=== PATIENT | female | born 1935 | race Caucasian/White ===

== ENCOUNTER 2017-09-03 12:40 | Inpatient (IN) | payer MEDICARE, OTHER ==
[2017-09-03] VITALS (8 sets, daily range): BP systolic 103–127; BP diastolic 49–68; PULSE 78–93; RESP 16–20; TEMP 98.2–99.5; O2SAT 93–98
[~2017-09-03] VITALS: Ht 165.1 cm; Wt 94.7 kg
[~2017-09-03 12:40] MED LIST: ACET325 PO; ATOR20TA42 PO; CALTCHW4 PO; CITA-48 PO; COEN400C PO; COUG100S2 PO; ENOX100P SQ; FAMO20TA2 PO; FENO50TA PO; FISH100020 OR; FOSI10TA PO; FURO20 PO; LORA-392 PO; METO50CR PO; NITR0.4S SL; OMEP20TA PO; POTA-267 PO; SM A81CH PO; TOPI25 PO; [UNRECOGNIZED DRUG - CODE] PO
[2017-09-03] MEDS ORDERED: SODIUM CHLOR 0.9% 1000 ML INJ 1,000 ML IV ONE (12:52)
--- NOTE | 2017-09-03 12:59 | PD ---
HPI Chief Complaint: Diarrhea Time Seen by Provider: 12:43 Travel History International Travel<30 days: No Contact w/Intl Traveler<30days: No Traveled to known affect area: No History of Present Illness HPI The patient is a 82-year-old female who presents to the emergency department via EMS for diarrhea. The patient states she developed diarrhea last Tuesday, the diarrhea has been constant per her report. She describes the diarrhea as loose and watery without any visible blood. The patient had a home physician visit her, Dr. Walls, who prescribed Imodium. However, the patient continues to have diarrhea. The patient also complains of intermittent abdominal pain and cramping, does complain of left lower quadrant abdominal pain. The patient denies any fever, chills, or sweats. She denies any history of recent international travel or history of C. difficile. She is unsure if she has been on any antibiotics recently, but does note a recent ulceration to the left lower extremity. Symptoms are moderate. She denies any nausea or vomiting. She is also been trying a brat diet, however, continues to have symptoms. PFSH Past Medical History Arthritis: Yes Asthma: No Anxiety: Yes (TAKE XANAX AT BEDTIME) Depression: No Heart Rhythm Problems: Yes (CARDIO MYOPATHY) Cancer: Yes (BREAST/ MASTECTOMY RIGHT ) Cardiac Catheterization: Yes Cardiomyopathy: Yes Cardiovascular Problems: Yes (CHF) Chest Pain: No Congestive Heart Failure: Yes COPD: No Diabetes: No Diminished Hearing: No GERD: Yes Genitourinary: Yes Hiatal Hernia: No Hypertension: Yes Kidney Stones: No Musculoskeletal: Yes Neurologic: No Psychiatric: No Reproductive: No Respiratory: Yes (SLEEP APNEA) Immunizations Current: Yes Renal Failure: No Sickle Cell Disease: No Sleep Apnea: Yes (DENIES USE OF MACHINES) Thyroid Disease: No Ulcer: No : 1 Para: 0 Past Surgical History Abdominal Surgery: No AICD: Yes Arteriovenous Shunt: No Cardiac Surgery: Yes (PACE MAKER AND DEFIBRILATOR/STENT) Coronary Stent: Yes Ear Surgery: No Endocrine Surgery: No Eye Surgery: Yes (IMPLANTS BILATERAL) Genitourinary Surgery: No Gynecologic Surgery: No Insulin Pump: No Joint Replacement: Yes (RIGHT HIP) Mastectomy: Yes (RIGHT ) Oral Surgery: No Pacemaker: Yes ("METRONIC" PER PATIENT) Thoracic Surgery: No Tonsillectomy: Yes (AND ADENOIDS) Social History Alcohol Use: No Tobacco Use: No (FORMER) Substance Use: No Allergies-Medications (Allergen,Severity, Reaction): Coded Allergies: codeine (Unverified Allergy, Severe, Nausea/Vomiting, 01/05/17) ciprofloxacin (Verified Allergy, Intermediate, Rash, 09/03/17) Rash with itching when given intravenously Reported Meds & Prescriptions Reported Meds & Active Scripts Active Reported Furosemide 20 Mg Tab 20 Mg PO DAILY Tramadol (Tramadol HCl) 50 Mg Tab 50 Mg PO Q6H PRN Loperamide (Loperamide HCl) 2 Mg Tablet Lorazepam 0.5 Mg Tab 0.5 Mg PO Q6H PRN Review of Systems Except as stated in HPI: all other systems reviewed are Neg General / Constitutional: No: Fever HENT: No: Headaches, Lightheadedness Cardiovascular: No: Chest Pain or Discomfort Respiratory: No: Shortness of Breath Gastrointestinal: Positive: Diarrhea, Abdominal Pain, No: Nausea, Vomiting Genitourinary: No: Dysuria Musculoskeletal: Positive: Weakness Neurologic: Positive: Weakness Physical Exam Narrative GENERAL: Awake, alert, pleasant 82-year-old female who appears her stated age and is in no acute respiratory distress. SKIN: Focused skin assessment warm/dry. HEAD: Atraumatic. Normocephalic. EYES: Pupils equal and round. No scleral icterus. No injection or drainage. ENT: No nasal bleeding or discharge. Mucous membranes pink and moist. NECK: Trachea midline. No JVD. CARDIOVASCULAR: Regular rate and rhythm. No murmur appreciated. RESPIRATORY: No accessory muscle use. Clear to auscultation. Breath sounds equal bilaterally. GASTROINTESTINAL: Abdomen soft, obese, tender to palpation left lower quadrant and left upper quadrant. MUSCULOSKELETAL: No obvious deformities. No clubbing. No cyanosis. No edema. Superficial ulceration over the dorsal aspect left foot that measures 2.5 cm x 1 cm, appears old. No acute drainage or bleeding. Minimal surrounding erythema. Positive pulses. NEUROLOGICAL: Awake and alert. No obvious cranial nerve deficits. Motor grossly within normal limits. Normal speech. PSYCHIATRIC: Appropriate mood and affect; insight and judgment normal. Data Data Last Documented VS Vital Signs Date Time Temp Pulse Resp B/P (MAP) Pulse Ox O2 Delivery O2 Flow Rate FiO2 09/03/17 13:07 78 19 103/49 (67) 95 Nasal Cannula 2.00 09/03/17 13:04 98.2 Orders Orders Complete Blood Count With Diff (09/03/17 12:52) Comprehensive Metabolic Panel (09/03/17 12:52) Urinalysis - C+S If Indicated (09/03/17 12:52) Lipase (09/03/17 12:52) Ct Abd/Pel W Iv Contrast(Rout) (09/03/17 ) Iv Access Insert/Monitor (09/03/17 12:52) Ecg Monitoring (09/03/17 12:52) Oximetry (09/03/17 12:52) Morphine Inj (Morphine Inj) (09/03/17 13:00) Ondansetron Inj (Zofran Inj) (09/03/17 13:00) Sodium Chlor 0.9% 1000 Ml Inj (Ns 1000 M (09/03/17 12:52) Sodium Chloride 0.9% Flush (Ns Flush) (09/03/17 13:00) C Diff Toxin Pcr (09/03/17 12:52) Dicyclomine (Bentyl) (09/03/17 13:00) Lactic Acid (09/03/17 12:52) Lorazepam Inj (Ativan Inj) (09/03/17 13:45) Blood Culture (09/03/17 14:17) Urine Culture (09/03/17 13:50) Iodixanol 320 Inj (Rad Ct) (Visipaque 32 (09/03/17 14:45) Ceftriaxone Inj (Rocephin Inj) (09/03/17 15:15) Ciprofloxacin 400 Mg Premix (Cipro 400 M (09/03/17 15:15) Metronidazole 500 Mg Inj (Flagyl 500 Mg (09/03/17 15:15) Ceftriaxone Inj (Rocephin Inj) (09/03/17 15:30) Diphenhydramine Inj (Benadryl Inj) (09/03/17 15:30) Sodium Chlorid 0.9% 500 Ml Inj (Ns 500 M (09/03/17 15:30) Piperacil-Tazo 4.5 Gm Premix (Zosyn 4.5 (09/03/17 15:30) Labs Laboratory Tests Test 09/03/17 13:15 09/03/17 13:50 White Blood Count 13.9 TH/MM3 Red Blood Count 4.61 MIL/MM3 Hemoglobin 15.3 GM/DL Hematocrit 44.0 % Mean Corpuscular Volume 95.5 FL Mean Corpuscular Hemoglobin 33.2 PG Mean Corpuscular Hemoglobin Concent 34.8 % Red Cell Distribution Width 14.8 % Platelet Count 166 TH/MM3 Mean Platelet Volume 7.9 FL Neutrophils (%) (Auto) 75.0 % Lymphocytes (%) (Auto) 13.3 % Monocytes (%) (Auto) 11.4 % Eosinophils (%) (Auto) 0.2 % Basophils (%) (Auto) 0.1 % Neutrophils # (Auto) 10.4 TH/MM3 Lymphocytes # (Auto) 1.8 TH/MM3 Monocytes # (Auto) 1.6 TH/MM3 Eosinophils # (Auto) 0.0 TH/MM3 Basophils # (Auto) 0.0 TH/MM3 CBC Comment AUTO DIFF Differential Total Cells Counted 100 Neutrophils % (Manual) 37 % Band Neutrophils % 36 % Lymphocytes % 12 % Monocytes % 15 % Neutrophils # (Manual) 10.1 TH/MM3 Differential Comment FINAL DIFF MANUAL Toxic Granulation 1+ Toxic Vacuolation PRESENT Platelet Estimate NORMAL Platelet Morphology Comment NORMAL Blood Urea Nitrogen 34 MG/DL Creatinine 1.36 MG/DL Random Glucose 107 MG/DL Total Protein 6.2 GM/DL Albumin 2.9 GM/DL Calcium Level 9.3 MG/DL Alkaline Phosphatase 59 U/L Aspartate Amino Transf (AST/SGOT) 18 U/L Alanine Aminotransferase (ALT/SGPT) 23 U/L Total Bilirubin 1.1 MG/DL Sodium Level 135 MEQ/L Potassium Level 4.0 MEQ/L Chloride Level 103 MEQ/L Carbon Dioxide Level 22.2 MEQ/L Anion Gap 10 MEQ/L Estimat Glomerular Filtration Rate 37 ML/MIN Lactic Acid Level 1.0 mmol/L Lipase 357 U/L Urine Color YELLOW Urine Turbidity HAZY Urine pH 5.5 Urine Specific [place] 1.023 Urine Protein TRACE mg/dL Urine Glucose (UA) NEG mg/dL Urine Ketones NEG mg/dL Urine Occult Blood NEG Urine Nitrite POS Urine Bilirubin NEG Urine Urobilinogen LESS THAN 2.0 MG/DL Urine Leukocyte Esterase LARGE Urine RBC 3 /hpf Urine WBC 29 /hpf Urine WBC Clumps FEW Urine Squamous Epithelial Cells 4 /hpf Urine Transitional Epithelial Cells <1 /hpf Urine Bacteria MANY /hpf Urine Hyaline Casts 11 /lpf Urine Mucus MOD /lpf Microscopic Urinalysis Comment CATH-CULTURE IND MDM Medical Decision Making Medical Screen Exam Complete: Yes Emergency Medical Condition: Yes Medical Record Reviewed: Yes Interpretation(s) Laboratory Tests Test 09/03/17 13:15 09/03/17 13:50 White Blood Count 13.9 TH/MM3 Red Blood Count 4.61 MIL/MM3 Hemoglobin 15.3 GM/DL Hematocrit 44.0 % Mean Corpuscular Volume 95.5 FL Mean Corpuscular Hemoglobin 33.2 PG Mean Corpuscular Hemoglobin Concent 34.8 % Red Cell Distribution Width 14.8 % Platelet Count 166 TH/MM3 Mean Platelet Volume 7.9 FL Neutrophils (%) (Auto) 75.0 % Lymphocytes (%) (Auto) 13.3 % Monocytes (%) (Auto) 11.4 % Eosinophils (%) (Auto) 0.2 % Basophils (%) (Auto) 0.1 % Neutrophils # (Auto) 10.4 TH/MM3 Lymphocytes # (Auto) 1.8 TH/MM3 Monocytes # (Auto) 1.6 TH/MM3 Eosinophils # (Auto) 0.0 TH/MM3 Basophils # (Auto) 0.0 TH/MM3 CBC Comment AUTO DIFF Differential Total Cells Counted 100 Neutrophils % (Manual) 37 % Band Neutrophils % 36 % Lymphocytes % 12 % Monocytes % 15 % Neutrophils # (Manual) 10.1 TH/MM3 Differential Comment FINAL DIFF MANUAL Toxic Granulation 1+ Toxic Vacuolation PRESENT Platelet Estimate NORMAL Platelet Morphology Comment NORMAL Blood Urea Nitrogen 34 MG/DL Creatinine 1.36 MG/DL Random Glucose 107 MG/DL Total Protein 6.2 GM/DL Albumin 2.9 GM/DL Calcium Level 9.3 MG/DL Alkaline Phosphatase 59 U/L Aspartate Amino Transf (AST/SGOT) 18 U/L Alanine Aminotransferase (ALT/SGPT) 23 U/L Total Bilirubin 1.1 MG/DL Sodium Level 135 MEQ/L Potassium Level 4.0 MEQ/L Chloride Level 103 MEQ/L Carbon Dioxide Level 22.2 MEQ/L Anion Gap 10 MEQ/L Estimat Glomerular Filtration Rate 37 ML/MIN Lactic Acid Level 1.0 mmol/L Lipase 357 U/L Urine Color YELLOW Urine Turbidity HAZY Urine pH 5.5 Urine Specific [place] 1.023 Urine Protein TRACE mg/dL Urine Glucose (UA) NEG mg/dL Urine Ketones NEG mg/dL Urine Occult Blood NEG Urine Nitrite POS Urine Bilirubin NEG Urine Urobilinogen LESS THAN 2.0 MG/DL Urine Leukocyte Esterase LARGE Urine RBC 3 /hpf Urine WBC 29 /hpf Urine WBC Clumps FEW Urine Squamous Epithelial Cells 4 /hpf Urine Transitional Epithelial Cells <1 /hpf Urine Bacteria MANY /hpf Urine Hyaline Casts 11 /lpf Urine Mucus MOD /lpf Microscopic Urinalysis Comment CATH-CULTURE IND Last Impressions Abdomen/Pelvis CT 09/03/17 0000 Signed Impressions: Service Date/Time: Sunday, September 03, 2017 14:24 - CONCLUSION: Scan appearance consistent with colitis Ridge Chopra MD Differential Diagnosis Differential diagnosis includes infectious diarrhea, inflammatory diarrhea, diverticulitis, colitis, C. difficile, dehydration, electrolyte abnormality. Narrative Course IV was established, labs are drawn and sent, and the patient was placed on cardiac telemetry monitoring and continuous pulse oximetry monitoring. The patient was administered morphine, Zofran, Bentyl, and IV fluids. C. difficile was ordered. CT of the abdomen and pelvis with IV contrast was obtained. Patient's white count was elevated at 13.9 with bandemia of 36%. UA was positive for UTI. Lactic acid was normal. CT the abdomen and pelvis is consistent with colitis. The patient was administered Cipro for UTI and colitis as well as Flagyl 500 mg intravenously. The patient has colitis, UTI, and leukocytosis with bandemia. Therefore, the patient will be admitted to the on-call medical service. The patient's home health physician is Dr. Walls, therefore, the on-call medical service, [facility], were paged for admission. The patient developed left arm pain and discomfort with itching and a red line from the IV up to the left axilla after the Cipro was started. Therefore, the Cipro was immediately discontinued. The patient was administered IV fluids and Benadryl. The patient was then ordered Rocephin 1 g intravenously for the UTI, we will continue the Flagyl for the colitis. However, I discussed the patient with Dr. Velázquez who request that the patient receive Zosyn. Therefore, the Rocephin was canceled the patient was ordered Zosyn. Sepsis Criteria SIRS Criteria (2 or more): WBC > 93193, < 4000 or > 10% bands Physician Communication Physician Communication [facility] were paged for admission. Diagnosis Primary Impression: Colitis Additional Impressions: UTI (urinary tract infection) Qualified Codes: N30.00 - Acute cystitis without hematuria Bandemia Admitting Information Admitting Physician Requests: Admit Condition: Stable Fly Trent MD Sep 03, 2017 12:59
[2017-09-03] MEDS ORDERED: SODIUM CHLORIDE 0.9% FLUSH 10 ML FLUSH IVF PRN (13:00)
[2017-09-03] MEDS ORDERED: DICYCLOMINE HCL 10 MG CAP PO ONE (13:00)
[2017-09-03] MEDS ORDERED: ONDANSETRON HCL 4 MG/2 ML VIAL IV PUSH ONE (13:00)
[2017-09-03] MEDS ORDERED: MORPHINE SULFATE 4 MG/ML INJ IV PUSH ONE (13:00)
[2017-09-03 13:29] LABS: AUTOMATED NEUTROPHIL # 10.4 TH/MM3 (1.8-7.7); BASOPHIL % 0.1 % (0.0-2.0); EOSINOPHIL % 0.2 % (0.0-4.0); HEMOGLOBIN 15.3 GM/DL (11.6-15.3); LYMPH % 13.3 % (9.0-44.0); LYMPHOCYTE # 1.8 TH/MM3 (1.0-4.8); MEAN CELL VOLUME 95.5 FL (80.0-100.0); MEAN CORPUSCULAR HEMOGLOBIN 33.2 PG (27.0-34.0); MEAN CORPUSCULAR HGB CONC 34.8 % (32.0-36.0); MEAN PLATELET VOLUME 7.9 FL (7.0-11.0); MONO % 11.4 % (0.0-8.0); MONOCYTE # 1.6 TH/MM3 (0-0.9); PLATELET COUNT 166 TH/MM3 (150-450); RED BLOOD COUNT 4.61 MIL/MM3 (4.00-5.30); RED CELL DISTRIBUTION WIDTH 14.8 % (11.6-17.2); WHITE BLOOD COUNT 13.9 TH/MM3 (4.0-11.0)
[2017-09-03 13:45] LABS: ALBUMIN 2.9 GM/DL (3.4-5.0); ALT (GPT) 23 U/L (10-53); AST (GOT) 18 U/L (15-37); BICARBONATE 22.2 MEQ/L (21.0-32.0); BLOOD UREA NITROGEN 34 MG/DL (7-18); CALCIUM 9.3 MG/DL (8.5-10.1); CHLORIDE 103 MEQ/L (98-107); CREATININE 1.36 MG/DL (0.50-1.00); GLOMERULAR FILTRATION RATE 37 ML/MIN (>89); GLUCOSE,RANDOM 107 MG/DL (74-106); SODIUM (NA) 135 MEQ/L (136-145)
[2017-09-03] MEDS ORDERED: LORazepam 2 MG/ML VIAL IV PUSH ONE (13:45)
[2017-09-03 13:48] LABS: ALKALINE PHOSPHATASE 59 U/L (45-117); TOTAL BILIRUBIN ADULT 1.1 MG/DL (0.2-1.0); TOTAL PROTEIN 6.2 GM/DL (6.4-8.2)
[2017-09-03 14:04] LABS: BANDS 36 % (0-6); LYMPHOCYTES 12 % (9-44); MONOCYTES 15 % (0-8); NEUTROPHIL # MANUAL DIFF 10.1 TH/MM3 (1.8-7.7); POLYS (SEG NEUTROPHILS) 37 % (16-70)
[2017-09-03 14:05] LABS: TOXIC GRANULATION 1+ (NORMAL); TOXIC VACUOLATION PRESENT (NONE SEEN)
[2017-09-03] MEDS ORDERED: TRAM50TA PO (14:17)
[2017-09-03] MEDS ORDERED: FURO20TA PO (14:17)
[2017-09-03] MEDS ORDERED: LOPE2TAB21 (14:17)
[2017-09-03] MEDS ORDERED: LORA0.5T PO (14:17)
[2017-09-03 14:20] LABS: BACTERIA, URINE MANY /hpf; BILIRUBIN, URINE NEG (NEG); BLOOD, URINE NEG (NEG); GLUCOSE,URINE NEG (NEG); HYALINE CAST, URINE 11 /lpf (RARE); KETONE, URINE NEG (NEG); MUCUS URINE MOD /lpf (OCC); NITRITE,URINE POS (NEG); PH, URINE 5.5 (5.0-8.5); SQUAMOUS EPITHELIAL CELL URINE 4 /hpf (0-5); TRANSITIONAL EPI CELLS, URINE <1 /hpf; URINE COLOR YELLOW (YELLW/STRAW); URINE LEUKOCYTE ESTERASE LARGE (NEG); WHITE BLOOD CELL CLUMPS FEW
[2017-09-03] MEDS ORDERED: IODIXANOL 320 MG/ML 10 ML VIAL (for Rad CT) IVCONTRAST ONE (14:45)
--- NOTE | 2017-09-03 15:04 | RADRPT ---
EXAM DATE/TIME: 09/03/2017 14:24 [place] COMPARISON: No previous studies available for comparison. INDICATIONS : Lower abdomen pain and diarrhea for one week. IV CONTRAST: 50 cc Visipaque (iodixanol) IV ORAL CONTRAST: No oral contrast ingested. RADIATION DOSE: 15.92 CTDIvol (mGy) MEDICAL HISTORY : Carcinoma, breast. Congestive heart failure. Hypertension. SURGICAL HISTORY : mastectomy ENCOUNTER: Initial ACUITY: 1 week PAIN SCALE: 5/10 LOCATION: Bilateral lower quadrant TECHNIQUE: Volumetric scanning of the abdomen and pelvis was performed. Using automated exposure control and ad justment of the mA and/or kV according to patient size, radiation dose was kept as low as reasonably achievable to obtain optimal diagnostic quality images. DICOM format image data is available electro nically for review and comparison. FINDINGS: LOWER LUNGS: Mild posterior lung base atelectasis. LIVER: Cyst in the dome of the liver. Multiple calcified gallstones. No biliary ductal dilatation. No suspic ious mass. SPLEEN: Normal size without lesion. PANCREAS: Within normal limits. KIDNEYS: Nonobstructing midpole left renal stone. Bilateral renal cysts. No evidence of hydronephrosis. ADRENAL GLANDS: Within normal limits. VASCULAR: There is no aortic aneurysm. BOWEL/MESENTERY: Mild concentric wall thickening involving the colon, most conspicuously involving the ascending colon and the rectosigmoid with slight pericolic fatty tissue induration, appearance most consistent with colitis. The small bowel is nondilated. There is minimal free pelvic fluid identified. No loculated c ollections. No extraluminal air. ABDOMINAL WALL: Within normal limits. RETROPERITONEUM: There is no lymphadenopathy. BLADDER: No wall thickening or mass. REPRODUCTIVE: Within normal limits. INGUINAL: There is no lymphadenopathy or hernia. MUSCULOSKELETAL: Within normal limits for patient age. CONCLUSION: Scan appearance consistent with colitis Ridge Chopra MD on September 03, 2017 at 14:58 Board Certified Radiologist. This report was verified electronically.
[2017-09-03] MEDS ORDERED: metroNIDAZOLE 500 MG INJ 100 ML IV ONE (15:15)
[2017-09-03] MEDS ORDERED: CIPROFLOXACIN 400 MG PREMIX 200 ML IV ONE (15:15)
[2017-09-03] MEDS ORDERED: cefTRIAXone INJ 1,000 MG in SODIUM CHLORIDE 0.9% INJ 100 ML IV ONE ×2 (15:15→15:30)
[2017-09-03] MEDS ORDERED: diphenhydrAMINE HCL 50 MG/ML VIAL IV PUSH ONE (15:30)
[2017-09-03] MEDS ORDERED: PIPERACIL-TAZO 4.5 GM PREMIX 100 ML IV ONE (15:30)
[2017-09-03] MEDS ORDERED: SODIUM CHLORID 0.9% 500 ML INJ 500 ML IV ONE (15:30)
[2017-09-03] MEDS ORDERED: ACETAMINOPHEN 325 MG TAB PO PRN (15:45)
[2017-09-03] MEDS ORDERED: LACTULOSE SYRUP 20 GM/30 ML CUP PO PRN (15:45)
[2017-09-03] MEDS ORDERED: ONDANSETRON HCL 4 MG/2 ML VIAL IVP PRN (15:45)
[2017-09-03] MEDS ORDERED: SODIUM CHLORIDE 0.9% FLUSH 10 ML FLUSH IV FLUSH PRN (15:45)
[2017-09-03] MEDS ORDERED: MAGNESIUM HYDROXIDE SUSP 30 ML CUP PO PRN (15:45)
[2017-09-03] MEDS ORDERED: NALOXONE HCL 0.4 MG/ML AMP IV PUSH PRN (15:45)
[2017-09-03] MEDS ORDERED: BISACODYL 10 MG SUPP RECTAL PRN (15:45)
[2017-09-03] MEDS ORDERED: SENNOSIDES 8.6 MG TAB PO PRN (15:45)
--- NOTE | 2017-09-03 15:50 | HHI.HP ---
HPI Service [facility] Hospitalists Primary Care Physician Babar Aparicio MD Admission Diagnosis Colitis, UTI, leukocytosis with bandemia Diagnoses: Chief Complaint: Diarrhea Travel History International Travel<30 Days: No Contact w/Intl Traveler <30 Da: No Traveled to Known Affected Are: No History of Present Illness This is an 82-year-old female with extensive past medical history as stated below who presents to [facility] complaining of diarrhea. The patient states that she developed diarrhea last Tuesday and the diarrhea has been constant. The patient complains of diffuse abdominal pain, constant, nonradiating, more localized over the left side of the abdomen. The patient also states she has had decreased appetite and decreased oral intake. The patient states she has been seen by Dr. Walls who gave her an antibiotic and also Imodium. However the patient continued to have diarrhea. The patient denies fevers or chills, patient states at times she had intermittent abdominal pain and cramping. Patient denies nausea vomiting or diarrhea. The patient denies any recent travel, sick contacts or history of C. difficile. Review of Systems As per HPI, other systems reviewed by me and negative. Past Family Social History Past Medical History 1. Hypertension 2. GERD 3. Chronic UTI. 3. Hyperlipidemia. 4. Depression. 5. Osteoporosis. 6. Also arthritis. 7. Breast cancer status post mastectomy. Past Surgical History 1. Mastectomy. 2. AICD. 3. Cardiac catheterization. 4. Right total hip arthroplasty. 5. Dupuytren's release in both hands. Reported Medications Reported Meds & Active Scripts Active Reported Furosemide 20 Mg Tab 20 Mg PO DAILY Tramadol (Tramadol HCl) 50 Mg Tab 50 Mg PO Q6H PRN Loperamide (Loperamide HCl) 2 Mg Tablet Lorazepam 0.5 Mg Tab 0.5 Mg PO Q6H PRN Allergies: Coded Allergies: codeine (Unverified Allergy, Severe, Nausea/Vomiting, 01/05/17) ciprofloxacin (Verified Allergy, Intermediate, Rash, 09/03/17) Rash with itching when given intravenously Active Ordered Medications Current Medications Medications (Trade) Dose Ordered Sig/Dianne Route Start Time Stop Time Status Last Admin Sodium Chloride 1,000 ml @ 125 mls/hr Q8H ONCE IV 09/03/17 12:52 09/03/17 20:51 09/03/17 13:24 (NS Flush) 2 ml UNSCH PRN IVF 09/03/17 13:00 09/03/17 13:25 Ciprofloxacin/ Dextrose 200 ml @ 200 mls/hr ONCE ONCE IV 09/03/17 15:15 09/03/17 16:14 Metronidazole 100 ml @ 100 mls/hr ONCE ONCE IV 09/03/17 15:15 09/03/17 16:14 09/03/17 15:25 Sodium Chloride 500 ml @ 500 mls/hr BOLUS ONCE IV 09/03/17 15:30 09/03/17 16:29 09/03/17 15:25 Piperacillin Sod/ Tazobactam Sod 100 ml @ 200 mls/hr ONCE ONCE IV 09/03/17 15:30 09/03/17 15:59 Family History Patient's father at 89 years old. Patient's mother of unknown causes. Social History Patient denies smoking, denies alcohol or illegal drug use. Physical Exam Vital Signs Vital Signs Date Time Temp Pulse Resp B/P (MAP) Pulse Ox O2 Delivery O2 Flow Rate FiO2 09/03/17 13:07 78 19 103/49 (67) 95 Nasal Cannula 2.00 09/03/17 13:04 98.2 79 19 103/49 (67) Physical Exam GENERAL: This is a well-nourished, well-developed patient, in no apparent distress. SKIN: No rashes, ecchymoses or lesions. Cool and dry. HEAD: Atraumatic. Normocephalic. No temporal or scalp tenderness. EYES: Pupils equal round and reactive. Extraocular motions intact. No scleral icterus. No injection or drainage. ENT: Nose without bleeding, purulent drainage or septal hematoma. Throat without erythema, tonsillar hypertrophy or exudate. Uvula midline. Airway patent. NECK: Trachea midline. No JVD or lymphadenopathy. Supple, nontender, no meningeal signs. CARDIOVASCULAR: Regular rate and rhythm without murmurs, gallops, or rubs. RESPIRATORY: Clear to auscultation. Breath sounds equal bilaterally. No wheezes , rales, or rhonchi. GASTROINTESTINAL: Abdomen soft, mildly distended, tender to palpation diffusely but more localized over the left side of the abdomen and left lower quadrant. No hepato-splenomegaly, or palpable masses. No guarding. MUSCULOSKELETAL: Extremities without clubbing, cyanosis, or edema. No joint tenderness, effusion, or edema noted. No calf tenderness. Negative Homans sign bilaterally. NEUROLOGICAL: Awake and alert. Cranial nerves II through XII intact. Motor and sensory grossly within normal limits. Five out of 5 muscle strength in all muscle groups. Normal speech. Laboratory Laboratory Tests Test 09/03/17 13:15 09/03/17 13:50 White Blood Count 13.9 Red Blood Count 4.61 Hemoglobin 15.3 Hematocrit 44.0 Mean Corpuscular Volume 95.5 Mean Corpuscular Hemoglobin 33.2 Mean Corpuscular Hemoglobin Concent 34.8 Red Cell Distribution Width 14.8 Platelet Count 166 Mean Platelet Volume 7.9 Neutrophils (%) (Auto) 75.0 Lymphocytes (%) (Auto) 13.3 Monocytes (%) (Auto) 11.4 Eosinophils (%) (Auto) 0.2 Basophils (%) (Auto) 0.1 Neutrophils # (Auto) 10.4 Lymphocytes # (Auto) 1.8 Monocytes # (Auto) 1.6 Eosinophils # (Auto) 0.0 Basophils # (Auto) 0.0 CBC Comment AUTO DIFF Differential Total Cells Counted 100 Neutrophils % (Manual) 37 Band Neutrophils % 36 Lymphocytes % 12 Monocytes % 15 Neutrophils # (Manual) 10.1 Differential Comment FINAL DIFF MANUAL Toxic Granulation 1+ Toxic Vacuolation PRESENT Platelet Estimate NORMAL Platelet Morphology Comment NORMAL Blood Urea Nitrogen 34 Creatinine 1.36 Random Glucose 107 Total Protein 6.2 Albumin 2.9 Calcium Level 9.3 Alkaline Phosphatase 59 Aspartate Amino Transf (AST/SGOT) 18 Alanine Aminotransferase (ALT/SGPT) 23 Total Bilirubin 1.1 Sodium Level 135 Potassium Level 4.0 Chloride Level 103 Carbon Dioxide Level 22.2 Anion Gap 10 Estimat Glomerular Filtration Rate 37 Lactic Acid Level 1.0 Lipase 357 Urine Color YELLOW Urine Turbidity HAZY Urine pH 5.5 Urine Specific [place] 1.023 Urine Protein TRACE Urine Glucose (UA) NEG Urine Ketones NEG Urine Occult Blood NEG Urine Nitrite POS Urine Bilirubin NEG Urine Urobilinogen LESS THAN 2.0 Urine Leukocyte Esterase LARGE Urine RBC 3 Urine WBC 29 Urine WBC Clumps FEW Urine Squamous Epithelial Cells 4 Urine Transitional Epithelial Cells <1 Urine Bacteria MANY Urine Hyaline Casts 11 Urine Mucus MOD Microscopic Urinalysis Comment CATH-CULTURE IND Date/Time Source Procedure Growth Status 09/03/17 14:45 Blood Peripheral Aerobic Blood Culture Pending Received 09/03/17 14:45 Blood Peripheral Anaerobic Blood Culture Pending Received 09/03/17 13:50 Urine Catheterized Urine Urine Culture Pending Received Result Diagram: 09/03/17 1315 09/03/17 1315 Imaging Last Impressions Abdomen/Pelvis CT 09/03/17 0000 Signed Impressions: Service Date/Time: Sunday, September 03, 2017 14:24 - CONCLUSION: Scan appearance consistent with colitis Ridge Chopra MD Reviewed by me. Caprini VTE Risk Assessment Caprini VTE Risk Assessment: Mod/High Risk (score >= 2) Caprini Risk Assessment Model Point Value = 1 Point Value = 2 Point Value = 3 Point Value = 5 Age 41-60 Minor surgery BMI > 25 kg/m2 Swollen legs Varicose veins or History of unexplained or recurrent spontaneous Oral contraceptives or hormone replacement Sepsis (< 1 month) Serious lung disease, including pneumonia (< 1 month) Abnormal pulmonary function Acute myocardial infarction Congestive heart failure (< 1 month) History of inflammatory bowel disease Medical patient at bed rest Age 61-74 Arthroscopic surgery Major open surgery (> 45 min) Laparoscopic surgery (> 45 min) Malignancy Confined to bed (> 72 hours) Immobilizing plaster cast Central venous access Age >= 75 History of VTE Family history of VTE Factor V Leiden Prothrombin [id number] Lupus anticoagulant Anticardiolipin antibodies Elevated serum homocysteine Heparin-induced thrombocytopenia Other congenital or acquired thrombophilia Stroke (< 1 month) Elective arthroplasty Hip, pelvis, or leg fracture Acute spinal cord injury (< 1 month) Prophylaxis Regimen Total Risk Factor Score Risk Level Prophylaxis Regimen 0-1 Low Early ambulation 2 Moderate Order ONE of the following: *Sequential Compression Device (SCD) *Heparin 5000 units SQ BID 3-4 Higher Order ONE of the following medications: *Heparin 5000 units SQ TID *Enoxaparin/Lovenox 40 mg SQ daily (WT < 150 kg, CrCl > 30 mL/min) *Enoxaparin/Lovenox 30 mg SQ daily (WT < 150 kg, CrCl > 10-29 mL/min) *Enoxaparin/Lovenox 30 mg SQ BID (WT < 150 kg, CrCl > 30 mL/min) AND/OR *Sequential Compression Device (SCD) 5 or more Highest Order ONE of the following medications: *Heparin 5000 units SQ TID (Preferred with Epidurals) *Enoxaparin/Lovenox 40 mg SQ daily (WT < 150 kg, CrCl > 30 mL/min) *Enoxaparin/Lovenox 30 mg SQ daily (WT < 150 kg, CrCl > 10-29 mL/min) *Enoxaparin/Lovenox 30 mg SQ BID (WT < 150 kg, CrCl > 30 mL/min) AND *Sequential Compression Device (SCD) Assessment and Plan Problem List: (1) Colitis ICD Code: K52.9 - Noninfective gastroenteritis and colitis, unspecified Status: Acute (2) UTI (urinary tract infection) ICD Code: N39.0 - Urinary tract infection, site not specified Status: Acute (3) Bandemia ICD Code: D72.825 - Bandemia Status: Acute (4) AICD (automatic cardioverter/defibrillator) present ICD Code: Z95.810 - AICD (automatic cardioverter/defibrillator) present Status: Acute (5) INA (acute kidney injury) ICD Code: N17.9 - Acute kidney failure, unspecified Status: Acute Plan: As per review of records the patient has a baseline creatinine of 0.7- 0.8. Likely due to prerenal azotemia and dehydration from diarrhea. (6) Diarrhea ICD Code: R19.7 - Diarrhea, unspecified Assessment and Plan Admit the patient to medical floor IV fluids IV Zosyn. Follow-up blood cultures Epigastric normal Monitor BUN/creatinine, avoid nephrotoxins, history I's and O's. Monitor CBC with differential. Follow-up urine culture Clear liquid diet Consult neurology Obtain stool studies Hold Imodium and furosemide. Follow-up received toxin PCR ordered by the emergency department. Hold antihypertensive medications Resume statin and other chronic medications once medication reconciliation form has been completed. Lovenox subcutaneously and SCDs for DVT prophylaxis. Code Status Full code Discussed Condition With ED physician, patient. Physician Certification 2 Midnight Certification Type: Admission for Inpatient Services Order for Inpatient Services The services are ordered in accordance with Medicare regulations or non- Medicare payer requirements, as applicable. In the case of services not specified as inpatient-only, they are appropriately provided as inpatient services in accordance with the 2-midnight benchmark. Estimated LOS (days): 3 days is the estimated time the patient will need to remain in the hospital, assuming treatment plan goals are met and no additional complications. Post-Hospital Plan: Not yet determined Problem Qualifiers (1) UTI (urinary tract infection): Qualified Codes: N30.00 - Acute cystitis without hematuria Erik Neil MD Sep 03, 2017 15:50
[2017-09-03] MEDS: SODIUM CHLOR 0.9% 1000 ML INJ 1,000 ML IV SCH (16:30)
[2017-09-03] MEDS ORDERED: FOSI10TA PO (16:59)
[2017-09-03] MEDS ORDERED: FAMO20TA2 PO (16:59)
[2017-09-03] MEDS ORDERED: METO50TA PO (16:59)
[2017-09-03] MEDS ORDERED: NITR1CAP36 PO (16:59)
[2017-09-03] MEDS ORDERED: CITA40TA4 PO (16:59)
[2017-09-03] MEDS ORDERED: ATOR20TA15 PO (16:59)
[2017-09-03] MEDS ORDERED: TOPI25TA7 PO (16:59)
[2017-09-03] MEDS ORDERED: OMEP20TA93 PO (16:59)
[2017-09-03] MEDS ORDERED: ASPI81CH6 CHEW (16:59)
[2017-09-03] MEDS ORDERED: FENO145T2 PO (16:59)
[2017-09-03] MEDS: ENOXAPARIN SODIUM 40 MG/0.4 ML SYRINGE SQ SCH (19:11)
[2017-09-03] MEDS: DOCUSATE SODIUM 50 MG/SENNA 8.6 MG TAB PO SCH (20:48)
[2017-09-03] MEDS: SODIUM CHLORIDE 0.9% FLUSH 10 ML FLUSH IV FLUSH SCH (20:48)
[2017-09-03] MEDS: PIPERACIL-TAZO 2.25 GM PREMIX 50 ML IV SCH (23:25)
[2017-09-04] VITALS (9 sets, daily range): BP systolic 100–120; BP diastolic 54–60; PULSE 69–108; RESP 20–22; TEMP 98.5–99.9; O2SAT 92–94
[2017-09-04] MEDS: SODIUM CHLOR 0.9% 1000 ML INJ 1,000 ML IV SCH ×2 (01:32→04:52)
[2017-09-04 05:16] LABS: AUTOMATED NEUTROPHIL # 12.3 TH/MM3 (1.8-7.7); BASOPHIL % 0.1 % (0.0-2.0); HEMATOCRIT 40.8 % (35.0-46.0); LYMPH % 8.7 % (9.0-44.0); LYMPHOCYTE # 1.3 TH/MM3 (1.0-4.8); MEAN CORPUSCULAR HEMOGLOBIN 32.9 PG (27.0-34.0); MEAN CORPUSCULAR HGB CONC 34.3 % (32.0-36.0); MEAN PLATELET VOLUME 7.6 FL (7.0-11.0); MONO % 8.6 % (0.0-8.0); MONOCYTE # 1.3 TH/MM3 (0-0.9); NEUT % 82.6 % (16.0-70.0); PLATELET COUNT 155 TH/MM3 (150-450); RED BLOOD COUNT 4.25 MIL/MM3 (4.00-5.30); RED CELL DISTRIBUTION WIDTH 14.9 % (11.6-17.2); WHITE BLOOD COUNT 14.8 TH/MM3 (4.0-11.0)
[2017-09-04 05:34] LABS: ALBUMIN 2.1 GM/DL (3.4-5.0); ALKALINE PHOSPHATASE 53 U/L (45-117); ALT (GPT) 19 U/L (10-53); AST (GOT) 17 U/L (15-37); BLOOD UREA NITROGEN 26 MG/DL (7-18); CHLORIDE 110 MEQ/L (98-107); GLOMERULAR FILTRATION RATE 43 ML/MIN (>89); GLUCOSE,RANDOM 156 MG/DL (74-106); SODIUM (NA) 138 MEQ/L (136-145); TOTAL BILIRUBIN ADULT 1.5 MG/DL (0.2-1.0); TOTAL PROTEIN 4.9 GM/DL (6.4-8.2)
[2017-09-04] MEDS: PIPERACIL-TAZO 2.25 GM PREMIX 50 ML IV SCH (08:19)
[2017-09-04] MEDS: DOCUSATE SODIUM 50 MG/SENNA 8.6 MG TAB PO SCH ×2 (08:19→21:00)
[2017-09-04] MEDS: SODIUM CHLORIDE 0.9% FLUSH 10 ML FLUSH IV FLUSH SCH ×2 (08:19→21:00)
[2017-09-04] MEDS ORDERED: PNEUMOCOCCAL POLYVALENT INJ 25 MCG/0.5 ML SYR IM ONE (10:00)
--- NOTE | 2017-09-04 10:36 | PD.CONS ---
HPI History of Present Illness This is a 82 year old female with past medical history of CHF, chronic UTI, arthritis, HTN, GERD who presents to [facility] with complaints of diarrhea for the past week. The patient states that she developed diarrhea last Tuesday and the diarrhea has been constant. The patient complains of diffuse abdominal pain, constant, nonradiating, in lower abdomen. The patient also states she has had decreased appetite and decreased oral intake. She has associated nausea, denies hematochezia or melena or vomiting, denies fever or chills. The patient states she has been seen by Dr. aWlls who gave her an antibiotic and Imodium, but the diarrhea continued. T The patient denies any recent travel, sick contacts or history of C. difficile or similar history. States colonoscopy was yrs ago and that showed polyps. CT done and that showed colitis. (John Dockery) PFSH Past Medical History 1. Hypertension 2. GERD 3. Chronic UTI. 3. Hyperlipidemia. 4. Depression. 5. Osteoporosis. 6. Also arthritis. 7. Breast cancer status post mastectomy. 8. CHF Past Surgical History 1. Mastectomy. 2. AICD. 3. Cardiac catheterization. 4. Right total hip arthroplasty. 5. Dupuytren's release in both hands. (John Dockery) Coded Allergies: codeine (Unverified Allergy, Severe, Nausea/Vomiting, 01/05/17) ciprofloxacin (Verified Allergy, Intermediate, Rash, 09/03/17) Rash with itching when given intravenously Medications Current Medications Medications (Trade) Dose Ordered Sig/Dianne Route Start Time Stop Time Status Last Admin Sodium Chloride 1,000 ml @ 100 mls/hr Q10H IV 09/03/17 15:32 09/04/17 04:52 (NS Flush) 2 ml UNSCH PRN IV FLUSH 09/03/17 15:45 (NS Flush) 2 ml BID IV FLUSH 09/03/17 21:00 (Tylenol) 650 mg Q4H PRN PO 09/03/17 15:45 (Zofran Inj) 4 mg Q6H PRN IVP 09/03/17 15:45 09/04/17 01:56 (Lovenox Inj) 40 mg Q24H SQ 09/03/17 17:00 09/03/17 19:11 (Narcan Inj) 0.4 mg UNSCH PRN IV PUSH 09/03/17 15:45 (Allison-Colace) 1 tab BID PO 09/03/17 21:00 (Milk Of Magnesia Liq) 30 ml Q12H PRN PO 09/03/17 15:45 (Senokot) 17.2 mg Q12H PRN PO 09/03/17 15:45 (Dulcolax Supp) 10 mg DAILY PRN RECTAL 09/03/17 15:45 (Lactulose Liq) 30 ml DAILY PRN PO 09/03/17 15:45 Piperacillin Sod/ Tazobactam Sod 50 ml @ 100 mls/hr Q8H IV 09/04/17 00:00 09/04/17 08:19 Family History Patient's father at 89 years old. Patient's mother of unknown causes. Social History Patient denies smoking, denies alcohol or illegal drug use. (John Dockery) Review of Systems Constitutional: COMPLAINS OF: Change in appetite, DENIES: Fatigue, Fever, Chills Endocrine: DENIES: Polyuria Eyes: DENIES: Double Vision Ears, nose, mouth, throat: DENIES: Hoarseness Respiratory: DENIES: Shortness of breath Cardiovascular: DENIES: Lower Extremity Edema Gastrointestinal: COMPLAINS OF: Abdominal pain, Diarrhea, Nausea, DENIES: Black stools, Bloody stools, Constipation, Vomiting, Difficulty Swallowing, Anorexia, Odynophagia, Swelling of Abdomen, Heartburn, Hematemesis Genitourinary: DENIES: Hematuria Musculoskeletal: DENIES: Neck pain Integumentary: DENIES: Jaundice Hematologic/lymphatic: DENIES: Bruising Immunologic/allergic: DENIES: Eczema Neurologic: DENIES: Abnormal gait Psychiatric: DENIES: Anxiety (John Dockery) GI Exam Vitals I&O Vital Signs Date Time Temp Pulse Resp B/P (MAP) Pulse Ox O2 Delivery O2 Flow Rate FiO2 09/04/17 08:00 100 09/04/17 08:00 98.8 100 20 115/59 (77) 92 09/04/17 04:09 97 09/04/17 04:00 99.9 90 20 113/58 (76) 94 09/04/17 00:10 90 09/03/17 23:32 99.5 93 16 127/57 (80) 93 09/03/17 20:16 96 Nasal Cannula 2.00 09/03/17 20:06 84 09/03/17 20:00 99.2 82 20 119/56 (77) 97 09/03/17 20:00 Nasal Cannula 2.00 09/03/17 17:33 Nasal Cannula 2.00 09/03/17 17:12 105/68 (80) 96 Nasal Cannula 2.00 09/03/17 17:00 98.5 81 20 125/53 (77) 98 09/03/17 13:07 78 19 103/49 (67) 95 Nasal Cannula 2.00 09/03/17 13:04 98.2 79 19 103/49 (67) I/O 09/03/17 09/03/17 09/03/17 09/04/17 09/04/17 09/04/17 07:00 15:00 23:00 07:00 15:00 23:00 Output Total 5 ml Balance -5 ml Output Urine Total 3 ml Stool Total 2 ml Imaging Last Impressions Abdomen/Pelvis CT 09/03/17 0000 Signed Impressions: Service Date/Time: Sunday, September 03, 2017 14:24 - CONCLUSION: Scan appearance consistent with colitis Ridge Chopra MD Laboratory Test 09/03/17 13:15 09/03/17 13:50 09/04/17 04:40 White Blood Count 13.9 TH/MM3 14.8 TH/MM3 Red Blood Count 4.61 MIL/MM3 4.25 MIL/MM3 Hemoglobin 15.3 GM/DL 14.0 GM/DL Hematocrit 44.0 % 40.8 % Mean Corpuscular Volume 95.5 FL 96.0 FL Mean Corpuscular Hemoglobin 33.2 PG 32.9 PG Mean Corpuscular Hemoglobin Concent 34.8 % 34.3 % Red Cell Distribution Width 14.8 % 14.9 % Platelet Count 166 TH/MM3 155 TH/MM3 Mean Platelet Volume 7.9 FL 7.6 FL Neutrophils (%) (Auto) 75.0 % 82.6 % Lymphocytes (%) (Auto) 13.3 % 8.7 % Monocytes (%) (Auto) 11.4 % 8.6 % Eosinophils (%) (Auto) 0.2 % 0.0 % Basophils (%) (Auto) 0.1 % 0.1 % Neutrophils # (Auto) 10.4 TH/MM3 12.3 TH/MM3 Lymphocytes # (Auto) 1.8 TH/MM3 1.3 TH/MM3 Monocytes # (Auto) 1.6 TH/MM3 1.3 TH/MM3 Eosinophils # (Auto) 0.0 TH/MM3 0.0 TH/MM3 Basophils # (Auto) 0.0 TH/MM3 0.0 TH/MM3 CBC Comment AUTO DIFF DIFF FINAL Differential Total Cells Counted 100 Neutrophils % (Manual) 37 % Band Neutrophils % 36 % Lymphocytes % 12 % Monocytes % 15 % Neutrophils # (Manual) 10.1 TH/MM3 Differential Comment FINAL DIFF MANUAL Toxic Granulation 1+ Toxic Vacuolation PRESENT Platelet Estimate NORMAL Platelet Morphology Comment NORMAL Blood Urea Nitrogen 34 MG/DL 26 MG/DL Creatinine 1.36 MG/DL 1.20 MG/DL Random Glucose 107 MG/DL 156 MG/DL Total Protein 6.2 GM/DL 4.9 GM/DL Albumin 2.9 GM/DL 2.1 GM/DL Calcium Level 9.3 MG/DL 8.0 MG/DL Alkaline Phosphatase 59 U/L 53 U/L Aspartate Amino Transf (AST/SGOT) 18 U/L 17 U/L Alanine Aminotransferase (ALT/SGPT) 23 U/L 19 U/L Total Bilirubin 1.1 MG/DL 1.5 MG/DL Sodium Level 135 MEQ/L 138 MEQ/L Potassium Level 4.0 MEQ/L 3.6 MEQ/L Chloride Level 103 MEQ/L 110 MEQ/L Carbon Dioxide Level 22.2 MEQ/L 21.0 MEQ/L Anion Gap 10 MEQ/L 7 MEQ/L Estimat Glomerular Filtration Rate 37 ML/MIN 43 ML/MIN Lactic Acid Level 1.0 mmol/L Lipase 357 U/L Urine Color YELLOW Urine Turbidity HAZY Urine pH 5.5 Urine Specific [place] 1.023 Urine Protein TRACE mg/dL Urine Glucose (UA) NEG mg/dL Urine Ketones NEG mg/dL Urine Occult Blood NEG Urine Nitrite POS Urine Bilirubin NEG Urine Urobilinogen LESS THAN 2.0 MG/DL Urine Leukocyte Esterase LARGE Urine RBC 3 /hpf Urine WBC 29 /hpf Urine WBC Clumps FEW Urine Squamous Epithelial Cells 4 /hpf Urine Transitional Epithelial Cells <1 /hpf Urine Bacteria MANY /hpf Urine Hyaline Casts 11 /lpf Urine Mucus MOD /lpf Microscopic Urinalysis Comment CATH-CULTURE IND Date/Time Source Procedure Growth Status 09/03/17 14:45 Blood Peripheral Aerobic Blood Culture Pending Received 09/03/17 14:45 Blood Peripheral Anaerobic Blood Culture Pending Received 09/03/17 13:50 Urine Catheterized Urine Urine Culture Pending Received Physical Examination HEENT: normocephalic; atraumatic; no jaundice. CHEST: Chest is clear to auscultation and percussion. CARDIAC: Regular rate and rhythm with no murmur gallop or rubs. ABDOMEN: Soft, nondistended, lower abd tenderness; no hepatosplenomegaly; bowel sounds are present in all four quadrants. EXTREMITIES: No clubbing, cyanosis, or edema. SKIN: some ecchymosis COMMUNICATIONS PROFESSOR: No focal deficits; alert and oriented times three. (John Dockery) Assessment and Plan Plan - Colitis- Diarrhea for one week, CT showed colitis, stools ordered but pt hasn' t had a BM, she is having lower abd pain and nausea No previous hx of this, colonoscopy yrs ago, on Cipro and Flagyl - Leukocytosis- secondary to above, on Cipro and Flagyl - Chronic UTI- on abx - HTN per attending Plan: - Clear liquids - Colonoscopy in - [facility] today - NPO mn - Consents - Cont. Cipro and Flagyl - Await stools studies - Patient seen and examined by Dr. Sage and myself and this note is written on his behalf. (John Dockery) Plan Patient was seen and examined, agree with above note, significant colitis on CT scan, we will plan on doing colonoscopy, patient is worried about cancer since she has a family history her mom had colon cancer, further plan depends on the finding (Parker Sage MD) John Dockery Sep 04, 2017 10:36 Parker Sage MD Sep 04, 2017 15:12
--- NOTE | 2017-09-04 11:28 | HHI.PR ---
Subjective Remarks Patient reports she is feeling okay. Still having some diffuse abdominal discomfort. Objective Vitals Vital Signs Date Time Temp Pulse Resp B/P (MAP) Pulse Ox O2 Delivery O2 Flow Rate FiO2 09/04/17 11:00 Nasal Cannula 2.00 09/04/17 09:00 Nasal Cannula 2.00 09/04/17 08:00 100 09/04/17 08:00 98.8 100 20 115/59 (77) 92 09/04/17 04:09 97 09/04/17 04:00 99.9 90 20 113/58 (76) 94 09/04/17 00:10 90 09/03/17 23:32 99.5 93 16 127/57 (80) 93 09/03/17 20:16 96 Nasal Cannula 2.00 09/03/17 20:06 84 09/03/17 20:00 99.2 82 20 119/56 (77) 97 09/03/17 20:00 Nasal Cannula 2.00 09/03/17 17:33 Nasal Cannula 2.00 09/03/17 17:12 105/68 (80) 96 Nasal Cannula 2.00 09/03/17 17:00 98.5 81 20 125/53 (77) 98 09/03/17 13:07 78 19 103/49 (67) 95 Nasal Cannula 2.00 09/03/17 13:04 98.2 79 19 103/49 (67) I/O 09/03/17 09/03/17 09/03/17 09/04/17 09/04/17 09/04/17 07:00 15:00 23:00 07:00 15:00 23:00 Output Total 5 ml Balance -5 ml Output Urine Total 3 ml Stool Total 2 ml Result Diagram: 09/04/17 0440 09/04/17 0440 Imaging Last Impressions Abdomen/Pelvis CT 09/03/17 0000 Signed Impressions: Service Date/Time: Sunday, September 03, 2017 14:24 - CONCLUSION: Scan appearance consistent with colitis Ridge Chopra MD Objective Remarks GENERAL: This is a well-nourished, well-developed patient, in no apparent distress. CARDIOVASCULAR: Normal rate and regular rhythm without murmurs, gallops, or rubs. RESPIRATORY: Good respiratory efforts. Breath sounds equal and clear to auscultation bilaterally. GASTROINTESTINAL: Abdomen soft, diffuse mild tenderness to palpation. MUSCULOSKELETAL: Extremities without cyanosis, or edema. NEURO: Alert & Oriented x4 to person, place, time, situation. Moves all ext x4 PSYCH: Appropriate mood and affect. A/P Problem List: (1) Colitis ICD Code: K52.9 - Noninfective gastroenteritis and colitis, unspecified Status: Acute Plan: Etiology unclear. C. difficile PCR pending. Patient has been evaluated by GI Continue IV Zosyn. GI planning for colonoscopy tomorrow. Clear liquid diet as tolerated. (2) UTI (urinary tract infection) ICD Code: N39.0 - Urinary tract infection, site not specified Status: Acute Plan: On Zosyn. Follow urine cultures. (3) INA (acute kidney injury) ICD Code: N17.9 - Acute kidney failure, unspecified Status: Acute Plan: As per review of records the patient has a baseline creatinine of 0.7- 0.8. Likely due to prerenal azotemia and dehydration from diarrhea. Improving. Continue IV hydration. (4) Bandemia ICD Code: D72.825 - Bandemia Status: Acute (5) AICD (automatic cardioverter/defibrillator) present ICD Code: Z95.810 - AICD (automatic cardioverter/defibrillator) present Status: Acute (6) Diarrhea ICD Code: R19.7 - Diarrhea, unspecified Problem Qualifiers (1) UTI (urinary tract infection): Qualified Codes: N30.00 - Acute cystitis without hematuria Trinity Topete MD Sep 04, 2017 11:28
[2017-09-04] MEDS ORDERED: PEG (High)/E-LYTE SOLN 4000 ML BTL PO ONE (16:00)
[2017-09-04] MEDS: TOPIRAMATE 25 MG TAB PO SCH (16:14)
[2017-09-04] MEDS: ENOXAPARIN SODIUM 40 MG/0.4 ML SYRINGE SQ SCH (16:14)
[2017-09-04] MEDS: VANCOMYCIN 500 MG VIAL (FOR ORAL USE ONLY) PO SCH ×3 (16:14→21:18)
[2017-09-04] MEDS: METOPROLOL TARTRATE 50 MG TAB PO SCH (16:14)
[2017-09-04] MEDS: LORazepam 0.5 MG TAB PO PRN (16:15)
[2017-09-04] MEDS: ATORVASTATIN 20 MG TAB PO SCH (21:18)
[2017-09-05] VITALS (7 sets, daily range): BP systolic 102–118; BP diastolic 53–56; PULSE 69–95; RESP 18–20; TEMP 97.7–98.9; O2SAT 94–97
[2017-09-05] MEDS: SODIUM CHLOR 0.9% 1000 ML INJ 1,000 ML IV SCH ×2 (01:38→07:32)
[2017-09-05] MEDS: SODIUM CHLORIDE 0.9% FLUSH 10 ML FLUSH IV FLUSH SCH ×2 (09:00→21:07)
[2017-09-05] MEDS: DOCUSATE SODIUM 50 MG/SENNA 8.6 MG TAB PO SCH ×2 (09:00→21:00)
[2017-09-05] MEDS: VANCOMYCIN 500 MG VIAL (FOR ORAL USE ONLY) PO SCH ×4 (09:55→21:06)
[2017-09-05] MEDS: METOPROLOL TARTRATE 50 MG TAB PO SCH (09:55)
[2017-09-05] MEDS: TOPIRAMATE 25 MG TAB PO SCH (09:55)
[2017-09-05] MEDS: CITALOPRAM HYDROBROMIDE 40 MG TAB PO SCH (09:56)
[2017-09-05] MEDS: PANTOPRAZOLE SOD 20 MG DELAYED RELEASE TAB PO SCH (09:56)
[2017-09-05 10:15] LABS: HEMATOCRIT 40.8 % (35.0-46.0); HEMOGLOBIN 13.6 GM/DL (11.6-15.3); MEAN CELL VOLUME 96.9 FL (80.0-100.0); MEAN CORPUSCULAR HEMOGLOBIN 32.4 PG (27.0-34.0); MEAN CORPUSCULAR HGB CONC 33.4 % (32.0-36.0); MEAN PLATELET VOLUME 8.1 FL (7.0-11.0); PLATELET COUNT 173 TH/MM3 (150-450); RED BLOOD COUNT 4.21 MIL/MM3 (4.00-5.30); RED CELL DISTRIBUTION WIDTH 15.2 % (11.6-17.2); WHITE BLOOD COUNT 21.1 TH/MM3 (4.0-11.0)
[2017-09-05 10:50] LABS: BICARBONATE 14.8 MEQ/L (21.0-32.0); CALCIUM 6.3 MG/DL (8.5-10.1); CREATININE 1.29 MG/DL (0.50-1.00)
[2017-09-05 11:04] LABS: CALCIUM-PROTEIN CORRECTED 8.2 MG/DL (8.5-10.1); TOTAL PROTEIN 3.5 GM/DL (6.4-8.2)
--- NOTE | 2017-09-05 11:09 | HHI.PR ---
Subjective Remarks Patient still reports some abdominal discomfort. No nausea or vomiting. Still having diarrhea. Objective Vitals Vital Signs Date Time Temp Pulse Resp B/P (MAP) Pulse Ox O2 Delivery O2 Flow Rate FiO2 09/05/17 08:00 97.9 95 20 102/54 (70) 95 09/05/17 04:00 76 09/05/17 04:00 98.8 79 20 115/56 (75) 94 09/05/17 00:00 98.9 72 20 113/55 (74) 94 09/04/17 23:50 70 09/04/17 20:15 Nasal Cannula 2.00 09/04/17 20:00 98.9 69 22 100/54 (69) 93 09/04/17 19:55 69 09/04/17 18:51 Nasal Cannula 2.00 09/04/17 16:00 108 09/04/17 16:00 98.5 92 20 120/60 (80) 93 09/04/17 15:00 Nasal Cannula 2.00 09/04/17 12:00 94 09/04/17 12:00 99.0 98 20 113/54 (73) 92 I/O 09/04/17 09/04/17 09/04/17 09/05/17 09/05/17 09/05/17 07:00 15:00 23:00 07:00 15:00 23:00 Intake Total 1050 ml 360 ml 120 ml Output Total 5 ml Balance 1045 ml 360 ml 120 ml Intake Oral 360 ml 120 ml IV Total 1050 ml Output Urine Total 3 ml Stool Total 2 ml # Voids 3 3 # Bowel Movements 3 2 Result Diagram: 09/05/1746 09/05/17 0846 Objective Remarks GENERAL: This is a well-nourished, well-developed patient, in no apparent distress. CARDIOVASCULAR: Normal rate and regular rhythm without murmurs, gallops, or rubs. RESPIRATORY: Good respiratory efforts. Breath sounds equal and clear to auscultation bilaterally. GASTROINTESTINAL: Abdomen soft, diffuse mild tenderness to palpation. Hyperactive bowel sounds MUSCULOSKELETAL: Extremities without cyanosis, or edema. NEURO: Alert & Oriented x4 to person, place, time, situation. Moves all ext x4 PSYCH: Appropriate mood and affect. A/P Problem List: (1) C. difficile colitis ICD Code: A04.72 - Enterocolitis due to Clostridium difficile, not specified as recurrent Plan: Continue vancomycin orally. Increase dose to 250 mg 4 times daily GI following Continue supportive care with IV fluid. Diet as tolerated. (2) UTI (urinary tract infection) ICD Code: N39.0 - Urinary tract infection, site not specified Status: Acute Plan: Urine culture grew E. coli Give Rocephin for 3 days. (3) INA (acute kidney injury) ICD Code: N17.9 - Acute kidney failure, unspecified Status: Acute Plan: As per review of records the patient has a baseline creatinine of 0.7- 0.8. Likely due to prerenal azotemia and dehydration from diarrhea. Slight bump in creatinine today. Continue IV hydration. (4) Bandemia ICD Code: D72.825 - Bandemia Status: Acute (5) AICD (automatic cardioverter/defibrillator) present ICD Code: Z95.810 - AICD (automatic cardioverter/defibrillator) present Status: Acute (6) Diarrhea ICD Code: R19.7 - Diarrhea, unspecified Problem Qualifiers (1) UTI (urinary tract infection): Qualified Codes: N30.00 - Acute cystitis without hematuria Trinity Topete MD Sep 05, 2017 11:09
--- NOTE | 2017-09-05 11:13 | CF ---
cc: Babar Marion MD DATE: 09/05/2017 1. Take out the marked ST elevation, consider anterior injury. 2. Take out acute myocardial infarction. No change compared to the prior study of 03/23/2013. Babar Marion MD DLW/ALEXIA/rr , 09:35 AM , 10:02 AM
--- NOTE | 2017-09-05 11:50 | HHI.GIFU ---
Subjective Remarks Pt resting in bed. c/o abd pain. still with loose stool. (Breanna Musa) Objective Vitals I&O Vital Signs Date Time Temp Pulse Resp B/P (MAP) Pulse Ox O2 Delivery O2 Flow Rate FiO2 09/05/17 08:00 97.9 95 20 102/54 (70) 95 09/05/17 04:00 76 09/05/17 04:00 98.8 79 20 115/56 (75) 94 09/05/17 00:00 98.9 72 20 113/55 (74) 94 09/04/17 23:50 70 09/04/17 20:15 Nasal Cannula 2.00 09/04/17 20:00 98.9 69 22 100/54 (69) 93 09/04/17 19:55 69 09/04/17 18:51 Nasal Cannula 2.00 09/04/17 16:00 108 09/04/17 16:00 98.5 92 20 120/60 (80) 93 09/04/17 15:00 Nasal Cannula 2.00 09/04/17 12:00 94 09/04/17 12:00 99.0 98 20 113/54 (73) 92 I/O 09/04/17 09/04/17 09/04/17 09/05/17 09/05/17 09/05/17 07:00 15:00 23:00 07:00 15:00 23:00 Intake Total 1050 ml 360 ml 120 ml Output Total 5 ml Balance 1045 ml 360 ml 120 ml Intake Oral 360 ml 120 ml IV Total 1050 ml Output Urine Total 3 ml Stool Total 2 ml # Voids 3 3 # Bowel Movements 3 2 Laboratory Laboratory Tests Test 09/05/17 08:46 White Blood Count 21.1 Red Blood Count 4.21 Hemoglobin 13.6 Hematocrit 40.8 Mean Corpuscular Volume 96.9 Mean Corpuscular Hemoglobin 32.4 Mean Corpuscular Hemoglobin Concent 33.4 Red Cell Distribution Width 15.2 Platelet Count 173 Mean Platelet Volume 8.1 Blood Urea Nitrogen 31 Creatinine 1.29 Random Glucose 102 Total Protein 3.5 Calcium Level 6.3 Sodium Level 142 Potassium Level 3.0 Chloride Level 117 Carbon Dioxide Level 14.8 Anion Gap 10 Estimat Glomerular Filtration Rate 40 Protein Corrected Calcium 8.2 Date/Time Source Procedure Growth Status 09/03/17 14:45 Blood Peripheral Aerobic Blood Culture - Preliminary NO GROWTH IN 2 DAYS Resulted 09/03/17 14:45 Blood Peripheral Anaerobic Blood Culture - Preliminary NO GROWTH IN 2 DAYS Resulted 09/04/17 10:30 Stool Stool Pending Received 09/03/17 13:50 Urine Catheterized Urine Urine Culture - Final Escherichia Coli Complete Imaging Last Impressions Abdomen/Pelvis CT 09/03/17 0000 Signed Impressions: Service Date/Time: Sunday, September 03, 2017 14:24 - CONCLUSION: Scan appearance consistent with colitis Ridge Chopra MD Physical Exam HEENT: PERRL; normocephalic; atraumatic; no jaundice. CHEST: even, unlabored CARDIAC: RRR ABDOMEN: Soft, mildly distended, TTP diffusely; no hepatosplenomegaly; bowel sounds are present in all four quadrants. EXTREMITIES: No clubbing, cyanosis, or edema. SKIN: Normal; no rash; no jaundice. DELIVERY ANALYST: No focal deficits; alert and oriented times three. (Breanna Musa) Assessment and Plan Plan - Colitis- Diarrhea for one week, CT showed colitis, stools ordered but pt hasn' t had a BM, she is having lower abd pain and nausea No previous hx of this, colonoscopy yrs ago, on Cipro and Flagyl - Leukocytosis- secondary to above, on Cipro and Flagyl - Chronic UTI- on abx - HTN per attending 09/05/17 WBC trending up. + c diff now on PO vanc. + abd pain, diarrhea today. Plan: - Clear liquids - cont PO vanc - suppportive care pt seen by myself and Dr Campbell and this note is on her behalf (Breanna Musa) Physician Comments seen, examined agree with above if not better consider Dificid, ID consult (Talya Campbell MD) Breanna Musa Sep 05, 2017 11:50 Talya Campbell MD Sep 05, 2017 16:21
[2017-09-05] MEDS: cefTRIAXone INJ 1,000 MG in SODIUM CHLORIDE 0.9% INJ 100 ML IV SCH (17:03)
--- NOTE | 2017-09-05 17:24 | EKG ---
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
[2017-09-05] MEDS: POTASSIUM CHLOR 20 MEQ PREMIX 100 ML IV SCH ×2 (19:06→22:00)
[2017-09-05] MEDS: ATORVASTATIN 20 MG TAB PO SCH (21:05)
[2017-09-06] VITALS (10 sets, daily range): BP systolic 110–133; BP diastolic 53–63; PULSE 68–101; RESP 18–21; TEMP 97.4–98; O2SAT 91–95
[2017-09-06] MEDS: LORazepam 0.5 MG TAB PO PRN ×3 (01:15→20:12)
[2017-09-06] MEDS: 1/2 NS + KCL 20 MEQ INJ 1,000 ML IV SCH ×3 (01:16→20:14)
[2017-09-06 07:39] LABS: HEMATOCRIT 46.4 % (35.0-46.0); HEMOGLOBIN 15.7 GM/DL (11.6-15.3); MEAN CELL VOLUME 95.5 FL (80.0-100.0); MEAN CORPUSCULAR HEMOGLOBIN 32.3 PG (27.0-34.0); MEAN CORPUSCULAR HGB CONC 33.8 % (32.0-36.0); MEAN PLATELET VOLUME 7.5 FL (7.0-11.0); PLATELET COUNT 228 TH/MM3 (150-450); RED BLOOD COUNT 4.87 MIL/MM3 (4.00-5.30); RED CELL DISTRIBUTION WIDTH 15.4 % (11.6-17.2); WHITE BLOOD COUNT 18.3 TH/MM3 (4.0-11.0)
[2017-09-06 08:14] LABS: BICARBONATE 18.9 MEQ/L (21.0-32.0); CALCIUM 7.6 MG/DL (8.5-10.1); CREATININE 1.17 MG/DL (0.50-1.00); MAGNESIUM 2.2 MG/DL (1.5-2.5)
[2017-09-06] MEDS: DOCUSATE SODIUM 50 MG/SENNA 8.6 MG TAB PO SCH ×2 (09:00→20:12)
[2017-09-06] MEDS: SODIUM CHLORIDE 0.9% FLUSH 10 ML FLUSH IV FLUSH SCH ×2 (09:00→20:13)
[2017-09-06] MEDS: CITALOPRAM HYDROBROMIDE 40 MG TAB PO SCH (09:25)
[2017-09-06] MEDS: VANCOMYCIN 500 MG VIAL (FOR ORAL USE ONLY) PO SCH ×4 (09:25→20:14)
[2017-09-06] MEDS: TOPIRAMATE 25 MG TAB PO SCH (09:25)
[2017-09-06] MEDS: PANTOPRAZOLE SOD 20 MG DELAYED RELEASE TAB PO SCH (09:25)
[2017-09-06] MEDS: METOPROLOL TARTRATE 50 MG TAB PO SCH (09:25)
[2017-09-06] MEDS: traMADol HCL 50 MG TAB PO PRN (09:40)
--- NOTE | 2017-09-06 14:09 | HHI.PR ---
Subjective Remarks Patient reports she is feeling better. Abdominal pain much improved. Tolerating some of her diet. Objective Vitals Vital Signs Date Time Temp Pulse Resp B/P (MAP) Pulse Ox O2 Delivery O2 Flow Rate FiO2 09/06/17 07:00 Nasal Cannula 2.00 09/06/17 04:00 97.8 92 18 133/63 (86) 95 09/06/17 03:45 92 09/06/17 00:04 84 09/06/17 00:00 98.0 90 18 133/63 (86) 94 09/06/17 00:00 Nasal Cannula 2.00 09/05/17 20:00 98.2 72 18 102/53 (69) 97 09/05/17 20:00 Nasal Cannula 2.00 09/05/17 19:46 77 09/05/17 16:00 69 09/05/17 16:00 97.7 70 20 118/55 (76) 97 I/O 09/05/17 09/05/17 09/05/17 09/06/17 09/06/17 09/06/17 07:00 15:00 23:00 07:00 15:00 23:00 Intake Total 120 ml 270 ml Balance 120 ml 270 ml Intake Oral 120 ml 270 ml # Voids 3 0 6 # Bowel Movements 2 2 3 Result Diagram: 09/06/1771509/06/17715 Objective Remarks GENERAL: This is a well-nourished, well-developed patient, in no apparent distress. CARDIOVASCULAR: Normal rate and regular rhythm without murmurs, gallops, or rubs. RESPIRATORY: Good respiratory efforts. Breath sounds equal and clear to auscultation bilaterally. GASTROINTESTINAL: Abdomen soft, diffuse mild tenderness to palpation. Hyperactive bowel sounds MUSCULOSKELETAL: Extremities without cyanosis, or edema. NEURO: Alert & Oriented x4 to person, place, time, situation. Moves all ext x4 PSYCH: Appropriate mood and affect. A/P Problem List: (1) C. difficile colitis ICD Code: A04.72 - Enterocolitis due to Clostridium difficile, not specified as recurrent Plan: Slightly improved but still having significant diarrhea. Continue vancomycin orally. 250 mg 4 times daily GI following Continue supportive care with IV fluid. Diet as tolerated. (2) UTI (urinary tract infection) ICD Code: N39.0 - Urinary tract infection, site not specified Status: Acute Plan: Urine culture grew E. coli Give Rocephin for 3 days. (3) INA (acute kidney injury) ICD Code: N17.9 - Acute kidney failure, unspecified Status: Acute Plan: As per review of records the patient has a baseline creatinine of 0.7- 0.8. Likely due to prerenal azotemia and dehydration from diarrhea. Improving. Continue IV hydration. (4) Bandemia ICD Code: D72.825 - Bandemia Status: Acute (5) AICD (automatic cardioverter/defibrillator) present ICD Code: Z95.810 - AICD (automatic cardioverter/defibrillator) present Status: Acute (6) Diarrhea ICD Code: R19.7 - Diarrhea, unspecified Problem Qualifiers (1) UTI (urinary tract infection): Qualified Codes: N30.00 - Acute cystitis without hematuria Trinity Topete MD Sep 06, 2017 14:09
[2017-09-06] MEDS: cefTRIAXone INJ 1,000 MG in SODIUM CHLORIDE 0.9% INJ 100 ML IV SCH (17:00)
[2017-09-06] MEDS: ATORVASTATIN 20 MG TAB PO SCH (20:12)
[2017-09-07] VITALS (7 sets, daily range): BP systolic 129–144; BP diastolic 56–64; PULSE 69–91; RESP 17–20; TEMP 97.2–98.2; O2SAT 94–96
[2017-09-07 05:15] LABS: HEMATOCRIT 44.5 % (35.0-46.0); MEAN CELL VOLUME 96.4 FL (80.0-100.0); MEAN CORPUSCULAR HEMOGLOBIN 32.6 PG (27.0-34.0); MEAN CORPUSCULAR HGB CONC 33.8 % (32.0-36.0); MEAN PLATELET VOLUME 7.5 FL (7.0-11.0); PLATELET COUNT 200 TH/MM3 (150-450); RED BLOOD COUNT 4.62 MIL/MM3 (4.00-5.30); RED CELL DISTRIBUTION WIDTH 15.6 % (11.6-17.2); WHITE BLOOD COUNT 13.1 TH/MM3 (4.0-11.0)
[2017-09-07 05:50] LABS: CALCIUM 7.6 MG/DL (8.5-10.1); CREATININE 0.87 MG/DL (0.50-1.00)
[2017-09-07] MEDS: SODIUM CHLORIDE 0.9% FLUSH 10 ML FLUSH IV FLUSH SCH ×2 (09:00→20:27)
[2017-09-07] MEDS: DOCUSATE SODIUM 50 MG/SENNA 8.6 MG TAB PO SCH ×2 (09:00→20:27)
[2017-09-07] MEDS: VANCOMYCIN 500 MG VIAL (FOR ORAL USE ONLY) PO SCH ×4 (10:00→20:27)
[2017-09-07] MEDS: CITALOPRAM HYDROBROMIDE 40 MG TAB PO SCH (10:02)
[2017-09-07] MEDS: TOPIRAMATE 25 MG TAB PO SCH (10:02)
[2017-09-07] MEDS: METOPROLOL TARTRATE 50 MG TAB PO SCH (10:02)
[2017-09-07] MEDS: PANTOPRAZOLE SOD 20 MG DELAYED RELEASE TAB PO SCH (10:02)
[2017-09-07] MEDS: LORazepam 0.5 MG TAB PO PRN ×2 (10:06→20:36)
[2017-09-07] MEDS: SODIUM CHLOR 0.9% 1000 ML INJ 1,000 ML IV SCH ×2 (11:30→20:38)
--- NOTE | 2017-09-07 13:42 | HHI.PR ---
Subjective Remarks Still having diarrhea but feeling slightly better. Eat about half of lunch. Objective Vitals Vital Signs Date Time Temp Pulse Resp B/P (MAP) Pulse Ox O2 Delivery O2 Flow Rate FiO2 09/07/17 12:00 69 09/07/17 08:00 86 09/07/17 08:00 98.0 91 19 135/59 (84) 94 09/07/17 07:00 Nasal Cannula 2.00 09/07/17 06:30 97.4 85 18 138/59 (85) 94 09/07/17 03:19 87 09/07/17 00:00 98.1 73 18 144/64 (90) 96 09/06/17 23:42 69 09/06/17 20:00 Nasal Cannula 2.00 09/06/17 20:00 97.6 68 21 116/58 (77) 94 09/06/17 19:46 69 09/06/17 16:00 97.6 69 20 116/60 (78) 91 09/06/17 16:00 69 I/O 09/06/17 09/06/17 09/06/17 09/07/17 09/07/17 09/07/17 07:00 15:00 23:00 07:00 15:00 23:00 Intake Total 690 ml 1000 ml Balance 690 ml 1000 ml Intake Oral 690 ml IV Total 1000 ml # Voids 6 2 3 # Bowel Movements 3 3 3 Result Diagram: 09/07/1742909/07/17429 Objective Remarks GENERAL: This is a well-nourished, well-developed patient, in no apparent distress. CARDIOVASCULAR: Normal rate and regular rhythm without murmurs, gallops, or rubs. RESPIRATORY: Good respiratory efforts. Breath sounds equal and clear to auscultation bilaterally. GASTROINTESTINAL: Abdomen soft, diffuse mild tenderness to palpation. Hyperactive bowel sounds MUSCULOSKELETAL: Extremities without cyanosis, or edema. NEURO: Alert & Oriented x4 to person, place, time, situation. Moves all ext x4 PSYCH: Appropriate mood and affect. A/P Problem List: (1) C. difficile colitis ICD Code: A04.72 - Enterocolitis due to Clostridium difficile, not specified as recurrent Plan: Slightly improved but still having significant diarrhea. Continue vancomycin orally. 250 mg 4 times daily. Some improvement. GI following Continue supportive care with IV fluid. Diet as tolerated. (2) UTI (urinary tract infection) ICD Code: N39.0 - Urinary tract infection, site not specified Status: Acute Plan: Urine culture grew E. coli S/P treatment with Rocephin (3) INA (acute kidney injury) ICD Code: N17.9 - Acute kidney failure, unspecified Status: Acute Plan: As per review of records the patient has a baseline creatinine of 0.7- 0.8. Likely due to prerenal azotemia and dehydration from diarrhea. Improving. Continue IV hydration. (4) Bandemia ICD Code: D72.825 - Bandemia Status: Acute (5) AICD (automatic cardioverter/defibrillator) present ICD Code: Z95.810 - AICD (automatic cardioverter/defibrillator) present Status: Acute (6) Diarrhea ICD Code: R19.7 - Diarrhea, unspecified Problem Qualifiers (1) UTI (urinary tract infection): Qualified Codes: N30.00 - Acute cystitis without hematuria Trinity Topete MD Sep 07, 2017 13:42
--- NOTE | 2017-09-07 14:07 | HHI.GIFU ---
Subjective Remarks Pt says diarrhea somewhat improved. She is eating. twister tender paper on exam. (Breanna Musa) Objective Vitals I&O Vital Signs Date Time Temp Pulse Resp B/P (MAP) Pulse Ox O2 Delivery O2 Flow Rate FiO2 09/07/17 12:00 69 09/07/17 08:00 86 09/07/17 08:00 98.0 91 19 135/59 (84) 94 09/07/17 07:00 Nasal Cannula 2.00 09/07/17 06:30 97.4 85 18 138/59 (85) 94 09/07/17 03:19 87 09/07/17 00:00 98.1 73 18 144/64 (90) 96 09/06/17 23:42 69 09/06/17 20:00 Nasal Cannula 2.00 09/06/17 20:00 97.6 68 21 116/58 (77) 94 09/06/17 19:46 69 09/06/17 16:00 97.6 69 20 116/60 (78) 91 09/06/17 16:00 69 I/O 09/06/17 09/06/17 09/06/17 09/07/17 09/07/17 09/07/17 07:00 15:00 23:00 07:00 15:00 23:00 Intake Total 690 ml 1000 ml Balance 690 ml 1000 ml Intake Oral 690 ml IV Total 1000 ml # Voids 6 2 3 # Bowel Movements 3 3 3 Laboratory Laboratory Tests Test 09/07/17 04:30 White Blood Count 13.1 Red Blood Count 4.62 Hemoglobin 15.0 Hematocrit 44.5 Mean Corpuscular Volume 96.4 Mean Corpuscular Hemoglobin 32.6 Mean Corpuscular Hemoglobin Concent 33.8 Red Cell Distribution Width 15.6 Platelet Count 200 Mean Platelet Volume 7.5 Blood Urea Nitrogen 33 Creatinine 0.87 Random Glucose 143 Calcium Level 7.6 Sodium Level 137 Potassium Level 4.9 Chloride Level 112 Carbon Dioxide Level 17.0 Anion Gap 8 Estimat Glomerular Filtration Rate 63 Date/Time Source Procedure Growth Status 09/03/17 14:45 Blood Peripheral Aerobic Blood Culture - Preliminary NO GROWTH IN 4 DAYS Resulted 09/03/17 14:45 Blood Peripheral Anaerobic Blood Culture - Preliminary NO GROWTH IN 4 DAYS Resulted 09/04/17 10:30 Stool Stool - Final NO ENTERIC PATHOGENS DETECTED BY PCR... Complete 09/03/17 13:50 Urine Catheterized Urine Urine Culture - Final Escherichia Coli Complete Imaging Last Impressions Abdomen/Pelvis CT 09/03/17 0000 Signed Impressions: Service Date/Time: Sunday, September 03, 2017 14:24 - CONCLUSION: Scan appearance consistent with colitis Ridge Chopra MD Physical Exam HEENT: PERRL; normocephalic; atraumatic; no jaundice. CHEST: even, unlabored CARDIAC: RRR ABDOMEN: Soft, mildly distended, lower quadrants TTP; no hepatosplenomegaly; bowel sounds are present in all four quadrants. EXTREMITIES: No clubbing, cyanosis, or edema. SKIN: Normal; no rash; no jaundice. PROOF OPERATOR: No focal deficits; alert and oriented times three. (Breanna Musa) Assessment and Plan Plan - Colitis- Diarrhea for one week, CT showed colitis, stools ordered but pt hasn' t had a BM, she is having lower abd pain and nausea No previous hx of this, colonoscopy yrs ago, on Cipro and Flagyl - Leukocytosis- secondary to above, on Cipro and Flagyl - Chronic UTI- on abx - HTN per attending 09/05/17 WBC trending up. + c diff now on PO vanc. + abd pain, diarrhea today. 09/07/17 diarrhea somewhat improved. WBC trending down. eating today. Plan: - TAHIR - cont PO vanc - suppportive care - if fails to improve or does worsen, consider ID consult and dificid pt seen by myself and Dr Campbell and this note is on her behalf (Breanna Musa) Physician Comments agree with above (Talya Campbell MD) Breanna Musa Sep 07, 2017 14:07 Talya Campbell MD Sep 07, 2017 17:39
[2017-09-07] MEDS: ATORVASTATIN 20 MG TAB PO SCH (20:27)
[2017-09-08] VITALS (12 sets, daily range): BP systolic 106–146; BP diastolic 61–85; PULSE 60–102; RESP 20; TEMP 97.3–97.8; O2SAT 93–96
[2017-09-08] MEDS: LORazepam 0.5 MG TAB PO PRN ×2 (06:18→21:48)
[2017-09-08] MEDS: traMADol HCL 50 MG TAB PO PRN ×2 (06:18→21:48)
[2017-09-08] MEDS: SODIUM CHLOR 0.9% 1000 ML INJ 1,000 ML IV SCH (06:37)
[2017-09-08] MEDS: DOCUSATE SODIUM 50 MG/SENNA 8.6 MG TAB PO SCH ×2 (09:00→21:00)
[2017-09-08] MEDS: CITALOPRAM HYDROBROMIDE 40 MG TAB PO SCH (09:28)
[2017-09-08] MEDS: PANTOPRAZOLE SOD 20 MG DELAYED RELEASE TAB PO SCH (09:28)
[2017-09-08] MEDS: TOPIRAMATE 25 MG TAB PO SCH (09:28)
[2017-09-08] MEDS: METOPROLOL TARTRATE 50 MG TAB PO SCH (09:28)
[2017-09-08] MEDS: SODIUM CHLORIDE 0.9% FLUSH 10 ML FLUSH IV FLUSH SCH ×2 (09:29→21:46)
[2017-09-08] MEDS: VANCOMYCIN 500 MG VIAL (FOR ORAL USE ONLY) PO SCH ×4 (09:29→21:41)
[2017-09-08 09:42] LABS: HEMATOCRIT 44.8 % (35.0-46.0); HEMOGLOBIN 15.2 GM/DL (11.6-15.3); MEAN CELL VOLUME 96.2 FL (80.0-100.0); MEAN CORPUSCULAR HEMOGLOBIN 32.6 PG (27.0-34.0); MEAN CORPUSCULAR HGB CONC 33.9 % (32.0-36.0); MEAN PLATELET VOLUME 7.6 FL (7.0-11.0); PLATELET COUNT 182 TH/MM3 (150-450); RED BLOOD COUNT 4.66 MIL/MM3 (4.00-5.30); RED CELL DISTRIBUTION WIDTH 15.6 % (11.6-17.2); WHITE BLOOD COUNT 12.9 TH/MM3 (4.0-11.0)
[2017-09-08 09:56] LABS: BICARBONATE 17.9 MEQ/L (21.0-32.0); CREATININE 0.68 MG/DL (0.50-1.00)
[2017-09-08 10:09] LABS: CALCIUM 7.4 MG/DL (8.5-10.1)
[2017-09-08 10:27] LABS: TOTAL PROTEIN 4.4 GM/DL (6.4-8.2)
--- NOTE | 2017-09-08 12:14 | HHI.GIFU ---
Subjective Remarks Resting in bed, napping. Says she feels somewhat better. Still with diarrhea. (Breanna Musa) Objective Vitals I&O Vital Signs Date Time Temp Pulse Resp B/P (MAP) Pulse Ox O2 Delivery O2 Flow Rate FiO2 09/08/17 08:30 Nasal Cannula 2.00 09/08/17 08:00 97.4 85 20 146/67 (93) 93 09/08/17 04:00 79 09/08/17 04:00 97.4 72 20 133/85 (101) 96 09/08/17 00:00 97.4 69 20 133/82 (99) 96 09/08/17 00:00 70 09/07/17 20:00 97.8 69 20 141/58 (85) 95 09/07/17 19:30 Nasal Cannula 2.00 09/07/17 16:00 69 09/07/17 16:00 97.2 70 17 138/63 (88) 95 I/O 09/07/17 09/07/17 09/07/17 09/08/17 09/08/17 09/08/17 07:00 15:00 23:00 07:00 15:00 23:00 Intake Total 1000 ml 1880 ml 240 ml Balance 1000 ml 1880 ml 240 ml Intake Oral 480 ml 240 ml IV Total 1000 ml 1400 ml # Voids 3 4 4 # Bowel Movements 3 2 4 Laboratory Laboratory Tests Test 09/08/17 08:25 White Blood Count 12.9 Red Blood Count 4.66 Hemoglobin 15.2 Hematocrit 44.8 Mean Corpuscular Volume 96.2 Mean Corpuscular Hemoglobin 32.6 Mean Corpuscular Hemoglobin Concent 33.9 Red Cell Distribution Width 15.6 Platelet Count 182 Mean Platelet Volume 7.6 Blood Urea Nitrogen 26 Creatinine 0.68 Random Glucose 133 Total Protein 4.4 Calcium Level 7.4 Sodium Level 138 Potassium Level 5.0 Chloride Level 113 Carbon Dioxide Level 17.9 Anion Gap 7 Estimat Glomerular Filtration Rate 83 Protein Corrected Calcium 9.0 Date/Time Source Procedure Growth Status 09/03/17 14:45 Blood Peripheral Aerobic Blood Culture - Final NO GROWTH IN 5 DAYS Complete 09/03/17 14:45 Blood Peripheral Anaerobic Blood Culture - Final NO GROWTH IN 5 DAYS Complete 09/04/17 10:30 Stool Stool - Final NO ENTERIC PATHOGENS DETECTED BY PCR... Complete 09/03/17 13:50 Urine Catheterized Urine Urine Culture - Final Escherichia Coli Complete Imaging Last Impressions Abdomen/Pelvis CT 09/03/17 0000 Signed Impressions: Service Date/Time: Sunday, September 03, 2017 14:24 - CONCLUSION: Scan appearance consistent with colitis Ridge Chopra MD Physical Exam HEENT: PERRL; normocephalic; atraumatic; no jaundice. CHEST: even, unlabored CARDIAC: RRR ABDOMEN: Soft, obese, nontender; no hepatosplenomegaly; bowel sounds are present in all four quadrants. EXTREMITIES: No clubbing, cyanosis, or edema. SKIN: Normal; no rash; no jaundice. SUSTAINABILITY PURCHASING AGENT: No focal deficits; alert and oriented times three. (Breanna Musa) Assessment and Plan Plan - Colitis- Diarrhea for one week, CT showed colitis, stools ordered but pt hasn' t had a BM, she is having lower abd pain and nausea No previous hx of this, colonoscopy yrs ago, on Cipro and Flagyl - Leukocytosis- secondary to above, on Cipro and Flagyl - Chronic UTI- on abx - HTN per attending 09/05/17 WBC trending up. + c diff now on PO vanc. + abd pain, diarrhea today. 09/07/17 diarrhea somewhat improved. WBC trending down. eating today. 09/08/17 pt feeling better. WBC trending down. eating some. nontender today on exam. gradual improvement Plan: - TAHIR - cont PO vanc - suppportive care - if fails to improve or does worsen, consider dificid pt seen by myself and Dr Campbell and this note is on her behalf (Breanna Musa) Breanna Musa Sep 08, 2017 12:14 Talya Campbell MD Sep 08, 2017 18:08
--- NOTE | 2017-09-08 15:37 | HHI.PR ---
Subjective Remarks Patient reports she is feeling better. Having less bowel movement. Tolerated turkey and carrots for lunch. Abdominal pain is less. Objective Vitals Vital Signs Date Time Temp Pulse Resp B/P (MAP) Pulse Ox O2 Delivery O2 Flow Rate FiO2 09/08/17 12:00 97.8 60 20 145/61 (89) 96 09/08/17 08:30 Nasal Cannula 2.00 09/08/17 08:00 97.4 85 20 146/67 (93) 93 09/08/17 04:00 79 09/08/17 04:00 97.4 72 20 133/85 (101) 96 09/08/17 00:00 97.4 69 20 133/82 (99) 96 09/08/17 00:00 70 09/07/17 20:00 97.8 69 20 141/58 (85) 95 09/07/17 19:30 Nasal Cannula 2.00 09/07/17 16:00 69 09/07/17 16:00 97.2 70 17 138/63 (88) 95 I/O 09/07/17 09/07/17 09/07/17 09/08/17 09/08/17 09/08/17 07:00 15:00 23:00 07:00 15:00 23:00 Intake Total 1000 ml 1880 ml 240 ml Balance 1000 ml 1880 ml 240 ml Intake Oral 480 ml 240 ml IV Total 1000 ml 1400 ml # Voids 3 4 4 # Bowel Movements 3 2 4 Result Diagram: 09/08/17 0825 09/08/17 0825 Objective Remarks GENERAL: This is a well-nourished, well-developed patient, in no apparent distress. CARDIOVASCULAR: Normal rate and regular rhythm without murmurs, gallops, or rubs. RESPIRATORY: Good respiratory efforts. Breath sounds equal and clear to auscultation bilaterally. GASTROINTESTINAL: Abdomen soft, diffuse mild tenderness to palpation. Hyperactive bowel sounds MUSCULOSKELETAL: Extremities without cyanosis, or edema. NEURO: Alert & Oriented x4 to person, place, time, situation. Moves all ext x4 PSYCH: Appropriate mood and affect. A/P Problem List: (1) C. difficile colitis ICD Code: A04.72 - Enterocolitis due to Clostridium difficile, not specified as recurrent Plan: Improving but not well controlled yet. Continue vancomycin orally. 250 mg 4 times daily. GI following DC IV fluid. Diet as tolerated. If no improvement or persistent, would consider ID consult. (2) UTI (urinary tract infection) ICD Code: N39.0 - Urinary tract infection, site not specified Status: Acute Plan: Urine culture grew E. coli S/P treatment with Rocephin (3) INA (acute kidney injury) ICD Code: N17.9 - Acute kidney failure, unspecified Status: Acute Plan: As per review of records the patient has a baseline creatinine of 0.7- 0.8. Likely due to prerenal azotemia and dehydration from diarrhea. Resolved. DC IVF (4) Bandemia ICD Code: D72.825 - Bandemia Status: Acute (5) AICD (automatic cardioverter/defibrillator) present ICD Code: Z95.810 - AICD (automatic cardioverter/defibrillator) present Status: Acute (6) Diarrhea ICD Code: R19.7 - Diarrhea, unspecified Discharge Planning Patient is frail and will need SNF. Can DC to SNF once colitis/diarrhea symptoms improve. Problem Qualifiers (1) UTI (urinary tract infection): Qualified Codes: N30.00 - Acute cystitis without hematuria Trinity Topete MD Sep 08, 2017 15:37
[2017-09-08] MEDS: ATORVASTATIN 20 MG TAB PO SCH (21:41)
[2017-09-09] VITALS (14 sets, daily range): BP systolic 111–148; BP diastolic 58–69; PULSE 69–96; RESP 16–24; TEMP 94.2–98; O2SAT 93–98
[2017-09-09] MEDS: LORazepam 0.5 MG TAB PO PRN ×3 (06:27→18:45)
[2017-09-09] MEDS: traMADol HCL 50 MG TAB PO PRN ×3 (06:27→18:44)
[2017-09-09 07:59] LABS: BICARBONATE 20.4 MEQ/L (21.0-32.0); CALCIUM 7.6 MG/DL (8.5-10.1); CREATININE 0.73 MG/DL (0.50-1.00)
[2017-09-09] MEDS: VANCOMYCIN 500 MG VIAL (FOR ORAL USE ONLY) PO SCH ×4 (08:28→21:18)
[2017-09-09] MEDS: CITALOPRAM HYDROBROMIDE 40 MG TAB PO SCH (08:28)
[2017-09-09] MEDS: guaiFENesin E.R. 600 MG TAB PO SCH ×2 (08:28→21:18)
[2017-09-09] MEDS: TOPIRAMATE 25 MG TAB PO SCH (08:29)
[2017-09-09] MEDS: METOPROLOL TARTRATE 50 MG TAB PO SCH (08:29)
[2017-09-09] MEDS: DOCUSATE SODIUM 50 MG/SENNA 8.6 MG TAB PO SCH ×2 (08:29→21:00)
[2017-09-09] MEDS: PANTOPRAZOLE SOD 20 MG DELAYED RELEASE TAB PO SCH (08:29)
[2017-09-09] MEDS: SODIUM CHLORIDE 0.9% FLUSH 10 ML FLUSH IV FLUSH SCH ×2 (08:30→21:18)
--- NOTE | 2017-09-09 09:14 | HHI.PR ---
Subjective Remarks This is an 82-year-old female who came to Diarrhea, she has Hypertension, GERD , Chronic UTI, Hyperlipidemia Depression, admitted with diagnosis of Colitis, UTI, INA, CT showed colitis, recommended by GI specialist to continue By mouth Vancomycin for C Diff Colitis. Shortness of breath started on Duoneb treatment, Mucinex and Incentive spirometry. she states she also has CHF but no signs of Cardiac dysfunction at this time will follow. continue with Diarrhea, not feeling well. Objective Vital Signs Date Time Temp Pulse Resp B/P (MAP) Pulse Ox O2 Delivery O2 Flow Rate FiO2 09/09/17 08:00 98.0 82 20 121/58 (79) 95 09/09/17 05:30 94.2 96 20 139/63 (88) 93 09/09/17 04:00 90 09/09/17 00:14 72 09/08/17 23:09 97.5 69 20 113/66 (82) 95 09/08/17 21:03 95 Nasal Cannula 2.00 09/08/17 20:47 69 09/08/17 20:22 97.3 69 20 146/63 (90) 96 09/08/17 20:15 Nasal Cannula 2.00 09/08/17 16:00 97.6 69 20 106/65 (79) 95 09/08/17 15:48 102 09/08/17 12:00 97.8 60 20 145/61 (89) 96 09/08/17 11:50 69 I/O 09/08/17 09/08/17 09/08/17 09/09/17 09/09/17 09/09/17 07:00 15:00 23:00 07:00 15:00 23:00 Intake Total 1240 ml 700 ml 0 ml Balance 1240 ml 700 ml 0 ml Intake Oral 240 ml 0 ml IV Total 1000 ml 700 ml # Voids 4 1 6 # Bowel Movements 4 3 Result Diagram: 09/08/17 0825 09/09/17 0710 Imaging Last Impressions Abdomen/Pelvis CT 09/03/17 0000 Signed Impressions: Service Date/Time: Sunday, September 03, 2017 14:24 - CONCLUSION: Scan appearance consistent with colitis Ridge Chopra MD Procedures None Other Results Laboratory Tests Test 09/03/17 13:15 09/03/17 13:50 09/04/17 04:40 09/04/17 10:30 Differential Total Cells Counted 100 Neutrophils % (Manual) 37 % Band Neutrophils % 36 % Lymphocytes % 12 % Monocytes % 15 % Neutrophils # (Manual) 10.1 TH/MM3 Toxic Granulation 1+ Toxic Vacuolation PRESENT Platelet Estimate NORMAL Platelet Morphology Comment NORMAL Lactic Acid Level 1.0 mmol/L Lipase 357 U/L Urine Color YELLOW Urine Turbidity HAZY Urine pH 5.5 Urine Specific [place] 1.023 Urine Protein TRACE mg/dL Urine Glucose (UA) NEG mg/dL Urine Ketones NEG mg/dL Urine Occult Blood NEG Urine Nitrite POS Urine Bilirubin NEG Urine Urobilinogen LESS THAN 2.0 MG/DL Urine Leukocyte Esterase LARGE Urine RBC 3 /hpf Urine WBC 29 /hpf Urine WBC Clumps FEW Urine Squamous Epithelial Cells 4 /hpf Urine Transitional Epithelial Cells <1 /hpf Urine Bacteria MANY /hpf Urine Hyaline Casts 11 /lpf Urine Mucus MOD /lpf Microscopic Urinalysis Comment CATH-CULTURE IND Neutrophils (%) (Auto) 82.6 % Lymphocytes (%) (Auto) 8.7 % Monocytes (%) (Auto) 8.6 % Eosinophils (%) (Auto) 0.0 % Basophils (%) (Auto) 0.1 % Neutrophils # (Auto) 12.3 TH/MM3 Lymphocytes # (Auto) 1.3 TH/MM3 Monocytes # (Auto) 1.3 TH/MM3 Eosinophils # (Auto) 0.0 TH/MM3 Basophils # (Auto) 0.0 TH/MM3 CBC Comment DIFF FINAL Differential Comment Blood Urea Nitrogen 26 MG/DL Creatinine 1.20 MG/DL Random Glucose 156 MG/DL Total Protein 4.9 GM/DL Albumin 2.1 GM/DL Calcium Level 8.0 MG/DL Alkaline Phosphatase 53 U/L Aspartate Amino Transf (AST/SGOT) 17 U/L Alanine Aminotransferase (ALT/SGPT) 19 U/L Total Bilirubin 1.5 MG/DL Sodium Level 138 MEQ/L Potassium Level 3.6 MEQ/L Chloride Level 110 MEQ/L Carbon Dioxide Level 21.0 MEQ/L Eosinophil Stool Smear NONE SEEN /HPF Stool C. difficile Toxin (PCR) POSITIVE Stl C. difficile Toxin Epiderm 027 PRESUMPTIVE POSITIVE Test 09/06/17 07:16 09/08/17 08:25 09/09/17 07:10 Blood Urea Nitrogen 38 MG/DL 26 MG/DL 21 MG/DL Creatinine 1.17 MG/DL 0.68 MG/DL 0.73 MG/DL Random Glucose 131 MG/DL 133 MG/DL 133 MG/DL Calcium Level 7.6 MG/DL 7.4 MG/DL 7.6 MG/DL Magnesium Level 2.2 MG/DL Sodium Level 137 MEQ/L 138 MEQ/L 138 MEQ/L Potassium Level 4.1 MEQ/L 5.0 MEQ/L 4.6 MEQ/L Chloride Level 111 MEQ/L 113 MEQ/L 111 MEQ/L Carbon Dioxide Level 18.9 MEQ/L 17.9 MEQ/L 20.4 MEQ/L White Blood Count 12.9 TH/MM3 Red Blood Count 4.66 MIL/MM3 Hemoglobin 15.2 GM/DL Hematocrit 44.8 % Mean Corpuscular Volume 96.2 FL Mean Corpuscular Hemoglobin 32.6 PG Mean Corpuscular Hemoglobin Concent 33.9 % Red Cell Distribution Width 15.6 % Platelet Count 182 TH/MM3 Mean Platelet Volume 7.6 FL Protein Corrected Calcium 9.0 MG/DL Total Protein 4.4 GM/DL Anion Gap 7 MEQ/L Estimat Glomerular Filtration Rate 77 ML/MIN Objective Remarks GENERAL: This is a well-nourished, well-developed patient, in no apparent distress. CARDIOVASCULAR: Normal rate and regular rhythm without murmurs, gallops, or rubs. RESPIRATORY: Decreased breath sounds bilateral, with mild to moderate expiratory wheezing. GASTROINTESTINAL: Abdomen soft, diffuse mild tenderness to palpation. Hyperactive bowel sounds MUSCULOSKELETAL: Extremities without cyanosis, or edema. NEURO: Alert & Oriented x4 to person, place, time, situation. Moves all ext x4 PSYCH: Appropriate mood and affect. Medications and IVs Current Medications Medications (Trade) Dose Ordered Sig/Dianne Route Start Time Stop Time Status Last Admin (NS Flush) 2 ml UNSCH PRN IV FLUSH 09/03/17 15:45 (NS Flush) 2 ml BID IV FLUSH 09/03/17 21:00 09/09/17 08:30 (Tylenol) 650 mg Q4H PRN PO 09/03/17 15:45 (Zofran Inj) 4 mg Q6H PRN IVP 09/03/17 15:45 09/04/17 01:56 (Lovenox Inj) 40 mg Q24H SQ 09/03/17 17:00 Future Hold 09/04/17 16:14 (Narcan Inj) 0.4 mg UNSCH PRN IV PUSH 09/03/17 15:45 (Allison-Colace) 1 tab BID PO 09/03/17 21:00 (Milk Of Magnesia Liq) 30 ml Q12H PRN PO 09/03/17 15:45 (Senokot) 17.2 mg Q12H PRN PO 09/03/17 15:45 (Dulcolax Supp) 10 mg DAILY PRN RECTAL 09/03/17 15:45 (Lactulose Liq) 30 ml DAILY PRN PO 09/03/17 15:45 (Lipitor) 20 mg HS PO 09/04/17 21:00 09/08/17 21:41 (CeleXA) 40 mg DAILY PO 09/05/17 09:00 09/09/17 08:28 (Ativan) 0.5 mg Q6H PRN PO 09/04/17 15:00 09/09/17 06:27 (Lopressor) 50 mg DAILY PO 09/04/17 15:00 09/09/17 08:29 (Topamax) 25 mg DAILY PO 09/04/17 15:00 09/09/17 08:29 (Ultram) 50 mg Q6H PRN PO 09/04/17 15:00 09/09/17 06:27 (Protonix) 20 mg DAILY PO 09/05/17 09:00 09/09/17 08:29 (VANCOMYCIN for oral use only) 250 mg QID PO 09/05/17 18:00 09/09/17 08:28 (Duoneb Neb) 1 ampule Q4HR NEB NEB 09/09/17 12:00 (Mucinex Er) 600 mg BID PO 09/09/17 09:00 09/09/17 08:28 A/P Assessment and Plan (1) C. difficile colitis ICD Code: A04.72 - Enterocolitis due to Clostridium difficile, not specified as recurrent Plan: Improving but not well controlled yet. Continue vancomycin orally. 250 mg 4 times daily. GI following stable having Diarrhea, started on Questran by mouth TID. (2) UTI (urinary tract infection) ICD Code: N39.0 - Urinary tract infection, site not specified Status: Acute Plan: Urine culture grew E. coli S/P treatment with Rocephin (3) Respiratory Insufficiency Has Expiratory wheezing, started on Duoneb treatment, Mucinex and Incentive spirometry, Oxygen as needed. (4) Bandemia Improving leukocytosis ICD Code: D72.825 - Bandemia Status: Acute (5) AICD (automatic cardioverter/defibrillator) present ICD Code: Z95.810 - AICD (automatic cardioverter/defibrillator) present Status: Acute (6) Diarrhea ICD Code: R19.7 - Diarrhea, unspecified DVT prophylaxis with SCDs Discharge Planning Once cleared by GI specialist. Efrain Huber MD Sep 09, 2017 09:14
[2017-09-09] MEDS: RESP: ALBUTEROL 2.5 MG/IPRATROPIUM 0.5 MG NEB (SCH) NEB ×3 (12:29→20:02)
--- NOTE | 2017-09-09 13:29 | HHI.GIFU ---
Subjective Remarks Resting in the bed awake talkative Mild anxiety, states she refuses to have colonoscopy and does not want to discuss it any further Generalized crampy abdominal pain off and on States diarrhea 2 today, with gradual improvement (Kiki Leija) Objective Vitals I&O Vital Signs Date Time Temp Pulse Resp B/P (MAP) Pulse Ox O2 Delivery O2 Flow Rate FiO2 09/09/17 12:35 96 Nasal Cannula 2.00 09/09/17 12:00 97.9 70 24 127/60 (82) 95 09/09/17 08:00 Nasal Cannula 2.00 09/09/17 08:00 98.0 82 20 121/58 (79) 95 09/09/17 05:30 94.2 96 20 139/63 (88) 93 09/09/17 04:00 90 09/09/17 00:14 72 09/08/17 23:09 97.5 69 20 113/66 (82) 95 09/08/17 21:03 95 Nasal Cannula 2.00 09/08/17 20:47 69 09/08/17 20:22 97.3 69 20 146/63 (90) 96 09/08/17 20:15 Nasal Cannula 2.00 09/08/17 16:00 97.6 69 20 106/65 (79) 95 09/08/17 15:48 102 I/O 09/08/17 09/08/17 09/08/17 09/09/17 09/09/17 09/09/17 07:00 15:00 23:00 07:00 15:00 23:00 Intake Total 1240 ml 700 ml 0 ml Balance 1240 ml 700 ml 0 ml Intake Oral 240 ml 0 ml IV Total 1000 ml 700 ml # Voids 4 1 6 # Bowel Movements 4 3 Laboratory Laboratory Tests Test 09/09/17 07:10 Blood Urea Nitrogen 21 Creatinine 0.73 Random Glucose 133 Calcium Level 7.6 Sodium Level 138 Potassium Level 4.6 Chloride Level 111 Carbon Dioxide Level 20.4 Anion Gap 7 Estimat Glomerular Filtration Rate 77 Date/Time Source Procedure Growth Status 09/03/17 14:45 Blood Peripheral Aerobic Blood Culture - Final NO GROWTH IN 5 DAYS Complete 09/03/17 14:45 Blood Peripheral Anaerobic Blood Culture - Final NO GROWTH IN 5 DAYS Complete 09/04/17 10:30 Stool Stool - Final NO ENTERIC PATHOGENS DETECTED BY PCR... Complete 09/03/17 13:50 Urine Catheterized Urine Urine Culture - Final Escherichia Coli Complete Imaging Last Impressions Abdomen/Pelvis CT 09/03/17 0000 Signed Impressions: Service Date/Time: Sunday, September 03, 2017 14:24 - CONCLUSION: Scan appearance consistent with colitis Ridge Chopra MD Physical Exam HEENT: normocephalic; atraumatic; no jaundice. , Obese CHEST: Mild diminished breath sounds unlabored, no obvious rhonchi CARDIAC: RRR ABDOMEN: Soft, obese, generalized tenderness with light palpation; no hepatosplenomegaly; bowel sounds are present in all four quadrants. EXTREMITIES: No lower extremity edema. SKIN: Normal; no rash; no jaundice. Obese SIGNALMAN: No focal deficits; alert and oriented times three. Mild anxiety (Kiki Leija) Assessment and Plan Plan Assessment/history - Colitis- Diarrhea for one week, CT showed colitis, stools ordered but pt hasn' t had a BM, she is having lower abd pain and nausea No previous hx of this, colonoscopy yrs ago, on Cipro and Flagyl - Leukocytosis- secondary to above, on Cipro and Flagyl - Chronic UTI- on abx - HTN per attending 09/05/17 WBC trending up. + c diff now on PO vanc. + abd pain, diarrhea today. 09/07/17 diarrhea somewhat improved. WBC trending down. eating today. 09/08/17 pt feeling better. WBC trending down. eating some. nontender today on exam. gradual improvement 09/09/2018, patient states diarrhea stools 2 today. Appears to be anxious stating that she will never have a colonoscopy and she does not discuss it further. Patient became mildly tearful and states that "this is what killed her mother". She also states no one will probe around and look for cancer on her. Currently still has some decreased appetite but is attempting to eat regular food now. No nausea no vomiting abdominal discomfort is diffuse with light palpation Hemoglobin stable at 15.2. Plan: - TAHIR - cont PO vanc -Monitor labs -Continue Questran -Protonix -Any bowel regimen needs -Intake and output - supportive care, notes mild gradual improvement pt seen by myself and Dr Campbell and this note is on her behalf (Kiki Leija) Kiki Leija Sep 09, 2017 13:29 aTlya Campbell MD Sep 11, 2017 16:42
[2017-09-09] MEDS: CHOLESTYRAMINE 4 GM PACKET PO SCH ×2 (14:53→21:17)
[2017-09-09] MEDS: ATORVASTATIN 20 MG TAB PO SCH (21:18)
[2017-09-10] VITALS (8 sets, daily range): BP systolic 132–158; BP diastolic 61–75; PULSE 59–97; RESP 16–22; TEMP 97.4–98.1; O2SAT 94–96
[2017-09-10] MEDS: RESP: ALBUTEROL 2.5 MG/IPRATROPIUM 0.5 MG NEB (SCH) NEB ×6 (00:41→23:52)
[2017-09-10] MEDS: LORazepam 0.5 MG TAB PO PRN ×3 (03:20→18:31)
[2017-09-10] MEDS: traMADol HCL 50 MG TAB PO PRN ×3 (03:20→18:31)
[2017-09-10] MEDS: CHOLESTYRAMINE 4 GM PACKET PO SCH ×3 (05:08→21:44)
[2017-09-10] MEDS: DOCUSATE SODIUM 50 MG/SENNA 8.6 MG TAB PO SCH ×2 (09:00→21:45)
[2017-09-10] MEDS: VANCOMYCIN 500 MG VIAL (FOR ORAL USE ONLY) PO SCH ×4 (09:00→21:44)
[2017-09-10] MEDS: METOPROLOL TARTRATE 50 MG TAB PO SCH (10:09)
[2017-09-10] MEDS: guaiFENesin E.R. 600 MG TAB PO SCH ×2 (10:09→21:45)
[2017-09-10] MEDS: TOPIRAMATE 25 MG TAB PO SCH (10:09)
[2017-09-10] MEDS: PANTOPRAZOLE SOD 20 MG DELAYED RELEASE TAB PO SCH (10:09)
[2017-09-10] MEDS: CITALOPRAM HYDROBROMIDE 40 MG TAB PO SCH (10:10)
[2017-09-10] MEDS: SODIUM CHLORIDE 0.9% FLUSH 10 ML FLUSH IV FLUSH SCH ×2 (10:13→21:46)
--- NOTE | 2017-09-10 10:46 | HHI.GIFU ---
Subjective Remarks Pt complaining of abdominal bloating and flatulence States stools are more formed Tolerating regular diet Objective Vitals I&O Vital Signs Date Time Temp Pulse Resp B/P (MAP) Pulse Ox O2 Delivery O2 Flow Rate FiO2 09/10/17 08:00 97.9 89 22 158/75 (102) 94 09/10/17 07:46 2.00 09/10/17 04:45 18 09/10/17 04:20 97.4 89 16 138/63 (88) 96 09/10/17 04:00 Nasal Cannula 2.00 Humidified 09/10/17 00:00 Nasal Cannula 2.00 Humidified 09/09/17 23:35 98.0 88 16 148/69 (95) 98 09/09/17 23:33 98.0 78 16 128/60 (82) 96 09/09/17 21:20 Nasal Cannula 2.00 09/09/17 20:02 96 Nasal Cannula 2.00 09/09/17 20:00 97.9 77 16 131/59 (83) 96 09/09/17 19:52 76 09/09/17 16:01 69 09/09/17 16:00 97.8 69 24 111/66 (81) 98 09/09/17 12:35 96 Nasal Cannula 2.00 09/09/17 12:00 97.9 70 24 127/60 (82) 95 09/09/17 11:55 69 I/O 09/09/17 09/09/17 09/09/17 09/10/17 09/10/17 09/10/17 07:00 15:00 23:00 07:00 15:00 23:00 Intake Total 0 ml 480 ml Balance 0 ml 480 ml Intake Oral 0 ml 480 ml # Voids 6 4 6 # Bowel Movements 3 4 1 Laboratory Date/Time Source Procedure Growth Status 09/03/17 14:45 Blood Peripheral Aerobic Blood Culture - Final NO GROWTH IN 5 DAYS Complete 09/03/17 14:45 Blood Peripheral Anaerobic Blood Culture - Final NO GROWTH IN 5 DAYS Complete 09/04/17 10:30 Stool Stool - Final NO ENTERIC PATHOGENS DETECTED BY PCR... Complete 09/03/17 13:50 Urine Catheterized Urine Urine Culture - Final Escherichia Coli Complete Imaging Last Impressions Abdomen/Pelvis CT 09/03/17 0000 Signed Impressions: Service Date/Time: Sunday, September 03, 2017 14:24 - CONCLUSION: Scan appearance consistent with colitis Ridge Chopra MD Physical Exam HEENT: Normocephalic; atraumatic CHEST: Even/unlabored CARDIAC: RRR ABDOMEN: Soft, obese, mildly tenderness to lower abdomen, no guarding, bowel sounds acitve EXTREMITIES: No lower extremity edema. [employer] SUPERVISOR: Alert and oriented x 3 Assessment and Plan Plan Assessment/history - Colitis- Diarrhea for one week, CT showed colitis, stools ordered but pt hasn' t had a BM, she is having lower abd pain and nausea No previous hx of this, colonoscopy yrs ago, on Cipro and Flagyl - Leukocytosis- secondary to above, on Cipro and Flagyl - Chronic UTI- on abx - HTN per attending 09/05/17 WBC trending up. + c diff now on PO vanc. + abd pain, diarrhea today. 09/07/17 diarrhea somewhat improved. WBC trending down. eating today. 09/08/17 pt feeling better. WBC trending down. eating some. nontender today on exam. gradual improvement 09/09/2018, patient states diarrhea stools 2 today. Appears to be anxious stating that she will never have a colonoscopy and she does not discuss it further. Patient became mildly tearful and states that "this is what killed her mother". She also states no one will probe around and look for cancer on her. Currently still has some decreased appetite but is attempting to eat regular food now. No nausea no vomiting abdominal discomfort is diffuse with light palpation Hemoglobin stable at 15.2. (09/10) Pt reports more formed stools. Still with some abdominal bloating and flatulence. Remains on PO Vancomycin. Leukocytosis improving Plan: - TAHIR - PO vancomycin - Monitor stool count - GI will sign off, have pt follow up with GI after discharge, reconsult as needed This patient has been seen and examined by myself and Dr. Hess and this note is written on his behalf Abby Hernandez Sep 10, 2017 10:46
--- NOTE | 2017-09-10 10:51 | HHI.PR ---
Subjective Remarks This is an 82-year-old female who came to Diarrhea, she has Hypertension, GERD , Chronic UTI, Hyperlipidemia Depression, admitted with diagnosis of Colitis, UTI, INA, CT showed colitis, recommended by GI specialist to continue By mouth Vancomycin for C Diff Colitis. Shortness of breath started on Duoneb treatment, Mucinex and Incentive spirometry. she states she also has CHF but no signs of Cardiac dysfunction at this time will follow. continue with Diarrhea, not feeling well. 09/10: patient improving Diarrhea, only one BM from yesterday night, also she states she is feeling well she has Cardiomyopathy, and will get BNP and Chest X ray now and follow. laboratory in am tomorrow, GI specialist following, continue Vancomycin by mouth, No nausea or vomit. Objective Vital Signs Date Time Temp Pulse Resp B/P (MAP) Pulse Ox O2 Delivery O2 Flow Rate FiO2 09/10/17 08:00 97.9 89 22 158/75 (102) 94 09/10/17 07:46 2.00 09/10/17 04:45 18 09/10/17 04:20 97.4 89 16 138/63 (88) 96 09/10/17 04:00 Nasal Cannula 2.00 Humidified 09/10/17 00:00 Nasal Cannula 2.00 Humidified 09/09/17 23:35 98.0 88 16 148/69 (95) 98 09/09/17 23:33 98.0 78 16 128/60 (82) 96 09/09/17 21:20 Nasal Cannula 2.00 09/09/17 20:02 96 Nasal Cannula 2.00 09/09/17 20:00 97.9 77 16 131/59 (83) 96 09/09/17 19:52 76 09/09/17 16:01 69 09/09/17 16:00 97.8 69 24 111/66 (81) 98 09/09/17 12:35 96 Nasal Cannula 2.00 09/09/17 12:00 97.9 70 24 127/60 (82) 95 09/09/17 11:55 69 I/O 09/09/17 09/09/17 09/09/17 09/10/17 09/10/17 09/10/17 07:00 15:00 23:00 07:00 15:00 23:00 Intake Total 0 ml 480 ml Balance 0 ml 480 ml Intake Oral 0 ml 480 ml # Voids 6 4 6 # Bowel Movements 3 4 1 Result Diagram: 09/08/17 0825 09/09/17 0710 Imaging Last Impressions Abdomen/Pelvis CT 09/03/17 0000 Signed Impressions: Service Date/Time: Tuesday, September 03, 2017 14:24 - CONCLUSION: Scan appearance consistent with colitis Ridge Chopra MD Procedures None Other Results Laboratory Tests Test 09/03/17 13:15 09/03/17 13:50 09/04/17 04:40 09/04/17 10:30 Differential Total Cells Counted 100 Neutrophils % (Manual) 37 % Band Neutrophils % 36 % Lymphocytes % 12 % Monocytes % 15 % Neutrophils # (Manual) 10.1 TH/MM3 Toxic Granulation 1+ Toxic Vacuolation PRESENT Platelet Estimate NORMAL Platelet Morphology Comment NORMAL Lactic Acid Level 1.0 mmol/L Lipase 357 U/L Urine Color YELLOW Urine Turbidity HAZY Urine pH 5.5 Urine Specific [place] 1.023 Urine Protein TRACE mg/dL Urine Glucose (UA) NEG mg/dL Urine Ketones NEG mg/dL Urine Occult Blood NEG Urine Nitrite POS Urine Bilirubin NEG Urine Urobilinogen LESS THAN 2.0 MG/DL Urine Leukocyte Esterase LARGE Urine RBC 3 /hpf Urine WBC 29 /hpf Urine WBC Clumps FEW Urine Squamous Epithelial Cells 4 /hpf Urine Transitional Epithelial Cells <1 /hpf Urine Bacteria MANY /hpf Urine Hyaline Casts 11 /lpf Urine Mucus MOD /lpf Microscopic Urinalysis Comment CATH-CULTURE IND Neutrophils (%) (Auto) 82.6 % Lymphocytes (%) (Auto) 8.7 % Monocytes (%) (Auto) 8.6 % Eosinophils (%) (Auto) 0.0 % Basophils (%) (Auto) 0.1 % Neutrophils # (Auto) 12.3 TH/MM3 Lymphocytes # (Auto) 1.3 TH/MM3 Monocytes # (Auto) 1.3 TH/MM3 Eosinophils # (Auto) 0.0 TH/MM3 Basophils # (Auto) 0.0 TH/MM3 CBC Comment DIFF FINAL Differential Comment Blood Urea Nitrogen 26 MG/DL Creatinine 1.20 MG/DL Random Glucose 156 MG/DL Total Protein 4.9 GM/DL Albumin 2.1 GM/DL Calcium Level 8.0 MG/DL Alkaline Phosphatase 53 U/L Aspartate Amino Transf (AST/SGOT) 17 U/L Alanine Aminotransferase (ALT/SGPT) 19 U/L Total Bilirubin 1.5 MG/DL Sodium Level 138 MEQ/L Potassium Level 3.6 MEQ/L Chloride Level 110 MEQ/L Carbon Dioxide Level 21.0 MEQ/L Eosinophil Stool Smear NONE SEEN /HPF Stool C. difficile Toxin (PCR) POSITIVE Stl C. difficile Toxin Epiderm 027 PRESUMPTIVE POSITIVE Test 09/06/17 07:16 09/08/17 08:25 09/09/17 07:10 Blood Urea Nitrogen 38 MG/DL 26 MG/DL 21 MG/DL Creatinine 1.17 MG/DL 0.68 MG/DL 0.73 MG/DL Random Glucose 131 MG/DL 133 MG/DL 133 MG/DL Calcium Level 7.6 MG/DL 7.4 MG/DL 7.6 MG/DL Magnesium Level 2.2 MG/DL Sodium Level 137 MEQ/L 138 MEQ/L 138 MEQ/L Potassium Level 4.1 MEQ/L 5.0 MEQ/L 4.6 MEQ/L Chloride Level 111 MEQ/L 113 MEQ/L 111 MEQ/L Carbon Dioxide Level 18.9 MEQ/L 17.9 MEQ/L 20.4 MEQ/L White Blood Count 12.9 TH/MM3 Red Blood Count 4.66 MIL/MM3 Hemoglobin 15.2 GM/DL Hematocrit 44.8 % Mean Corpuscular Volume 96.2 FL Mean Corpuscular Hemoglobin 32.6 PG Mean Corpuscular Hemoglobin Concent 33.9 % Red Cell Distribution Width 15.6 % Platelet Count 182 TH/MM3 Mean Platelet Volume 7.6 FL Protein Corrected Calcium 9.0 MG/DL Total Protein 4.4 GM/DL Anion Gap 7 MEQ/L Estimat Glomerular Filtration Rate 77 ML/MIN Objective Remarks GENERAL: This is a well-nourished, well-developed patient, in no apparent distress. CARDIOVASCULAR: Normal rate and regular rhythm without murmurs, gallops, or rubs. RESPIRATORY: Decreased breath sounds bilateral, with mild to moderate expiratory wheezing. GASTROINTESTINAL: Abdomen soft, diffuse mild tenderness to palpation. Hyperactive bowel sounds MUSCULOSKELETAL: Extremities without cyanosis, or edema. NEURO: Alert & Oriented x4 to person, place, time, situation. Moves all ext x4 PSYCH: Appropriate mood and affect. Medications and IVs Current Medications Medications (Trade) Dose Ordered Sig/Dianne Route Start Time Stop Time Status Last Admin (NS Flush) 2 ml UNSCH PRN IV FLUSH 09/03/17 15:45 (NS Flush) 2 ml BID IV FLUSH 09/03/17 21:00 09/10/17 10:13 (Tylenol) 650 mg Q4H PRN PO 09/03/17 15:45 (Zofran Inj) 4 mg Q6H PRN IVP 09/03/17 15:45 09/04/17 01:56 (Lovenox Inj) 40 mg Q24H SQ 09/03/17 17:00 Future Hold 09/04/17 16:14 (Narcan Inj) 0.4 mg UNSCH PRN IV PUSH 09/03/17 15:45 (Allison-Colace) 1 tab BID PO 09/03/17 21:00 (Milk Of Magnesia Liq) 30 ml Q12H PRN PO 09/03/17 15:45 (Senokot) 17.2 mg Q12H PRN PO 09/03/17 15:45 (Dulcolax Supp) 10 mg DAILY PRN RECTAL 09/03/17 15:45 (Lactulose Liq) 30 ml DAILY PRN PO 09/03/17 15:45 (Lipitor) 20 mg HS PO 09/04/17 21:00 09/09/17 21:18 (CeleXA) 40 mg DAILY PO 09/05/17 09:00 09/10/17 10:10 (Ativan) 0.5 mg Q6H PRN PO 09/04/17 15:00 09/10/17 10:11 (Lopressor) 50 mg DAILY PO 09/04/17 15:00 09/10/17 10:09 (Topamax) 25 mg DAILY PO 09/04/17 15:00 09/10/17 10:09 (Ultram) 50 mg Q6H PRN PO 09/04/17 15:00 09/10/17 10:11 (Protonix) 20 mg DAILY PO 09/05/17 09:00 09/10/17 10:09 (VANCOMYCIN for oral use only) 250 mg QID PO 09/05/17 18:00 09/10/17 09:00 (Duoneb Neb) 1 ampule Q4HR NEB NEB 09/09/17 12:00 09/10/17 07:46 (Mucinex Er) 600 mg BID PO 09/09/17 09:00 09/10/17 10:09 (Questran 4 Gm Pkt) 4 gm Q8HR PO 09/09/17 14:00 09/10/17 05:08 A/P Assessment and Plan (1) C. difficile colitis ICD Code: A04.72 - Enterocolitis due to Clostridium difficile, not specified as recurrent Plan: Improving but not well controlled yet. Continue vancomycin orally. 250 mg 4 times daily. GI following Improving, started on Questran by mouth TID. (2) UTI (urinary tract infection) ICD Code: N39.0 - Urinary tract infection, site not specified Status: Acute Plan: Urine culture grew E. coli S/P treatment with Rocephin (3) Respiratory Insufficiency Has Expiratory wheezing, started on Duoneb treatment, Mucinex and Incentive spirometry, Oxygen as needed. asked for CXR and BNP now and follow (4) Bandemia Improving leukocytosis ICD Code: D72.825 - Bandemia Status: Acute (5) AICD (automatic cardioverter/defibrillator) present ICD Code: Z95.810 - AICD (automatic cardioverter/defibrillator) present Status: Acute as per patient she has Cardiomyopathy but as per FRANCIS performed here on 09/05/17 did not found pathology following BNP and CXR (6) Diarrhea ICD Code: R19.7 - Improving on Questran secondary to C Diff. on by mouth Vancomycin. (7)Deconditioning asked for PT evaluation DVT prophylaxis with SCDs and Heparin f Discharge Planning Once cleared by GI specialist. Efrain Huber MD Sep 10, 2017 10:51
--- NOTE | 2017-09-10 11:32 | RADRPT ---
EXAM DATE/TIME: 09/10/2017 10:48 [facility] COMPARISON: No previous studies available for comparison. INDICATIONS : Short of breath. MEDICAL HISTORY : Carcinoma, breast. Congestive heart failure. Hypertension. SURGICAL HISTORY : mastectomy ENCOUNTER: Initial ACUITY: 2 days PAIN SCORE: 0/10 LOCATION: Bilateral chest FINDINGS: A single AP erect portable view of the chest was obtained and demonstrates a left subclavian AV seque ntial transvenous patient with pacemaker lead. There are multiple apparent abandoned leads as well. T here is patchy opacity at the left lung base with partial obscuration left hemidiaphragm possible andres nting left costophrenic angle. The heart size is at the upper limits of normal. The right lung is francy ar. There is overlying oxygen tubing appears coiled. Multiple overlying electrocardiogram leads are p resent as well. CONCLUSION: 1. Hazy opacity at the left lung base with partial obscuration of the left hemidiaphragm and possible blunting of the costophrenic angle. This could represent infiltrate and/or effusion. Deion Colon MD on September 10, 2017 at 11:27 Board Certified Radiologist. This report was verified electronically.
[2017-09-10] MEDS: HEPARIN SODIUM - SQ 10,000 UNITS/ML VIAL SQ SCH ×2 (14:00→21:45)
[2017-09-10] MEDS: ATORVASTATIN 20 MG TAB PO SCH (21:46)
[2017-09-11] VITALS (10 sets, daily range): BP systolic 111–147; BP diastolic 56–75; PULSE 54–93; RESP 17–20; TEMP 97.7–98.2; O2SAT 93–96
[2017-09-11] MEDS: LORazepam 0.5 MG TAB PO PRN ×3 (00:46→20:59)
[2017-09-11] MEDS: traMADol HCL 50 MG TAB PO PRN ×3 (00:46→20:59)
[2017-09-11] MEDS: RESP: ALBUTEROL 2.5 MG/IPRATROPIUM 0.5 MG NEB (SCH) NEB ×5 (03:23→23:36)
[2017-09-11] MEDS: HEPARIN SODIUM - SQ 10,000 UNITS/ML VIAL SQ SCH ×3 (06:23→21:00)
[2017-09-11] MEDS: CHOLESTYRAMINE 4 GM PACKET PO SCH (06:23)
--- NOTE | 2017-09-11 09:05 | HHI.PR ---
Subjective Remarks This is an 82-year-old female who came to Diarrhea, she has Hypertension, GERD , Chronic UTI, Hyperlipidemia Depression, admitted with diagnosis of Colitis, UTI, INA, CT showed colitis, recommended by GI specialist to continue By mouth Vancomycin for C Diff Colitis. Shortness of breath started on Duoneb treatment, Mucinex and Incentive spirometry. she states she also has CHF but no signs of Cardiac dysfunction at this time will follow. continue with Diarrhea, not feeling well. 09/10: patient improving Diarrhea, only one BM from yesterday night, also she states she is feeling well she has Cardiomyopathy, and will get BNP and Chest X ray now and follow. laboratory in am tomorrow, GI specialist following, continue Vancomycin by mouth. 09/11: The patient had seven BMs yesterday asked for ID specialist consult, She is not improving. discussed with Doctor Kaylie Ramos ID specialist, states perhaps the increase in patient oral intake may be associated with the increased Bowel movements, recommended to continue Vancomycin by mouth and added Asacol, Objective Vital Signs Date Time Temp Pulse Resp B/P (MAP) Pulse Ox O2 Delivery O2 Flow Rate FiO2 09/11/17 04:00 Nasal Cannula 2.00 09/11/17 04:00 97.9 85 20 142/75 (97) 96 09/11/17 03:43 61 09/11/17 00:00 Nasal Cannula 2.00 09/11/17 00:00 98.2 89 20 147/70 (95) 96 09/10/17 23:43 71 09/10/17 20:10 95 Nasal Cannula 2.00 09/10/17 20:00 Nasal Cannula 2.00 09/10/17 20:00 98.1 70 20 136/64 (88) 96 09/10/17 19:43 70 09/10/17 16:00 Room Air 09/10/17 16:00 98.0 69 20 132/63 (86) 94 09/10/17 16:00 69 09/10/17 12:00 75 09/10/17 12:00 97.8 97 22 132/61 (84) 95 09/10/17 11:55 Nasal Cannula 2.00 Humidified I/O 09/10/17 09/10/17 09/10/17 09/11/17 09/11/17 09/11/17 07:00 15:00 23:00 07:00 15:00 23:00 Intake Total 600 ml 240 ml Balance 600 ml 240 ml Intake Oral 600 ml 240 ml # Voids 6 4 3 # Bowel Movements 1 4 3 Result Diagram: 09/08/17 0825 09/09/17 0710 Imaging Last Impressions Chest X-Ray 09/10/17 0000 Signed Impressions: Service Date/Time: Sunday, September 10, 2017 10:48 - CONCLUSION: 1. Hazy opacity at the left lung base with partial obscuration of the left hemidiaphragm and possible blunting of the costophrenic angle. This could represent infiltrate and/or effusion. Deion Colon MD Abdomen/Pelvis CT 09/03/17 0000 Signed Impressions: Service Date/Time: Sunday, September 03, 2017 14:24 - CONCLUSION: Scan appearance consistent with colitis Ridge Chopra MD Procedures None Other Results Laboratory Tests Test 09/03/17 13:15 09/03/17 13:50 09/04/17 04:40 09/04/17 10:30 Differential Total Cells Counted 100 Neutrophils % (Manual) 37 % Band Neutrophils % 36 % Lymphocytes % 12 % Monocytes % 15 % Neutrophils # (Manual) 10.1 TH/MM3 Toxic Granulation 1+ Toxic Vacuolation PRESENT Platelet Estimate NORMAL Platelet Morphology Comment NORMAL Lactic Acid Level 1.0 mmol/L Lipase 357 U/L Urine Color YELLOW Urine Turbidity HAZY Urine pH 5.5 Urine Specific [place] 1.023 Urine Protein TRACE mg/dL Urine Glucose (UA) NEG mg/dL Urine Ketones NEG mg/dL Urine Occult Blood NEG Urine Nitrite POS Urine Bilirubin NEG Urine Urobilinogen LESS THAN 2.0 MG/DL Urine Leukocyte Esterase LARGE Urine RBC 3 /hpf Urine WBC 29 /hpf Urine WBC Clumps FEW Urine Squamous Epithelial Cells 4 /hpf Urine Transitional Epithelial Cells <1 /hpf Urine Bacteria MANY /hpf Urine Hyaline Casts 11 /lpf Urine Mucus MOD /lpf Microscopic Urinalysis Comment CATH-CULTURE IND Neutrophils (%) (Auto) 82.6 % Lymphocytes (%) (Auto) 8.7 % Monocytes (%) (Auto) 8.6 % Eosinophils (%) (Auto) 0.0 % Basophils (%) (Auto) 0.1 % Neutrophils # (Auto) 12.3 TH/MM3 Lymphocytes # (Auto) 1.3 TH/MM3 Monocytes # (Auto) 1.3 TH/MM3 Eosinophils # (Auto) 0.0 TH/MM3 Basophils # (Auto) 0.0 TH/MM3 CBC Comment DIFF FINAL Differential Comment Blood Urea Nitrogen 26 MG/DL Creatinine 1.20 MG/DL Random Glucose 156 MG/DL Total Protein 4.9 GM/DL Albumin 2.1 GM/DL Calcium Level 8.0 MG/DL Alkaline Phosphatase 53 U/L Aspartate Amino Transf (AST/SGOT) 17 U/L Alanine Aminotransferase (ALT/SGPT) 19 U/L Total Bilirubin 1.5 MG/DL Sodium Level 138 MEQ/L Potassium Level 3.6 MEQ/L Chloride Level 110 MEQ/L Carbon Dioxide Level 21.0 MEQ/L Eosinophil Stool Smear NONE SEEN /HPF Stool C. difficile Toxin (PCR) POSITIVE Stl C. difficile Toxin Epiderm 027 PRESUMPTIVE POSITIVE Test 09/06/17 07:16 09/08/17 08:25 09/09/17 07:10 09/10/17 12:00 Blood Urea Nitrogen 38 MG/DL 26 MG/DL 21 MG/DL Creatinine 1.17 MG/DL 0.68 MG/DL 0.73 MG/DL Random Glucose 131 MG/DL 133 MG/DL 133 MG/DL Calcium Level 7.6 MG/DL 7.4 MG/DL 7.6 MG/DL Magnesium Level 2.2 MG/DL Sodium Level 137 MEQ/L 138 MEQ/L 138 MEQ/L Potassium Level 4.1 MEQ/L 5.0 MEQ/L 4.6 MEQ/L Chloride Level 111 MEQ/L 113 MEQ/L 111 MEQ/L Carbon Dioxide Level 18.9 MEQ/L 17.9 MEQ/L 20.4 MEQ/L White Blood Count 12.9 TH/MM3 Red Blood Count 4.66 MIL/MM3 Hemoglobin 15.2 GM/DL Hematocrit 44.8 % Mean Corpuscular Volume 96.2 FL Mean Corpuscular Hemoglobin 32.6 PG Mean Corpuscular Hemoglobin Concent 33.9 % Red Cell Distribution Width 15.6 % Platelet Count 182 TH/MM3 Mean Platelet Volume 7.6 FL Protein Corrected Calcium 9.0 MG/DL Total Protein 4.4 GM/DL Anion Gap 7 MEQ/L Estimat Glomerular Filtration Rate 77 ML/MIN B-Type Natriuretic Peptide 18 PG/ML Objective Remarks GENERAL: This is a well-nourished, well-developed patient, in no apparent distress. CARDIOVASCULAR: Normal rate and regular rhythm without murmurs, gallops, or rubs. RESPIRATORY: Decreased breath sounds bilateral, with mild to moderate expiratory wheezing. GASTROINTESTINAL: Abdomen soft, diffuse mild tenderness to palpation. Hyperactive bowel sounds MUSCULOSKELETAL: Extremities without cyanosis, or edema. NEURO: Alert & Oriented x4 to person, place, time, situation. Moves all ext x4 PSYCH: Appropriate mood and affect. Medications and IVs Current Medications Medications (Trade) Dose Ordered Sig/Dianne Route Start Time Stop Time Status Last Admin (NS Flush) 2 ml UNSCH PRN IV FLUSH 09/03/17 15:45 (NS Flush) 2 ml BID IV FLUSH 09/03/17 21:00 09/10/17 21:46 (Tylenol) 650 mg Q4H PRN PO 09/03/17 15:45 (Zofran Inj) 4 mg Q6H PRN IVP 09/03/17 15:45 09/04/17 01:56 (Lovenox Inj) 40 mg Q24H SQ 09/03/17 17:00 Future Hold 09/04/17 16:14 (Narcan Inj) 0.4 mg UNSCH PRN IV PUSH 09/03/17 15:45 (Allison-Colace) 1 tab BID PO 09/03/17 21:00 09/10/17 21:45 (Milk Of Magnesia Liq) 30 ml Q12H PRN PO 09/03/17 15:45 (Senokot) 17.2 mg Q12H PRN PO 09/03/17 15:45 (Dulcolax Supp) 10 mg DAILY PRN RECTAL 09/03/17 15:45 (Lactulose Liq) 30 ml DAILY PRN PO 09/03/17 15:45 (Lipitor) 20 mg HS PO 09/04/17 21:00 09/10/17 21:46 (CeleXA) 40 mg DAILY PO 09/05/17 09:00 09/10/17 10:10 (Ativan) 0.5 mg Q6H PRN PO 09/04/17 15:00 09/11/17 06:24 (Lopressor) 50 mg DAILY PO 09/04/17 15:00 09/10/17 10:09 (Topamax) 25 mg DAILY PO 09/04/17 15:00 09/10/17 10:09 (Ultram) 50 mg Q6H PRN PO 09/04/17 15:00 09/11/17 06:24 (Protonix) 20 mg DAILY PO 09/05/17 09:00 09/10/17 10:09 (VANCOMYCIN for oral use only) 250 mg QID PO 09/05/17 18:00 09/10/17 21:44 (Duoneb Neb) 1 ampule Q4HR NEB NEB 09/09/17 12:00 09/10/17 20:07 (Mucinex Er) 600 mg BID PO 09/09/17 09:00 09/10/17 21:45 (Questran 4 Gm Pkt) 4 gm Q8HR PO 09/09/17 14:00 09/11/17 06:23 (Heparin Inj) 5,000 units Q8HR SQ 09/10/17 14:00 09/11/17 06:23 A/P Assessment and Plan (1) C. difficile colitis ICD Code: A04.72 - Enterocolitis due to Clostridium difficile, not specified as recurrent Plan: Improving but not well controlled yet. asked for ID specialist consult, discussed with Doctor Kaylie Ramos, added Asacol, continue Vancomyicin 250 mg QID, Continue Questran TID. (2) UTI (urinary tract infection) ICD Code: N39.0 - Urinary tract infection, site not specified Status: Acute Plan: Urine culture grew E. coli S/P treatment with Rocephin (3) Respiratory Insufficiency Has Expiratory wheezing, started on Duoneb treatment, Mucinex and Incentive spirometry, Oxygen as needed. asked for CXR and BNP 18 no CHF. continue present care. (4) AICD (automatic cardioverter/defibrillator) present ICD Code: Z95.810 - AICD (automatic cardioverter/defibrillator) present Status: Acute as per patient she has Cardiomyopathy but as per FRANCIS performed here on 09/05/17 did not found pathology following BNP and CXR (5)Deconditioning as per PT specialist will go to Rehab. DVT prophylaxis with SCDs and Heparin Discharge Planning Once cleared by Specialists. Efrain Huber MD Sep 11, 2017 09:05
[2017-09-11 09:17] LABS: AUTOMATED NEUTROPHIL # 9.7 TH/MM3 (1.8-7.7); BASOPHIL % 0.3 % (0.0-2.0); EOSINOPHIL # 0.3 TH/MM3 (0-0.4); EOSINOPHIL % 2.5 % (0.0-4.0); HEMATOCRIT 45.7 % (35.0-46.0); HEMOGLOBIN 15.2 GM/DL (11.6-15.3); LYMPH % 14.4 % (9.0-44.0); LYMPHOCYTE # 1.8 TH/MM3 (1.0-4.8); MEAN CELL VOLUME 96.6 FL (80.0-100.0); MEAN CORPUSCULAR HEMOGLOBIN 32.2 PG (27.0-34.0); MEAN CORPUSCULAR HGB CONC 33.3 % (32.0-36.0); MEAN PLATELET VOLUME 7.7 FL (7.0-11.0); MONO % 5.9 % (0.0-8.0); MONOCYTE # 0.7 TH/MM3 (0-0.9); NEUT % 76.9 % (16.0-70.0); PLATELET COUNT 137 TH/MM3 (150-450); RED BLOOD COUNT 4.73 MIL/MM3 (4.00-5.30); RED CELL DISTRIBUTION WIDTH 15.4 % (11.6-17.2); WHITE BLOOD COUNT 12.6 TH/MM3 (4.0-11.0)
[2017-09-11 09:43] LABS: BICARBONATE 20.1 MEQ/L (21.0-32.0); CALCIUM 7.8 MG/DL (8.5-10.1); CREATININE 0.64 MG/DL (0.50-1.00)
[2017-09-11] MEDS: DOCUSATE SODIUM 50 MG/SENNA 8.6 MG TAB PO SCH ×2 (10:15→21:00)
[2017-09-11] MEDS: guaiFENesin E.R. 600 MG TAB PO SCH ×2 (10:15→21:00)
[2017-09-11] MEDS: METOPROLOL TARTRATE 50 MG TAB PO SCH (10:15)
[2017-09-11] MEDS: SODIUM CHLORIDE 0.9% FLUSH 10 ML FLUSH IV FLUSH SCH ×2 (10:15→21:00)
[2017-09-11] MEDS: PANTOPRAZOLE SOD 20 MG DELAYED RELEASE TAB PO SCH (10:15)
[2017-09-11] MEDS: CITALOPRAM HYDROBROMIDE 40 MG TAB PO SCH (10:15)
[2017-09-11] MEDS: TOPIRAMATE 25 MG TAB PO SCH (10:15)
[2017-09-11] MEDS: VANCOMYCIN 500 MG VIAL (FOR ORAL USE ONLY) PO SCH ×4 (10:16→21:00)
--- NOTE | 2017-09-11 11:38 | PD.CONS ---
History of Present Illness Service Infectious disease Consult Requested By Dr Gordon Reason for Consult Evaluate patient with C. difficile colitis, not improving Primary Care Physician Babar Aparicio MD Diagnoses: History of Present Illness Patient seen and examined. Records reviewed. Patient is an 82-year-old female, presented to the hospital complaining of 6 day history of diarrhea. The diarrhea was associated with diffuse abdominal pain, and decreased p.o. intake. There is been no nausea or vomiting, and no fever or chills. On presentation, her white count was 21,000. Stool for C. difficile came back positive. CT of abdomen and pelvis showed evidence of colitis. GI evaluated the patient also. Patient was put on vancomycin. Her stools started improving, but overnight she started having loose stools again. She is complaining of abdominal pain in the lower region. Patient stated that her diet has been increased, and she has had increased p.o. intake. She also complained of some heartburn, and has the need to burp. Has not been febrile. Her white count has been improving. Infectious disease consultation has been requested to evaluate the patient. Review of Systems Constitutional: COMPLAINS OF: Change in appetite, DENIES: Fever, Chills Eyes: DENIES: Eye pain Ears, nose, mouth, throat: DENIES: Nasal discharge, Oral lesions, Ear Pain, Sinus Pain Respiratory: DENIES: Cough, Shortness of breath Cardiovascular: DENIES: Chest pain, Palpitations, Dyspnea on Exertion, Lower Extremity Edema Gastrointestinal: COMPLAINS OF: Abdominal pain, Diarrhea, DENIES: Nausea, Vomiting, Difficulty Swallowing Genitourinary: DENIES: Urgency, Dysuria Musculoskeletal: DENIES: Joint pain, Joint Swelling Integumentary: DENIES: Rash Hematologic/lymphatic: DENIES: Lymphadenopathy Neurologic: DENIES: Localized weakness Psychiatric: DENIES: Hallucinations Past Family Social History Allergies: Coded Allergies: codeine (Unverified Allergy, Severe, Nausea/Vomiting, 01/05/17) ciprofloxacin (Verified Allergy, Intermediate, Rash, 09/03/17) Rash with itching when given intravenously Past Medical History Hypertension GERD Chronic UTI. Hyperlipidemia. Depression. Osteoporosis. arthritis. Breast cancer status post mastectomy. Past Surgical History Mastectomy. AICD. Cardiac catheterization. Right total hip arthroplasty. Dupuytren's release in both hands. Active Ordered Medications Current Medications Medications (Trade) Dose Ordered Sig/Dianne Route Start Time Stop Time Status Last Admin (NS Flush) 2 ml UNSCH PRN IV FLUSH 09/03/17 15:45 (NS Flush) 2 ml BID IV FLUSH 09/03/17 21:00 09/11/17 10:15 (Tylenol) 650 mg Q4H PRN PO 09/03/17 15:45 (Zofran Inj) 4 mg Q6H PRN IVP 09/03/17 15:45 09/04/17 01:56 (Lovenox Inj) 40 mg Q24H SQ 09/03/17 17:00 Future Hold 09/04/17 16:14 (Narcan Inj) 0.4 mg UNSCH PRN IV PUSH 09/03/17 15:45 (Allison-Colace) 1 tab BID PO 09/03/17 21:00 09/11/17 10:15 (Milk Of Magnesia Liq) 30 ml Q12H PRN PO 09/03/17 15:45 (Senokot) 17.2 mg Q12H PRN PO 09/03/17 15:45 (Dulcolax Supp) 10 mg DAILY PRN RECTAL 09/03/17 15:45 (Lactulose Liq) 30 ml DAILY PRN PO 09/03/17 15:45 (Lipitor) 20 mg HS PO 09/04/17 21:00 09/10/17 21:46 (CeleXA) 40 mg DAILY PO 09/05/17 09:00 09/11/17 10:15 (Ativan) 0.5 mg Q6H PRN PO 09/04/17 15:00 09/11/17 06:24 (Lopressor) 50 mg DAILY PO 09/04/17 15:00 09/11/17 10:15 (Topamax) 25 mg DAILY PO 09/04/17 15:00 09/11/17 10:15 (Ultram) 50 mg Q6H PRN PO 09/04/17 15:00 09/11/17 06:24 (Protonix) 20 mg DAILY PO 09/05/17 09:00 09/11/17 10:15 (VANCOMYCIN for oral use only) 250 mg QID PO 09/05/17 18:00 09/11/17 10:16 (Duoneb Neb) 1 ampule Q4HR NEB NEB 09/09/17 12:00 09/10/17 20:07 (Mucinex Er) 600 mg BID PO 09/09/17 09:00 09/11/17 10:15 (Heparin Inj) 5,000 units Q8HR SQ 09/10/17 14:00 09/11/17 06:23 (Asacol Hd Dr) 1,600 mg Q8HR PO 09/11/17 14:00 Family History Noncontributory Social History Lives alone, walks with a walker No smoking No alcohol abuse No illicit drugs Physical Exam Vital Signs Vital Signs Date Time Temp Pulse Resp B/P (MAP) Pulse Ox O2 Delivery O2 Flow Rate FiO2 09/11/17 08:00 97.7 93 20 119/58 (78) 93 09/11/17 08:00 54 09/11/17 04:00 Nasal Cannula 2.00 09/11/17 04:00 97.9 85 20 142/75 (97) 96 09/11/17 03:43 61 09/11/17 00:00 Nasal Cannula 2.00 09/11/17 00:00 98.2 89 20 147/70 (95) 96 09/10/17 23:43 71 09/10/17 20:10 95 Nasal Cannula 2.00 09/10/17 20:00 Nasal Cannula 2.00 09/10/17 20:00 98.1 70 20 136/64 (88) 96 09/10/17 19:43 70 09/10/17 16:00 Room Air 09/10/17 16:00 98.0 69 20 132/63 (86) 94 09/10/17 16:00 69 09/10/17 12:00 75 09/10/17 12:00 97.8 97 22 132/61 (84) 95 09/10/17 11:55 Nasal Cannula 2.00 Humidified Physical Exam GENERAL: Patient is a well-nourished, well-developed female, awake and alert , not in respiratory distress. SKIN: Warm and dry. No generalized rash, no ecchymoses and no evidence of embolic lesions. HEAD: Atraumatic. Normocephalic. No temporal wasting, or tenderness. EYES: Virgil conjunctiva. No petechia or hemorrhage. Pupils equal, round and reactive to light. Extraocular movements full and intact. No scleral icterus. No injection or drainage. EARS, NOSE AND THROAT: Nose without bleeding or purulent nasal discharge. No sinus tenderness. Mucous membranes pink and moist. No oral lesions noted. NECK: Trachea midline. Supple and not tender, no meningeal signs CARDIOVASCULAR: Regular rate and rhythm. No murmurs, rubs or gallops heard RESPIRATORY: Clear to auscultation. Breath sounds equal bilaterally. No rales , wheezing or rhonchi ABDOMEN: Soft, mildly tender, nondistended. Bowel sounds present and normoactive. No guarding. No rebound. No organomegaly. EXTREMITIES: No clubbing, cyanosis, or edema. No joint effusion, has good ROM. No calf tenderness. Well perfused and warm. Has some brownish pigmentation in both legs NEUROLOGICAL: Awake and alert. Cranial nerves grossly intact. Motor grossly within normal limits. PSYCHIATRIC: Normal affect, calm and cooperative. LINE: No evidence of infection Laboratory Laboratory Tests Test 09/10/17 12:00 09/11/17 07:33 B-Type Natriuretic Peptide 18 White Blood Count 12.6 Red Blood Count 4.73 Hemoglobin 15.2 Hematocrit 45.7 Mean Corpuscular Volume 96.6 Mean Corpuscular Hemoglobin 32.2 Mean Corpuscular Hemoglobin Concent 33.3 Red Cell Distribution Width 15.4 Platelet Count 137 Mean Platelet Volume 7.7 Neutrophils (%) (Auto) 76.9 Lymphocytes (%) (Auto) 14.4 Monocytes (%) (Auto) 5.9 Eosinophils (%) (Auto) 2.5 Basophils (%) (Auto) 0.3 Neutrophils # (Auto) 9.7 Lymphocytes # (Auto) 1.8 Monocytes # (Auto) 0.7 Eosinophils # (Auto) 0.3 Basophils # (Auto) 0.0 CBC Comment DIFF FINAL Differential Comment Blood Urea Nitrogen 15 Creatinine 0.64 Random Glucose 142 Calcium Level 7.8 Sodium Level 137 Potassium Level 4.4 Chloride Level 107 Carbon Dioxide Level 20.1 Anion Gap 10 Estimat Glomerular Filtration Rate 89 Date/Time Source Procedure Growth Status 09/03/17 14:45 Blood Peripheral Aerobic Blood Culture - Final NO GROWTH IN 5 DAYS Complete 09/03/17 14:45 Blood Peripheral Anaerobic Blood Culture - Final NO GROWTH IN 5 DAYS Complete 09/04/17 10:30 Stool Stool - Final NO ENTERIC PATHOGENS DETECTED BY PCR... Complete 09/03/17 13:50 Urine Catheterized Urine Urine Culture - Final Escherichia Coli Complete Result Diagram: 09/11/17 0733 09/11/17 0733 Imaging RADIOLOGY STUDIES/FILMS REVIEWED Last Impressions Chest X-Ray 09/10/17 0000 Signed Impressions: Service Date/Time: Sunday, September 10, 2017 10:48 - CONCLUSION: 1. Hazy opacity at the left lung base with partial obscuration of the left hemidiaphragm and possible blunting of the costophrenic angle. This could represent infiltrate and/or effusion. Deion Colon MD Abdomen/Pelvis CT 09/03/17 0000 Signed Impressions: Service Date/Time: Sunday, September 03, 2017 14:24 - CONCLUSION: Scan appearance consistent with colitis Ridge Chopra MD Assessment and Plan Assessment and Plan IMPRESSION C difficile colitis, has been showing improvement with some formed stools and improving leukocytosis, has developed worsening of her diarrhea again overnight. - Patient has had increased p.o. intake, and this could have a big effect on the worsening of her stools. Leukocytosis, improving RECOMMENDATION Continue p.o. vancomycin Will try asacol to help decrease the number of stools Follow her diarrhea Follow CBC Monitor progress I will make further recommendation depending on the response to the current change in treatment I will follow along with you Thank you for this consultation Kaylie Ramos MD Sep 11, 2017 11:37
[2017-09-11] MEDS: MESALAMINE HD 800 MG DELAYED RELEASE TAB PO SCH ×2 (14:00→21:00)
[2017-09-11] MEDS: ATORVASTATIN 20 MG TAB PO SCH (20:59)
[2017-09-12] VITALS (10 sets, daily range): BP systolic 112–128; BP diastolic 60–71; PULSE 52–98; RESP 19–24; TEMP 97.6–98.2; O2SAT 93–96
[2017-09-12] MEDS: RESP: ALBUTEROL 2.5 MG/IPRATROPIUM 0.5 MG NEB (SCH) NEB ×6 (03:55→23:24)
[2017-09-12] MEDS: MESALAMINE HD 800 MG DELAYED RELEASE TAB PO SCH ×3 (06:27→21:47)
[2017-09-12] MEDS: HEPARIN SODIUM - SQ 10,000 UNITS/ML VIAL SQ SCH ×3 (06:28→21:48)
[2017-09-12] MEDS: traMADol HCL 50 MG TAB PO PRN ×2 (06:28→18:11)
[2017-09-12] MEDS: LORazepam 0.5 MG TAB PO PRN ×2 (06:28→18:10)
[2017-09-12] MEDS: DOCUSATE SODIUM 50 MG/SENNA 8.6 MG TAB PO SCH ×2 (09:00→21:00)
[2017-09-12] MEDS: VANCOMYCIN 500 MG VIAL (FOR ORAL USE ONLY) PO SCH ×4 (09:25→21:47)
[2017-09-12] MEDS: TOPIRAMATE 25 MG TAB PO SCH (09:27)
[2017-09-12] MEDS: PANTOPRAZOLE SOD 20 MG DELAYED RELEASE TAB PO SCH (09:27)
[2017-09-12] MEDS: guaiFENesin E.R. 600 MG TAB PO SCH ×2 (09:27→21:47)
[2017-09-12] MEDS: SODIUM CHLORIDE 0.9% FLUSH 10 ML FLUSH IV FLUSH SCH ×2 (09:27→21:49)
[2017-09-12] MEDS: CITALOPRAM HYDROBROMIDE 40 MG TAB PO SCH (09:27)
[2017-09-12] MEDS: METOPROLOL TARTRATE 50 MG TAB PO SCH (09:27)
--- NOTE | 2017-09-12 12:40 | HHI.PR ---
Subjective Remarks This is an 82-year-old female who came to Diarrhea, she has Hypertension, GERD , Chronic UTI, Hyperlipidemia Depression, admitted with diagnosis of Colitis, UTI, INA, CT showed colitis, recommended by GI specialist to continue By mouth Vancomycin for C Diff Colitis. Shortness of breath started on Duoneb treatment, Mucinex and Incentive spirometry. she states she also has CHF but no signs of Cardiac dysfunction at this time will follow. continue with Diarrhea, not feeling well. 09/10: patient improving Diarrhea, only one BM from yesterday night, also she states she is feeling well she has Cardiomyopathy, and will get BNP and Chest X ray now and follow. laboratory in am tomorrow, GI specialist following, continue Vancomycin by mouth. 09/11: The patient had seven BMs yesterday asked for ID specialist consult, She is not improving. discussed with Doctor Kaylie Ramos ID specialist, states perhaps the increase in patient oral intake may be associated with the increased Bowel movements, recommended to continue Vancomycin by mouth and added Asacol, 09/12: Discussed with patient, nurse and MDR, if okay by ID specialist will discharge home today, she is improving today and will go to rehab. no nausea, vomit or diarrhea. Objective Vital Signs Date Time Temp Pulse Resp B/P (MAP) Pulse Ox O2 Delivery O2 Flow Rate FiO2 09/12/17 11:13 94 Nasal Cannula 2.00 09/12/17 08:00 97.6 98 24 124/71 (88) 94 09/12/17 07:39 18 09/12/17 04:00 98.0 67 20 119/65 (83) 96 09/12/17 04:00 Nasal Cannula 2.00 09/12/17 03:43 87 09/12/17 00:00 98.1 67 19 120/60 (80) 93 09/12/17 00:00 Nasal Cannula 2.00 09/12/17 00:00 52 09/11/17 20:00 97.9 71 17 118/56 (76) 94 09/11/17 20:00 Nasal Cannula 2.00 09/11/17 19:46 69 09/11/17 19:41 95 Nasal Cannula 2.00 09/11/17 18:00 97.8 71 20 117/65 (82) 93 09/11/17 16:00 69 I/O 09/11/17 09/11/17 09/11/17 09/12/17 09/12/17 09/12/17 07:00 15:00 23:00 07:00 15:00 23:00 Intake Total 240 ml 675 ml Balance 240 ml 675 ml Intake Oral 240 ml 675 ml # Voids 3 4 # Bowel Movements 3 2 Result Diagram: 09/11/17 0733 09/11/17 0733 Imaging Last Impressions Chest X-Ray 09/10/17 0000 Signed Impressions: Service Date/Time: Sunday, September 10, 2017 10:48 - CONCLUSION: 1. Hazy opacity at the left lung base with partial obscuration of the left hemidiaphragm and possible blunting of the costophrenic angle. This could represent infiltrate and/or effusion. Deion Colon MD Abdomen/Pelvis CT 09/03/17 0000 Signed Impressions: Service Date/Time: Sunday, September 03, 2017 14:24 - CONCLUSION: Scan appearance consistent with colitis Ridge Chopra MD Procedures None Other Results Laboratory Tests Test 09/03/17 13:15 09/03/17 13:50 09/04/17 04:40 09/04/17 10:30 Differential Total Cells Counted 100 Neutrophils % (Manual) 37 % Band Neutrophils % 36 % Lymphocytes % 12 % Monocytes % 15 % Neutrophils # (Manual) 10.1 TH/MM3 Toxic Granulation 1+ Toxic Vacuolation PRESENT Platelet Estimate NORMAL Platelet Morphology Comment NORMAL Lactic Acid Level 1.0 mmol/L Lipase 357 U/L Urine Color YELLOW Urine Turbidity HAZY Urine pH 5.5 Urine Specific [place] 1.023 Urine Protein TRACE mg/dL Urine Glucose (UA) NEG mg/dL Urine Ketones NEG mg/dL Urine Occult Blood NEG Urine Nitrite POS Urine Bilirubin NEG Urine Urobilinogen LESS THAN 2.0 MG/DL Urine Leukocyte Esterase LARGE Urine RBC 3 /hpf Urine WBC 29 /hpf Urine WBC Clumps FEW Urine Squamous Epithelial Cells 4 /hpf Urine Transitional Epithelial Cells <1 /hpf Urine Bacteria MANY /hpf Urine Hyaline Casts 11 /lpf Urine Mucus MOD /lpf Microscopic Urinalysis Comment CATH-CULTURE IND Blood Urea Nitrogen 26 MG/DL Creatinine 1.20 MG/DL Random Glucose 156 MG/DL Total Protein 4.9 GM/DL Albumin 2.1 GM/DL Calcium Level 8.0 MG/DL Alkaline Phosphatase 53 U/L Aspartate Amino Transf (AST/SGOT) 17 U/L Alanine Aminotransferase (ALT/SGPT) 19 U/L Total Bilirubin 1.5 MG/DL Sodium Level 138 MEQ/L Potassium Level 3.6 MEQ/L Chloride Level 110 MEQ/L Carbon Dioxide Level 21.0 MEQ/L Eosinophil Stool Smear NONE SEEN /HPF Stool C. difficile Toxin (PCR) POSITIVE Stl C. difficile Toxin Epiderm 027 PRESUMPTIVE POSITIVE Test 09/06/17 07:16 09/08/17 08:25 09/10/17 12:00 09/11/17 07:33 Blood Urea Nitrogen 38 MG/DL 26 MG/DL 15 MG/DL Creatinine 1.17 MG/DL 0.68 MG/DL 0.64 MG/DL Random Glucose 131 MG/DL 133 MG/DL 142 MG/DL Calcium Level 7.6 MG/DL 7.4 MG/DL 7.8 MG/DL Magnesium Level 2.2 MG/DL Sodium Level 137 MEQ/L 138 MEQ/L 137 MEQ/L Potassium Level 4.1 MEQ/L 5.0 MEQ/L 4.4 MEQ/L Chloride Level 111 MEQ/L 113 MEQ/L 107 MEQ/L Carbon Dioxide Level 18.9 MEQ/L 17.9 MEQ/L 20.1 MEQ/L Protein Corrected Calcium 9.0 MG/DL Total Protein 4.4 GM/DL B-Type Natriuretic Peptide 18 PG/ML White Blood Count 12.6 TH/MM3 Red Blood Count 4.73 MIL/MM3 Hemoglobin 15.2 GM/DL Hematocrit 45.7 % Mean Corpuscular Volume 96.6 FL Mean Corpuscular Hemoglobin 32.2 PG Mean Corpuscular Hemoglobin Concent 33.3 % Red Cell Distribution Width 15.4 % Platelet Count 137 TH/MM3 Mean Platelet Volume 7.7 FL Neutrophils (%) (Auto) 76.9 % Lymphocytes (%) (Auto) 14.4 % Monocytes (%) (Auto) 5.9 % Eosinophils (%) (Auto) 2.5 % Basophils (%) (Auto) 0.3 % Neutrophils # (Auto) 9.7 TH/MM3 Lymphocytes # (Auto) 1.8 TH/MM3 Monocytes # (Auto) 0.7 TH/MM3 Eosinophils # (Auto) 0.3 TH/MM3 Basophils # (Auto) 0.0 TH/MM3 CBC Comment DIFF FINAL Differential Comment Anion Gap 10 MEQ/L Estimat Glomerular Filtration Rate 89 ML/MIN Objective Remarks GENERAL: This is a well-nourished, well-developed patient, in no apparent distress. CARDIOVASCULAR: Normal rate and regular rhythm without murmurs, gallops, or rubs. RESPIRATORY: Decreased breath sounds bilateral, with mild to moderate expiratory wheezing. GASTROINTESTINAL: Abdomen soft, diffuse mild tenderness to palpation. Hyperactive bowel sounds MUSCULOSKELETAL: Extremities without cyanosis, or edema. NEURO: Alert & Oriented x4 to person, place, time, situation. Moves all ext x4 PSYCH: Appropriate mood and affect. Medications and IVs Current Medications Medications (Trade) Dose Ordered Sig/Dianne Route Start Time Stop Time Status Last Admin (NS Flush) 2 ml UNSCH PRN IV FLUSH 09/03/17 15:45 (NS Flush) 2 ml BID IV FLUSH 09/03/17 21:00 09/12/17 09:27 (Tylenol) 650 mg Q4H PRN PO 09/03/17 15:45 (Zofran Inj) 4 mg Q6H PRN IVP 09/03/17 15:45 09/04/17 01:56 (Lovenox Inj) 40 mg Q24H SQ 09/03/17 17:00 Future Hold 09/04/17 16:14 (Narcan Inj) 0.4 mg UNSCH PRN IV PUSH 09/03/17 15:45 (Allison-Colace) 1 tab BID PO 09/03/17 21:00 09/11/17 10:15 (Milk Of Magnesia Liq) 30 ml Q12H PRN PO 09/03/17 15:45 (Senokot) 17.2 mg Q12H PRN PO 09/03/17 15:45 (Dulcolax Supp) 10 mg DAILY PRN RECTAL 09/03/17 15:45 (Lactulose Liq) 30 ml DAILY PRN PO 09/03/17 15:45 (Lipitor) 20 mg HS PO 09/04/17 21:00 09/11/17 20:59 (CeleXA) 40 mg DAILY PO 09/05/17 09:00 09/12/17 09:27 (Ativan) 0.5 mg Q6H PRN PO 09/04/17 15:00 09/12/17 06:28 (Lopressor) 50 mg DAILY PO 09/04/17 15:00 09/12/17 09:27 (Topamax) 25 mg DAILY PO 09/04/17 15:00 09/12/17 09:27 (Ultram) 50 mg Q6H PRN PO 09/04/17 15:00 09/12/17 06:28 (Protonix) 20 mg DAILY PO 09/05/17 09:00 09/12/17 09:27 (VANCOMYCIN for oral use only) 250 mg QID PO 09/05/17 18:00 09/12/17 09:25 (Duoneb Neb) 1 ampule Q4HR NEB NEB 09/09/17 12:00 09/12/17 03:55 (Mucinex Er) 600 mg BID PO 09/09/17 09:00 09/12/17 09:27 (Heparin Inj) 5,000 units Q8HR SQ 09/10/17 14:00 09/12/17 06:28 (Asacol Hd Dr) 1,600 mg Q8HR PO 09/11/17 14:00 09/12/17 06:27 A/P Assessment and Plan (1) C. difficile colitis ICD Code: A04.72 - Enterocolitis due to Clostridium difficile, not specified as recurrent Plan: Improving but not well controlled yet. asked for ID specialist consult, discussed with Doctor Kaylie Ramos, added Asacol, continue Vancomyicin 250 mg QID, Continue Questran TID. (2) UTI (urinary tract infection) ICD Code: N39.0 - Urinary tract infection, site not specified Status: Acute Plan: Urine culture grew E. coli S/P treatment with Rocephin (3) Respiratory Insufficiency Has Expiratory wheezing, started on Duoneb treatment, Mucinex and Incentive spirometry, Oxygen as needed. asked for CXR and BNP 18 no CHF. continue present care. (4) AICD (automatic cardioverter/defibrillator) present ICD Code: Z95.810 - AICD (automatic cardioverter/defibrillator) present Status: Acute as per patient she has Cardiomyopathy but as per FRANCIS performed here on 09/05/17 did not found pathology following BNP and CXR (5)Deconditioning as per PT specialist will go to Rehab. No changes to anterior assessment. DVT prophylaxis with SCDs and Heparin Discharge Planning Once cleared by Specialists. Efrain Huber MD Sep 12, 2017 12:40
--- NOTE | 2017-09-12 15:03 | HHI.IDPN ---
Subjective Subjective Remarks Patient is an 82-year-old female, presented to the hospital complaining of 6 day history of diarrhea. The diarrhea was associated with diffuse abdominal pain, and decreased p.o. intake. There is been no nausea or vomiting, and no fever or chills. On presentation, her white count was 21,000. Stool for C. difficile came back positive. CT of abdomen and pelvis showed evidence of colitis. GI evaluated the patient also. Patient was put on vancomycin. Her stools started improving, but overnight she started having loose stools again. She is complaining of abdominal pain in the lower region. Patient stated that her diet has been increased, and she has had increased p.o. intake. She also complained of some heartburn, and has the need to burp. Has not been febrile. Her white count has been improving. Infectious disease consultation has been requested to evaluate the patient. Notes reviewed Stools are better Patient feels better Antibiotics Oral Vanco Asacol Current Medications Medications (Trade) Dose Ordered Sig/Dianne Route Start Time Stop Time Status Last Admin (NS Flush) 2 ml UNSCH PRN IV FLUSH 09/03/17 15:45 (NS Flush) 2 ml BID IV FLUSH 09/03/17 21:00 09/12/17 09:27 (Tylenol) 650 mg Q4H PRN PO 09/03/17 15:45 (Zofran Inj) 4 mg Q6H PRN IVP 09/03/17 15:45 09/04/17 01:56 (Lovenox Inj) 40 mg Q24H SQ 09/03/17 17:00 Future Hold 09/04/17 16:14 (Narcan Inj) 0.4 mg UNSCH PRN IV PUSH 09/03/17 15:45 (Allison-Colace) 1 tab BID PO 09/03/17 21:00 09/11/17 10:15 (Milk Of Magnesia Liq) 30 ml Q12H PRN PO 09/03/17 15:45 (Senokot) 17.2 mg Q12H PRN PO 09/03/17 15:45 (Dulcolax Supp) 10 mg DAILY PRN RECTAL 09/03/17 15:45 (Lactulose Liq) 30 ml DAILY PRN PO 09/03/17 15:45 (Lipitor) 20 mg HS PO 09/04/17 21:00 09/11/17 20:59 (CeleXA) 40 mg DAILY PO 09/05/17 09:00 09/12/17 09:27 (Ativan) 0.5 mg Q6H PRN PO 09/04/17 15:00 09/12/17 06:28 (Lopressor) 50 mg DAILY PO 09/04/17 15:00 09/12/17 09:27 (Topamax) 25 mg DAILY PO 09/04/17 15:00 09/12/17 09:27 (Ultram) 50 mg Q6H PRN PO 09/04/17 15:00 09/12/17 06:28 (Protonix) 20 mg DAILY PO 09/05/17 09:00 09/12/17 09:27 (VANCOMYCIN for oral use only) 250 mg QID PO 09/05/17 18:00 09/12/17 13:51 (Duoneb Neb) 1 ampule Q4HR NEB NEB 09/09/17 12:00 09/12/17 03:55 (Mucinex Er) 600 mg BID PO 09/09/17 09:00 09/12/17 09:27 (Heparin Inj) 5,000 units Q8HR SQ 09/10/17 14:00 09/12/17 13:53 (Asacol Hd ) 1,600 mg Q8HR PO 09/11/17 14:00 09/12/17 13:51 Lines PIV with no evidence of infection Past Medical History Hypertension GERD Chronic UTI. Hyperlipidemia. Depression. Osteoporosis. arthritis. Breast cancer status post mastectomy. Past Surgical History Mastectomy. AICD. Cardiac catheterization. Right total hip arthroplasty. Dupuytren's release in both hands. Allergies: Coded Allergies: codeine (Unverified Allergy, Severe, Nausea/Vomiting, 01/05/17) ciprofloxacin (Verified Allergy, Intermediate, Rash, 09/03/17) Rash with itching when given intravenously Objective . Vital Signs Date Time Temp Pulse Resp B/P (MAP) Pulse Ox O2 Delivery O2 Flow Rate FiO2 09/12/17 12:00 98.2 69 20 114/63 (80) 95 09/12/17 11:13 94 Nasal Cannula 2.00 09/12/17 08:00 97.6 98 24 124/71 (88) 94 09/12/17 07:39 18 09/12/17 04:00 98.0 67 20 119/65 (83) 96 09/12/17 04:00 Nasal Cannula 2.00 09/12/17 03:43 87 09/12/17 00:00 98.1 67 19 120/60 (80) 93 09/12/17 00:00 Nasal Cannula 2.00 09/12/17 00:00 52 09/11/17 20:00 97.9 71 17 118/56 (76) 94 09/11/17 20:00 Nasal Cannula 2.00 09/11/17 19:46 69 09/11/17 19:41 95 Nasal Cannula 2.00 09/11/17 18:00 97.8 71 20 117/65 (82) 93 09/11/17 16:00 69 09/12/17 09/12/17 09/13/17 15:00 23:00 07:00 Intake Total 480 ml Balance 480 ml Intake Oral 480 ml # Voids 2 # Bowel Movements 1 . Laboratory Tests Test 09/11/17 07:33 White Blood Count 12.6 TH/MM3 Red Blood Count 4.73 MIL/MM3 Hemoglobin 15.2 GM/DL Hematocrit 45.7 % Mean Corpuscular Volume 96.6 FL Mean Corpuscular Hemoglobin 32.2 PG Mean Corpuscular Hemoglobin Concent 33.3 % Red Cell Distribution Width 15.4 % Platelet Count 137 TH/MM3 Mean Platelet Volume 7.7 FL Neutrophils (%) (Auto) 76.9 % Lymphocytes (%) (Auto) 14.4 % Monocytes (%) (Auto) 5.9 % Eosinophils (%) (Auto) 2.5 % Basophils (%) (Auto) 0.3 % Neutrophils # (Auto) 9.7 TH/MM3 Lymphocytes # (Auto) 1.8 TH/MM3 Monocytes # (Auto) 0.7 TH/MM3 Eosinophils # (Auto) 0.3 TH/MM3 Basophils # (Auto) 0.0 TH/MM3 CBC Comment DIFF FINAL Differential Comment Laboratory Tests Test 09/11/17 07:33 Blood Urea Nitrogen 15 MG/DL Creatinine 0.64 MG/DL Random Glucose 142 MG/DL Calcium Level 7.8 MG/DL Sodium Level 137 MEQ/L Potassium Level 4.4 MEQ/L Chloride Level 107 MEQ/L Carbon Dioxide Level 20.1 MEQ/L Anion Gap 10 MEQ/L Estimat Glomerular Filtration Rate 89 ML/MIN Imaging Last Impressions Chest X-Ray 09/10/17 0000 Signed Impressions: Service Date/Time: Sunday, September 10, 2017 10:48 - CONCLUSION: 1. Hazy opacity at the left lung base with partial obscuration of the left hemidiaphragm and possible blunting of the costophrenic angle. This could represent infiltrate and/or effusion. Deion Colon MD Abdomen/Pelvis CT 09/03/17 0000 Signed Impressions: Service Date/Time: Sunday, September 03, 2017 14:24 - CONCLUSION: Scan appearance consistent with colitis Ridge Chopra MD Physical Exam GENERAL: awakens easily from sleep, not in respiratory distress. SKIN: Warm and dry. No generalized rash, no ecchymoses and no evidence of embolic lesions. HEAD: Atraumatic. Normocephalic. No temporal wasting, or tenderness. EYES: Nason conjunctiva. No petechia or hemorrhage. Pupils equal, round and reactive to light. Extraocular movements full and intact. No scleral icterus. No injection or drainage. EARS, NOSE AND THROAT: Nose without bleeding or purulent nasal discharge. No sinus tenderness. Mucous membranes pink and moist. No oral lesions noted. NECK: Trachea midline. Supple and not tender, no meningeal signs CARDIOVASCULAR: Regular rate and rhythm. No murmurs, rubs or gallops heard RESPIRATORY: Clear to auscultation. Breath sounds equal bilaterally. No rales , wheezing or rhonchi ABDOMEN: Soft, not tender, nondistended. Bowel sounds present and normoactive. No guarding. No rebound. No organomegaly. EXTREMITIES: No clubbing, cyanosis, or edema. No joint effusion, has good ROM. No calf tenderness. Well perfused and warm. Has some brownish pigmentation in both legs NEUROLOGICAL: Awakens easily from sleep. Cranial nerves grossly intact. Motor grossly within normal limits. PSYCHIATRIC: Normal affect, calm and cooperative. LINE: No evidence of infection Assessment & Plan Remarks IMPRESSION C difficile colitis, has been showing improvement with some formed stools and improving leukocytosis, has developed worsening of her diarrhea again overnight. - Patient has had increased p.o. intake, and this could have a big effect on the worsening of her stools. - better Leukocytosis, improving RECOMMENDATION Continue p.o. vancomycin give until september 23 Give 7 days asacol Monitor progress If better, ok to D/C tomorrow and complete Rx Kaylie Ramos MD Sep 12, 2017 15:03
[2017-09-12] MEDS: ATORVASTATIN 20 MG TAB PO SCH (21:47)
[2017-09-13] VITALS (8 sets, daily range): BP systolic 112–139; BP diastolic 53–64; PULSE 60–101; RESP 19–20; TEMP 97.4–98.2; O2SAT 92–98
[2017-09-13] MEDS: traMADol HCL 50 MG TAB PO PRN (00:17)
[2017-09-13] MEDS: LORazepam 0.5 MG TAB PO PRN (00:17)
[2017-09-13] MEDS: RESP: ALBUTEROL 2.5 MG/IPRATROPIUM 0.5 MG NEB (SCH) NEB ×3 (02:43→11:47)
[2017-09-13] MEDS: MESALAMINE HD 800 MG DELAYED RELEASE TAB PO SCH ×2 (06:11→14:15)
[2017-09-13] MEDS: HEPARIN SODIUM - SQ 10,000 UNITS/ML VIAL SQ SCH ×2 (06:12→14:15)
[2017-09-13] MEDS: PANTOPRAZOLE SOD 20 MG DELAYED RELEASE TAB PO SCH (08:30)
[2017-09-13] MEDS: TOPIRAMATE 25 MG TAB PO SCH (08:30)
[2017-09-13] MEDS: VANCOMYCIN 500 MG VIAL (FOR ORAL USE ONLY) PO SCH ×2 (08:30→14:15)
[2017-09-13] MEDS: METOPROLOL TARTRATE 50 MG TAB PO SCH (08:30)
[2017-09-13] MEDS: CITALOPRAM HYDROBROMIDE 40 MG TAB PO SCH (08:30)
[2017-09-13] MEDS: guaiFENesin E.R. 600 MG TAB PO SCH (08:30)
[2017-09-13] MEDS: SODIUM CHLORIDE 0.9% FLUSH 10 ML FLUSH IV FLUSH SCH (08:31)
[2017-09-13] MEDS: DOCUSATE SODIUM 50 MG/SENNA 8.6 MG TAB PO SCH (08:31)
--- NOTE | 2017-09-13 10:35 | HHI.PR ---
Subjective Remarks had loose stools last evening none so far since thisa am tolerating po well- no nuaea or vomiting Objective Vitals Vital Signs Date Time Temp Pulse Resp B/P (MAP) Pulse Ox O2 Delivery O2 Flow Rate FiO2 09/13/17 08:17 93 Nasal Cannula 2.00 09/13/17 08:15 Nasal Cannula 2.00 Humidified 09/13/17 08:00 97.9 99 20 132/64 (86) 93 09/13/17 04:00 Nasal Cannula 2.00 09/13/17 04:00 97.4 101 19 116/58 (77) 92 09/13/17 03:49 93 09/13/17 00:00 97.6 89 20 139/57 (84) 98 09/13/17 00:00 Nasal Cannula 2.00 09/12/17 23:48 53 09/12/17 20:00 Nasal Cannula 2.00 09/12/17 20:00 98.0 97 19 128/61 (83) 95 09/12/17 19:49 90 09/12/17 19:37 93 Nasal Cannula 2.00 09/12/17 16:00 98.2 70 20 112/62 (79) 95 09/12/17 12:00 98.2 69 20 114/63 (80) 95 09/12/17 11:13 94 Nasal Cannula 2.00 I/O 09/12/17 09/12/17 09/12/17 09/13/17 09/13/17 09/13/17 07:00 15:00 23:00 07:00 15:00 23:00 Intake Total 675 ml 480 ml 340 ml Balance 675 ml 480 ml 340 ml Intake Oral 675 ml 480 ml 340 ml # Voids 4 2 2 4 # Bowel Movements 2 1 1 3 Result Diagram: 09/11/17 0733 09/11/17 0733 Imaging Last Impressions Chest X-Ray 09/10/17 0000 Signed Impressions: Service Date/Time: Sunday, September 10, 2017 10:48 - CONCLUSION: 1. Hazy opacity at the left lung base with partial obscuration of the left hemidiaphragm and possible blunting of the costophrenic angle. This could represent infiltrate and/or effusion. Deion Colon MD Abdomen/Pelvis CT 09/03/17 0000 Signed Impressions: Service Date/Time: Sunday, September 03, 2017 14:24 - CONCLUSION: Scan appearance consistent with colitis Ridge Chopra MD Objective Remarks awake and alert, no distress anicteric lungs- no rales regular rhythm abdomen-soft, good bowel sounds, non tender, no guarding extremities no edmea, no calf tenderness neuro exam- non focal Procedures 09/05- FRANCIS A/P Problem List: (1) C. difficile colitis ICD Code: A04.72 - Enterocolitis due to Clostridium difficile, not specified as recurrent (2) UTI (urinary tract infection) ICD Code: N39.0 - Urinary tract infection, site not specified Status: Acute (3) INA (acute kidney injury) ICD Code: N17.9 - Acute kidney failure, unspecified Status: Acute (4) Bandemia ICD Code: D72.825 - Bandemia Status: Acute (5) AICD (automatic cardioverter/defibrillator) present ICD Code: Z95.810 - AICD (automatic cardioverter/defibrillator) present Status: Acute (6) Diarrhea ICD Code: R19.7 - Diarrhea, unspecified Assessment and Plan 82 years old female (1) C. difficile colitis ICD Code: A04.72 - Enterocolitis due to Clostridium difficile, not specified as recurrent Plan: Improving but not well controlled yet. ID [id number]- Started Asacol for total 7 days , continue Vancomyicin 250 mg QID till 5/4 renal functions normal (2) UTI (urinary tract infection) ICD Code: N39.0 - Urinary tract infection, site not specified Status: Acute Plan: Urine culture grew E. coli S/P treatment with Rocephin (3) Respiratory Insufficiency Has Expiratory wheezing, started on Duoneb treatment, Mucinex and Incentive spirometry, Oxygen as needed. asked for CXR and BNP 18 no CHF. continue present care. (4) AICD (automatic cardioverter/defibrillator) present ICD Code: Z95.810 - AICD (automatic cardioverter/defibrillator) present Status: Acute as per patient she has Cardiomyopathy but as per FRANCIS performed here on 09/05/17 did not found pathology (5)Deconditioning as per PT specialist will go to Rehab. - accepted at [facility] (6) Acute Kidney injury- from C diff- resolved D/w that she will be closely monitored in Rehab and will get more physical therapy there DVT prophylaxis with SCDs and Heparin Problem Qualifiers (1) UTI (urinary tract infection): Qualified Codes: N30.00 - Acute cystitis without hematuria Len Garcia MD Sep 13, 2017 10:35
[2017-09-13] MEDS ORDERED: VANC500I3 PO (10:42)
[2017-09-13] MEDS ORDERED: MESA1TAB2 PO (10:42)
--- NOTE | 2017-09-13 10:49 | HHI.DS ---
Discharge Summary Admission Date Sep 03, 2017 at 15:34 Discharge Date: Sep 13, 2017 Admitting Diagnosis Colitis, UTI, leukocytosis with bandemia (1) C. difficile colitis ICD Code: A04.72 - Enterocolitis due to Clostridium difficile, not specified as recurrent Diagnosis: Principal (2) UTI (urinary tract infection) ICD Code: N39.0 - Urinary tract infection, site not specified Diagnosis: Secondary Status: Acute (3) INA (acute kidney injury) ICD Code: N17.9 - Acute kidney failure, unspecified Diagnosis: Secondary Status: Acute (4) Bandemia ICD Code: D72.825 - Bandemia Diagnosis: Secondary Status: Acute (5) AICD (automatic cardioverter/defibrillator) present ICD Code: Z95.810 - AICD (automatic cardioverter/defibrillator) present Diagnosis: Secondary Status: Acute Procedures 09/05- FRANCIS Brief History - From Admission This is an 82-year-old female with extensive past medical history as stated below who presents to [facility] complaining of diarrhea. The patient states that she developed diarrhea last Tuesday and the diarrhea has been constant. The patient complains of diffuse abdominal pain, constant, nonradiating, more localized over the left side of the abdomen. The patient also states she has had decreased appetite and decreased oral intake. The patient states she has been seen by Dr. Walls who gave her an antibiotic and also Imodium. However the patient continued to have diarrhea. The patient denies fevers or chills, patient states at times she had intermittent abdominal pain and cramping. Patient denies nausea vomiting or diarrhea. The patient denies any recent travel, sick contacts or history of C. difficile. CBC/BMP: 09/11/17 0733 09/11/17 0733 Significant Findings Laboratory Tests Test 09/10/17 12:00 09/11/17 07:33 White Blood Count 12.6 TH/MM3 (4.0-11.0) Platelet Count 137 TH/MM3 (150-450) Neutrophils (%) (Auto) 76.9 % (16.0-70.0) Neutrophils # (Auto) 9.7 TH/MM3 (1.8-7.7) Random Glucose 142 MG/DL (74-106) Calcium Level 7.8 MG/DL (8.5-10.1) Carbon Dioxide Level 20.1 MEQ/L (21.0-32.0) Imaging Last Impressions Chest X-Ray 09/10/17 0000 Signed Impressions: Service Date/Time: Sunday, September 10, 2017 10:48 - CONCLUSION: 1. Hazy opacity at the left lung base with partial obscuration of the left hemidiaphragm and possible blunting of the costophrenic angle. This could represent infiltrate and/or effusion. Deion Colon MD Abdomen/Pelvis CT 09/03/17 0000 Signed Impressions: Service Date/Time: Sunday, September 03, 2017 14:24 - CONCLUSION: Scan appearance consistent with colitis Ridge Chopra MD PE at Discharge awake and alert, no distress anicteric lungs- no rales regular rhythm abdomen-soft, good bowel sounds, non tender, no guarding extremities no edmea, no calf tenderness neuro exam- non focal Pt update on day of discharge awake and alert, no complains of abdominal pain,N/V, soft formed stools Hospital Course 82 years old female (1) C. difficile colitis ICD Code: A04.72 - Enterocolitis due to Clostridium difficile, not specified as recurrent Plan: Improving but not well controlled yet. ID [id number]- Started Asacol for total 7 days , continue Vancomyicin 250 mg QID till 5/4 renal functions normal (2) UTI (urinary tract infection) ICD Code: N39.0 - Urinary tract infection, site not specified Status: Acute Plan: Urine culture grew E. coli S/P treatment with Rocephin (3) Respiratory Insufficiency Has Expiratory wheezing, started on Duoneb treatment, Mucinex and Incentive spirometry, Oxygen as needed. asked for CXR and BNP 18 no CHF. continue present care. (4) AICD (automatic cardioverter/defibrillator) present ICD Code: Z95.810 - AICD (automatic cardioverter/defibrillator) present Status: Acute as per patient she has Cardiomyopathy but as per FRANCIS performed here on 09/05/17 did not found pathology (5)Deconditioning as per PT specialist will go to Rehab. - accepted at [facility] (6) Acute Kidney injury- from C diff- resolved D/w that she will be closely monitored in Rehab and will get more physical therapy there DVT prophylaxis with SCDs and Heparin Pt Condition on Discharge: Stable Discharge Disposition: Discharge to SNF Discharge Time: > 30 minutes Discharge Instructions DIET: Follow Instructions for: Heart Healthy Diet Speech Therapy-Diet Recommends: Regular Activities you can perform: Weight Bearing as Cherry Activities to Avoid: Strenuous Activity Follow up Referrals: Gastroenterology - 2 Weeks with [facility] PCP Follow-up - 3-5 Days with PCP New Medications: Mesalamine DR (Mesalamine DR) 800 Mg Tab 1600 MG PO Q8HR for c diff colitis for 5 Days, TAB Vancomycin Inj (Vancomycin Inj) 500 Mg Inj 250 MG PO QID for c diff for 11 Days, INJECTION Continued Medications: Aspirin (Aspirin Low Dose) 81 Mg Chew 81 MG CHEW DAILY, TAB 0 Refills Atorvastatin (Atorvastatin) 20 Mg Tab 20 MG PO HS for Cholesterol Management, #30 TAB 0 Refills Citalopram (Citalopram) 40 Mg Tab 40 MG PO DAILY for Control Depression, #30 TAB 0 Refills Famotidine (Famotidine) 20 Mg Tab 20 MG PO DAILY, #60 TAB 0 Refills Fenofibrate (Fenofibrate) 145 Mg Tab 145 MG PO DAILY, #30 TAB 0 Refills Lorazepam (Lorazepam) 0.5 Mg Tab 0.5 MG PO Q6H PRN for ANXIETY, TAB 0 Refills Metoprolol Tartrate (Metoprolol Tartrate) 50 Mg Tab 50 MG PO DAILY, #30 TAB 0 Refills Topiramate (Topiramate) 25 Mg Tab 25 MG PO DAILY for Control Seizures, #60 TAB 0 Refills Tramadol (Tramadol) 50 Mg Tab 50 MG PO Q6H PRN for PAIN, TAB 0 Refills Discontinued Medications: Nitrofurantoin Macrocrystal (Nitrofurantoin Macrocrystal) 100 Mg Cap 100 MG PO DAILY for Infection, CAP 0 Refills Len Garcia MD Sep 13, 2017 10:49
== END 2017-09-13 17:22 | DRG 372 ==
LOC: NEPC 12:40 → NEDA 15:34 → N04B 18:31
PROVIDERS: ADMIT Internal Medicine; ATTEND Internal Medicine
PROC: B246ZZ4 Ultrasonography of Right and Left Heart, Transesophageal (ICD-10-PCS; principal; 2017-09-05)
DX: A04.72 Enterocolitis due to Clostridium difficile, not specified as recurrent (principal); N17.9 Acute kidney failure, unspecified; R06.89 Other abnormalities of breathing; I11.0 Hypertensive heart disease with heart failure; I50.9 Heart failure, unspecified; E86.0 Dehydration; N39.0 Urinary tract infection, site not specified; K21.9 Gastro-esophageal reflux disease without esophagitis; G47.30 Sleep apnea, unspecified; D72.825 Bandemia; L29.8 Other pruritus; R63.0 Anorexia; E78.5 Hyperlipidemia, unspecified; M81.0 Age-related osteoporosis without current pathological fracture; B96.20 Unspecified Escherichia coli [E. coli] as the cause of diseases classified elsewhere; R06.2 Wheezing; M19.90 Unspecified osteoarthritis, unspecified site; T36.8X5A Adverse effect of other systemic antibiotics, initial encounter; F32.9 Major depressive disorder, single episode, unspecified; F41.9 Anxiety disorder, unspecified; Y92.238 Other place in hospital as the place of occurrence of the external cause; Z23 Encounter for immunization; Z80.0 Family history of malignant neoplasm of digestive organs; Z87.891 Personal history of nicotine dependence; Z85.3 Personal history of malignant neoplasm of breast; Z88.1 Allergy status to other antibiotic agents; Z88.5 Allergy status to narcotic agent; Z90.10 Acquired absence of unspecified breast and nipple; Z95.810 Presence of automatic (implantable) cardiac defibrillator; Z96.641 Presence of right artificial hip joint
CPT/HCPCS: 71045; 74177; 76937; 80048; 80053; 81001; 83605; 83690; 83735; 83880; 84155; 85007; 85025; 85027; 86850; 86900; 86901; 86920; 87040; 87077; 87086; 87186; 87205; 87493; 87506; 90732; 93005; 94150; 94640; 94664; 96361; 96374; 96375; J0696; J1200; J1644; J1650; J2060; J2270; J2405; J2543; J3480; J7030; J7040; Q9967

== ENCOUNTER 2017-10-22 15:05 | Inpatient (IN) | payer MEDICARE, OTHER ==
[~2017-10-22] VITALS: Ht 167.6 cm; Wt 82.9 kg
[~2017-10-22 15:05] MED LIST changes: -ACET325 PO; +ASPI81CH6 CHEW; +ATOR20TA15 PO; -ATOR20TA42 PO; -CALTCHW4 PO; -CITA-48 PO; +CITA40TA4 PO; -COEN400C PO; -COUG100S2 PO; -ENOX100P SQ; +FENO145T2 PO; -FENO50TA PO; -FISH100020 OR; -FURO20 PO; +FURO20TA PO; +LOPE2TAB21; -LORA-392 PO; +LORA0.5T PO; +MESA1TAB2 PO; -METO50CR PO; +METO50TA PO; -NITR0.4S SL; -OMEP20TA PO; +OMEP20TA93 PO; -POTA-267 PO; -SM A81CH PO; -TOPI25 PO; +TOPI25TA7 PO; +TRAM50TA PO; +VANC500I3 PO; -[UNRECOGNIZED DRUG - CODE] PO
[2017-10-22 15:13] VITALS: BP 131/71; PULSE 94; RESP 24
[2017-10-22] MEDS ORDERED: METR1TAB76 PO (15:25)
[2017-10-22] MEDS ORDERED: ARIC23TA PO (15:25)
[2017-10-22] MEDS ORDERED: COLL30T TOPICAL (15:25)
[2017-10-22] MEDS ORDERED: PANTOPRAZOLE INJ 80 MG in SODIUM CHLORIDE 0.9% INJ 100 ML IV SCH (15:38)
[2017-10-22] MEDS ORDERED: PANTOPRAZOLE INJ 80 MG in SODIUM CHLORIDE 0.9% INJ 35 ML IV ONE (15:38)
[2017-10-22 15:40] VITALS: TEMP 98.8
[2017-10-22 15:53] LABS: AUTOMATED NEUTROPHIL # 5.6 TH/MM3 (1.8-7.7); BASOPHIL % 0.1 % (0.0-2.0); EOSINOPHIL % 0.1 % (0.0-4.0); HEMATOCRIT 39.2 % (35.0-46.0); HEMOGLOBIN 13.1 GM/DL (11.6-15.3); LYMPH % 41.8 % (9.0-44.0); LYMPHOCYTE # 4.5 TH/MM3 (1.0-4.8); MEAN CELL VOLUME 92.9 FL (80.0-100.0); MEAN CORPUSCULAR HGB CONC 33.3 % (32.0-36.0); MONO % 5.5 % (0.0-8.0); MONOCYTE # 0.6 TH/MM3 (0-0.9); NEUT % 52.5 % (16.0-70.0); PLATELET COUNT 145 TH/MM3 (150-450); RED BLOOD COUNT 4.22 MIL/MM3 (4.00-5.30); WHITE BLOOD COUNT 10.7 TH/MM3 (4.0-11.0)
--- NOTE | 2017-10-22 15:56 | PD ---
HPI Chief Complaint: Bleeding Time Seen by Provider: 15:38 Travel History International Travel<30 days: No Contact w/Intl Traveler<30days: No Traveled to known affect area: No History of Present Illness HPI 82yo F with PMH of dementia, CHF on constant O2 was sent her from [facility] for rectal bleeding. As per the report, pt has been bleeding for 2 days but more today. Pt was hypotensive when [facility]AC arrived and BP improved in the ED. Pt complains of rectal pain. Denies any fever, chest pain, sob, n/v, abdominal pain, focal weakness or numbness. Pt normally is wheelchair bound so weakness in legs are not new. Pt is currently being treated for positive c diff. As per EVAC, pt is at baseline mental status as per custodial. PFSH Past Medical History Arthritis: Yes Asthma: No Autoimmune Disease: No Anxiety: Yes Depression: Yes Heart Rhythm Problems: Yes (CARDIO MYOPATHY) Cancer: Yes (Hx Breast ca) Cardiac Catheterization: Yes Cardiomyopathy: Yes Cardiovascular Problems: Yes High Cholesterol: Yes Chemotherapy: Yes Chest Pain: No Congestive Heart Failure: Yes COPD: No Cerebrovascular Accident: Yes (2016) Diabetes: No Diminished Hearing: No Endocrine: No Gastrointestinal Disorders: Yes GERD: Yes Genitourinary: Yes (Chronic UTIs) Hiatal Hernia: No Hypertension: Yes Immune Disorder: No Implanted Vascular Access Dvce: Yes Kidney Stones: No Musculoskeletal: Yes Neurologic: Yes (Trigeminal neuralgia) Psychiatric: Yes Reproductive: No Respiratory: Yes Immunizations Current: Yes Radiation Therapy: Yes Renal Failure: No Sickle Cell Disease: No Sleep Apnea: Yes (DENIES USE OF MACHINES) Thyroid Disease: No Ulcer: No : 1 Para: 0 Past Surgical History Abdominal Surgery: Yes (Stent in "stomach") AICD: Yes Arteriovenous Shunt: No Cardiac Surgery: Yes (PACE MAKER AND DEFIBRILATOR/STENT) Coronary Stent: Yes Ear Surgery: No Endocrine Surgery: No Eye Surgery: Yes (Bilateral lasik sx) Genitourinary Surgery: No Gynecologic Surgery: Yes (R mastectomy) Insulin Pump: No Joint Replacement: Yes (R hip replacement) Mastectomy: Yes (RIGHT ) Oral Surgery: No Pacemaker: Yes ("METRONIC" PER PATIENT) Thoracic Surgery: No Tonsillectomy: Yes (AND ADENOIDS) Other Surgery: Yes Social History Alcohol Use: No Tobacco Use: No (FORMER) Substance Use: No Allergies-Medications (Allergen,Severity, Reaction): Coded Allergies: codeine (Unverified Allergy, Severe, Nausea/Vomiting, 10/22/17) ciprofloxacin (Verified Allergy, Intermediate, Rash, 10/22/17) Rash with itching when given intravenously Reported Meds & Prescriptions Reported Meds & Active Scripts Active Mesalamine DR (Mesalamine) 800 Mg Tab 1,600 Mg PO Q8HR 5 Days Vancomycin Inj (Vancomycin HCl) 500 Mg Inj 250 Mg PO QID 11 Days Reported Santyl Topical (Collagenase) 250 Unit/Gm Oint 1 Applic TOPICAL DAILY Metronidazole 500 Mg Tab 500 Mg PO BID Aricept (Donepezil) 23 Mg Tab 5 Mg PO HS Do not split, crushed or chewed. Fosinopril (Fosinopril Sodium) 10 Mg Tab 10 Mg PO DAILY Fenofibrate 145 Mg Tab 145 Mg PO DAILY Atorvastatin (Atorvastatin Calcium) 20 Mg Tab 20 Mg PO HS Aspirin Low Dose (Aspirin) 81 Mg Chew 81 Mg CHEW DAILY Metoprolol Tartrate 50 Mg Tab 50 Mg PO DAILY Topiramate 25 Mg Tab 25 Mg PO DAILY Famotidine 20 Mg Tab 20 Mg PO DAILY Citalopram (Citalopram Hydrobromide) 40 Mg Tab 40 Mg PO DAILY Tramadol (Tramadol HCl) 50 Mg Tab 50 Mg PO Q6H PRN Lorazepam 0.5 Mg Tab 0.5 Mg PO Q6H PRN Review of Systems Except as stated in HPI: all other systems reviewed are Neg Physical Exam Narrative GENERAL: 82yo F in mild distress. SKIN: Focused skin assessment warm/dry. HEAD: Atraumatic. Normocephalic. EYES: Pupils equal and round. No scleral icterus. No injection or drainage. ENT: No nasal bleeding or discharge. Mucous membranes pink and moist. NECK: Trachea midline. No JVD. CARDIOVASCULAR: Regular rate and rhythm. No murmur appreciated. RESPIRATORY: No accessory muscle use. Clear to auscultation. Breath sounds equal bilaterally. GASTROINTESTINAL: Abdomen soft, non-tender, nondistended. RECTAL: 4cm by 3cm deep sacral decubitus ulcer. +Hemaprompt, maroon blood. MUSCULOSKELETAL: No obvious deformities. No clubbing. No cyanosis. No edema. NEUROLOGICAL: Awake and alert. No obvious cranial nerve deficits. Motor grossly within normal limits in upper extremities. Moves bilateral feet but not to gravity. Normal speech. PSYCHIATRIC: Appropriate mood and affect; insight and judgment normal. Data Data Last Documented VS Vital Signs Date Time Temp Pulse Resp B/P (MAP) Pulse Ox O2 Delivery O2 Flow Rate FiO2 10/22/17 15:40 98.8 10/22/17 15:13 94 24 131/71 (91) Orders Orders Basic Metabolic Panel (Bmp) (10/22/17 15:38) Complete Blood Count With Diff (10/22/17 15:38) Prothrombin Time / Inr (Pt) (10/22/17 15:38) Act Partial Throm Time (Ptt) (10/22/17 15:38) Type And Screen (10/22/17 15:38) Sodium Chloride 0.9... W/Pantoprazole In (10/22/17 15:38) Sodium Chloride 0.9... W/Pantoprazole In (10/22/17 15:38) Chest, Single Ap (10/22/17 ) Troponin I (10/22/17 16:06) Arterial Blood Gas (Abg) (10/22/17 ) B-Type Natriuretic Peptide (10/22/17 16:06) Electrocardiogram (10/22/17 15:39) Blood Culture (10/22/17 17:03) Lactic Acid Sepsis Protocol (10/22/17 17:03) Vancomycin For Oral Use Only (Vancomycin (10/22/17 17:05) Admit Order (Ed Use Only) (10/22/17 17:52) Labs Laboratory Tests Test 10/22/17 15:40 10/22/17 15:50 10/22/17 16:09 White Blood Count 10.7 TH/MM3 Red Blood Count 4.22 MIL/MM3 Hemoglobin 13.1 GM/DL Hematocrit 39.2 % Mean Corpuscular Volume 92.9 FL Mean Corpuscular Hemoglobin 31.0 PG Mean Corpuscular Hemoglobin Concent 33.3 % Red Cell Distribution Width 17.0 % Platelet Count 145 TH/MM3 Mean Platelet Volume 8.0 FL Neutrophils (%) (Auto) 52.5 % Lymphocytes (%) (Auto) 41.8 % Monocytes (%) (Auto) 5.5 % Eosinophils (%) (Auto) 0.1 % Basophils (%) (Auto) 0.1 % Neutrophils # (Auto) 5.6 TH/MM3 Lymphocytes # (Auto) 4.5 TH/MM3 Monocytes # (Auto) 0.6 TH/MM3 Eosinophils # (Auto) 0.0 TH/MM3 Basophils # (Auto) 0.0 TH/MM3 CBC Comment AUTO DIFF Differential Total Cells Counted 100 Neutrophils % (Manual) 48 % Band Neutrophils % 25 % Lymphocytes % 19 % Monocytes % 7 % Neutrophils # (Manual) 7.9 TH/MM3 Metamyelocytes 1 % Differential Comment FINAL DIFF MANUAL Platelet Estimate NORMAL Platelet Morphology Comment NORMAL Red Cell Morphology Comment NORMAL Prothrombin Time 15.1 SEC Prothromb Time International Ratio 1.5 RATIO Activated Partial Thromboplast Time 20.1 SEC Blood Urea Nitrogen 43 MG/DL Creatinine 0.95 MG/DL Random Glucose 121 MG/DL Calcium Level 7.8 MG/DL Sodium Level 133 MEQ/L Potassium Level 5.5 MEQ/L Chloride Level 104 MEQ/L Carbon Dioxide Level 16.2 MEQ/L Anion Gap 13 MEQ/L Estimat Glomerular Filtration Rate 57 ML/MIN Troponin I LESS THAN 0.02 NG/ML B-Type Natriuretic Peptide 44 PG/ML Blood Gas Puncture Site RT RADIAL Blood Gas Patient Temperature 98.6 Blood Gas HCO3 17 mmol/L Blood Gas Base Excess -6.0 mmol/L Blood Gas Oxygen Saturation 94 % Arterial Blood pH 7.50 Arterial Blood Partial Pressure CO2 21 mmHg Arterial Blood Partial Pressure O2 65 mmHG Arterial Blood Oxygen Content 16.6 Vol % Arterial Blood Carboxyhemoglobin 0.9 % Arterial Blood Methemoglobin 0.5 % Blood Gas Hemoglobin 12.6 G/DL Oxygen Delivery Device NASAL CANNULA Blood Gas Liter Flow 3 L/M MDM Medical Decision Making Medical Screen Exam Complete: Yes Emergency Medical Condition: Yes Interpretation(s) EKG: Paced rhythm. Normal axis. No ST segment elevation or depression. Differential Diagnosis GI bleed vs. cdiff colitis vs. symptomatic anemia Narrative Course 82yo F who is currently being treated for c diff with metronidazole PO at [facility] sent here for rectal bleeding for 2 days. Labs reviewed, no leukocytosis. H/H normal at 13.1/39.2. Pt does have bandemia at 25%. Troponin negative. BNP normal at 44. K is 5.5 but slightly hemolyzed. BUN elevated at 43, consistent with GI bleed. Pt is saturating well at 98% on 3L NC and I was informed that pt uses oxygen constantly. However, she is hyperventilating and tachypneic. When asked if she is sob, she said I dont know. ABG showed respiratory alkalosis and that pCO2 is low consistent with hyperventilation. pO2 is 65. CXR negative. UA still pending. Blood culture drawn and lactic acid added since pt is mildly tachycardic with bandemia. Pt covered with PO vancomycin for cdiff treatment. Also on protonix drip for GI bleed. Discussed with resident physician and accepted to their service. Critical Care Narrative Aggregate critical care time was 45 minutes. Time to perform other separately billable procedures was not included in the critical care time. My time did not include minutes spent treating any other patients simultaneously or on activities that did not directly contribute to the patient's treatment. The services I provided to this patient were to treat and/or prevent clinically significant deterioration that could result in: cardiovascular collapse or . I provided critical care services requiring my management, as noted below: Chart data review, documentation time, medication orders and management, vital sign assessments/reviewing monitor data, ordering and reviewing lab tests, ordering and interpreting/reviewing x-rays and diagnostic studies, care of the patient and discussion of the patient with the admitting physicians. HemaPrompt Point of Care Internal Pos. & Neg. Controls: Passed Fecal Specimen Occult Blood: Positive Diagnosis Primary Impression: GI bleed Qualified Codes: K92.2 - Gastrointestinal hemorrhage, unspecified Additional Impression: Bandemia Admitting Information Admitting Physician Requests: Tatiana Park DO Oct 22, 2017 15:56
[2017-10-22 16:09] LABS: INTERNATIONAL NORMALIZED RATIO 1.5 RATIO; PROTHROMBIN TIME - PATIENT 15.1 SEC (9.8-11.6)
[2017-10-22 16:16] LABS: BICARBONATE 16.2 MEQ/L (21.0-32.0); CALCIUM 7.8 MG/DL (8.5-10.1); CREATININE 0.95 MG/DL (0.50-1.00)
[2017-10-22 16:17] LABS: BANDS 25 % (0-6); LYMPHOCYTES 19 % (9-44); METAMYELOCYTES 1 % (0-1); MONOCYTES 7 % (0-8); NEUTROPHIL # MANUAL DIFF 7.9 TH/MM3 (1.8-7.7); POLYS (SEG NEUTROPHILS) 48 % (16-70)
--- NOTE | 2017-10-22 16:44 | RADRPT ---
EXAM DATE: 10/22/2017 4:41 PM EDT AGE/SEX: 82 years / Female INDICATIONS: Shortness of breath. CLINICAL DATA: This is the patient's initial encounter. Patient reports that signs and symptoms have been present for 3 days and indicates a pain score of Nonresponsive. MEDICAL/SURGICAL HISTORY: None. None. [place] [facility] [place] . FINDINGS: No infiltrate, effusion or pneumothorax. Heart size stable, within normal limits. Artifact pacer/defi brillator again noted. CONCLUSION: No evidence of acute cardiopulmonary disease. Electronically signed by: Ridge Santos MD 10/22/2017 4:43 PM EDT
[2017-10-22] MEDS ORDERED: VANCOMYCIN 500 MG VIAL (FOR ORAL USE ONLY) PO STA (17:05)
--- NOTE | 2017-10-22 17:36 | HHI.HP ---
HPI Service Family Medicine Primary Care Physician Unknown Admission Diagnosis Diagnoses: International Travel<30 Days: No Contact w/Intl Traveler<30days: No Known Affected Area: No History of Present Illness Patient is an 82-year-old female with past history of dementia, CHF, HTN who presents today from her [facility] ([facility]) for rectal bleeding. Patient is a poor historian. As per report the patient had rectal bleeding for approximately 2-3 days, may have been hypotensive when being transported by [facility]. Patient found to be mildly tachycardic and tachypneic while in the ED. Patient reports she feels as though she is breathing faster. Denies nausea, vomiting, fever, chills, abdominal pain, chest pain, shortness of breath, left arm or jaw pain, sweating, lightheadedness, dizziness, headache. Although she denies diarrhea, and is unsure about blood in her stool it was reported that she is currently being treated for C. difficile and has the blood as noted above. Patient notes some pain in her lower back, it was reported that she has a decubitus ulcer. Review of Systems Constitutional: DENIES: Fatigue, Fever, Chills Endocrine: DENIES: Polydipsia, Polyuria Eyes: DENIES: Blurred vision, Diplopia, Eye inflammation, Eye pain, Vision loss , Photosensitivity, Double Vision Ears, nose, mouth, throat: DENIES: Tinnitus, Hearing loss, Oral lesions, Throat pain, Hoarseness, Ear Pain, Sinus Pain Respiratory: COMPLAINS OF: Shortness of breath, DENIES: Apneas, Cough, Wheezing , Hemoptysis Cardiovascular: DENIES: Chest pain, Palpitations, Syncope, Dyspnea on Exertion Gastrointestinal: COMPLAINS OF: Bloody stools (Denies, but reported to be present), Diarrhea (Denies, but reported to be present), DENIES: Abdominal pain , Black stools, Constipation, Nausea, Vomiting Genitourinary: DENIES: Hematuria, Dysuria Musculoskeletal: COMPLAINS OF: Back pain, DENIES: Joint pain, Muscle aches, Stiffness Integumentary: DENIES: Abnormal pigmentation, Rash Hematologic/lymphatic: DENIES: Bruising, Lymphadenopathy Immunologic/allergic: DENIES: Eczema, Urticaria Neurologic: DENIES: Abnormal gait (States she usually does not walk), Headache , Localized weakness Psychiatric: DENIES: Anxiety, Depression Past Family Social History Past Medical History PFSH obtained VIA EMR and sign-out due to patient's inability to provide Hypertension GERD Chronic UTI. Hyperlipidemia. Depression. Osteoporosis. arthritis. Breast cancer status post mastectomy. Past Surgical History Mastectomy. AICD. Cardiac catheterization. Right total hip arthroplasty. Dupuytren's release in both hands Allergies: Coded Allergies: codeine (Unverified Allergy, Severe, Nausea/Vomiting, 10/22/17) ciprofloxacin (Verified Allergy, Intermediate, Rash, 10/22/17) Rash with itching when given intravenously Family History Patient's father at 103 years old. Patient's mother of unknown causes. Social History as of August 2017 Patient denies smoking, denies alcohol or illegal drug use Physical Exam Vital Signs Vital Signs Date Time Temp Pulse Resp B/P (MAP) Pulse Ox O2 Delivery O2 Flow Rate FiO2 10/22/17 15:40 98.8 10/22/17 15:13 94 24 131/71 (91) Physical Exam GENERAL: This is a well-nourished, well-developed patient, occasionally asking to go to a mcfp. Dennis blood in diaper. SKIN: Cool and dry. Sacral ulcer, likely grade 3. HEAD: Atraumatic. Normocephalic. No temporal or scalp tenderness. EYES: Pupils equal round and reactive. Extraocular motions intact. No scleral icterus. No injection or drainage. ENT: Nose without bleeding, purulent drainage or septal hematoma. Throat without erythema, tonsillar hypertrophy or exudate. Uvula midline. Airway patent. NECK: Trachea midline. No JVD or lymphadenopathy. Supple, nontender, no meningeal signs. CARDIOVASCULAR: Regular rate and rhythm without murmurs, gallops, or rubs. RESPIRATORY: Clear to auscultation. Breath sounds equal bilaterally. No wheezes , rales, or rhonchi. Tachypnea. GASTROINTESTINAL: Abdomen soft, tender in all regions, nondistended. No hepato- splenomegaly, or palpable masses. No guarding. MUSCULOSKELETAL: Extremities without clubbing, cyanosis, or edema. No joint tenderness, effusion, or edema noted. No calf tenderness. NEUROLOGICAL: Awake and alert. Oriented to person, place and time. Motor and sensory grossly within normal limits. Five out of 5 muscle strength in all muscle groups. Normal speech. Laboratory Laboratory Tests Test 10/22/17 15:40 10/22/17 15:50 10/22/17 16:09 White Blood Count 10.7 Red Blood Count 4.22 Hemoglobin 13.1 Hematocrit 39.2 Mean Corpuscular Volume 92.9 Mean Corpuscular Hemoglobin 31.0 Mean Corpuscular Hemoglobin Concent 33.3 Red Cell Distribution Width 17.0 Platelet Count 145 Mean Platelet Volume 8.0 Neutrophils (%) (Auto) 52.5 Lymphocytes (%) (Auto) 41.8 Monocytes (%) (Auto) 5.5 Eosinophils (%) (Auto) 0.1 Basophils (%) (Auto) 0.1 Neutrophils # (Auto) 5.6 Lymphocytes # (Auto) 4.5 Monocytes # (Auto) 0.6 Eosinophils # (Auto) 0.0 Basophils # (Auto) 0.0 CBC Comment AUTO DIFF Differential Total Cells Counted 100 Neutrophils % (Manual) 48 Band Neutrophils % 25 Lymphocytes % 19 Monocytes % 7 Neutrophils # (Manual) 7.9 Metamyelocytes 1 Differential Comment FINAL DIFF MANUAL Platelet Estimate NORMAL Platelet Morphology Comment NORMAL Red Cell Morphology Comment NORMAL Prothrombin Time 15.1 Prothromb Time International Ratio 1.5 Activated Partial Thromboplast Time 20.1 Blood Urea Nitrogen 43 Creatinine 0.95 Random Glucose 121 Calcium Level 7.8 Sodium Level 133 Potassium Level 5.5 Chloride Level 104 Carbon Dioxide Level 16.2 Anion Gap 13 Estimat Glomerular Filtration Rate 57 Troponin I LESS THAN 0.02 B-Type Natriuretic Peptide 44 Blood Gas Puncture Site RT RADIAL Blood Gas Patient Temperature 98.6 Blood Gas HCO3 17 Blood Gas Base Excess -6.0 Blood Gas Oxygen Saturation 94 Arterial Blood pH 7.50 Arterial Blood Partial Pressure CO2 21 Arterial Blood Partial Pressure O2 65 Arterial Blood Oxygen Content 16.6 Arterial Blood Carboxyhemoglobin 0.9 Arterial Blood Methemoglobin 0.5 Blood Gas Hemoglobin 12.6 Oxygen Delivery Device NASAL CANNULA Blood Gas Liter Flow 3 Result Diagram: 10/22/17 1540 10/22/17 1540 Caprini VTE Risk Assessment Caprini VTE Risk Assessment: Mod/High Risk (score >= 2) Assessment and Plan Assessment and Plan Patient is an 82-year-old female with past history of dementia, CHF, HTN who presented from her [facility] ([facility]) for rectal bleeding. Also found to be mildly tachypnea, tachycardic with possible source of infection being sacral ulcer. Reported to have C. difficile. Discussed Condition With ED physician Problem List: (1) GI bleed ICD Codes: K92.2 - Gastrointestinal hemorrhage, unspecified Status: Acute Plan: Patient with reported 3 days of GI bleed. Dennis blood in diaper on admission. -Follow-up every 6 hours H&H -Protonix -Follow-up GI consult -Will not anticoagulate at this time due to active bleed (2) SIRS (systemic inflammatory response syndrome) ICD Codes: R65.10 - Systemic inflammatory response syndrome (SIRS) of non- infectious origin without acute organ dysfunction Plan: Patient presented with RR 24, P 94, bands 25. -lactic acid 1.6 -Vanc Zosyn -F/U wound, blood cultures (3) C. difficile colitis ICD Codes: A04.72 - Enterocolitis due to Clostridium difficile, not specified as recurrent Plan: Reported she is currently being treated for C. difficile at her [facility]. -Follow-up C. difficile PCR -Receiving vancomycin IV for possible bacteremia, will use metronidazole 500 mg q. 8 for now (4) Sacral decubitus ulcer ICD Codes: L89.159 - Pressure ulcer of sacral region, unspecified stage Plan: Sacral decubitus ulcer, likely stage III. Possible source of infection. -follow-up wound consults recommendations (5) HTN (hypertension) ICD Codes: I10 - HTN (hypertension) Status: Acute Plan: History of hypertension -Continue home medications (6) HLD (hyperlipidemia) ICD Codes: E78.5 - Hyperlipidemia, unspecified Plan: History of hyperlipidemia -Continue home medications (7) FEN Physician Certification 2 Midnight Certification Type: Admission for Inpatient Services Order for Inpatient Services The services are ordered in accordance with Medicare regulations or non- Medicare payer requirements, as applicable. In the case of services not specified as inpatient-only, they are appropriately provided as inpatient services in accordance with the 2-midnight benchmark. Estimated LOS (days): 2 2 days is the estimated time the patient will need to remain in the hospital, assuming treatment plan goals are met and no additional complications. Post-Hospital Plan: [facility] Problem Qualifiers (1) GI bleed: Qualified Codes: K92.2 - Gastrointestinal hemorrhage, unspecified Deion Vasquez MD R1 Oct 22, 2017 17:36
[2017-10-22] MEDS ORDERED: ONDANSETRON ODT 4 MG TAB PO PRN (18:15)
[2017-10-22 18:51] LABS: BILIRUBIN, URINE NEG (NEG); BLOOD, URINE TRACE (NEG); GLUCOSE,URINE NEG (NEG); KETONE, URINE NEG (NEG); MUCUS URINE FEW /lpf (OCC); NITRITE,URINE NEG (NEG); PH, URINE 5.5 (5.0-8.5); SQUAMOUS EPITHELIAL CELL URINE 1 /hpf (0-5); URINE COLOR YELLOW (YELLW/STRAW); URINE LEUKOCYTE ESTERASE SMALL (NEG)
[2017-10-22] MEDS: SODIUM CHLOR 0.9% 1000 ML INJ 1,000 ML IV SCH (19:02)
[2017-10-22 19:05] VITALS: BP 120/59; PULSE 112; RESP 16; O2SAT 97
[2017-10-22 20:00] VITALS: BP 129/77; PULSE 77; RESP 19; TEMP 97.3; O2SAT 100
[2017-10-22] MEDS: metroNIDAZOLE 500 MG INJ 100 ML IV SCH (23:15)
[2017-10-22] MEDS: DONEPEZIL HCL 5 MG TAB PO SCH (23:25)
[2017-10-22] MEDS: MESALAMINE HD 800 MG DELAYED RELEASE TAB PO SCH (23:25)
[2017-10-22] MEDS: ATORVASTATIN 20 MG TAB PO SCH (23:25)
[2017-10-23] VITALS: BP 116/73; PULSE 97; RESP 17; TEMP 97.3; O2SAT 96
[2017-10-23] MEDS: PIPERACIL-TAZO 3.375 GM PREMIX 50 ML IV SCH ×4 (00:19→22:00)
[2017-10-23] MEDS: VANCOMYCIN INJ 1,000 MG in SODIUM CHLOR 0.9% 250 ML INJ 250 ML IV SCH ×3 (00:53→23:00)
[2017-10-23 01:09] LABS: HEMATOCRIT 34.9 % (35.0-46.0); HEMOGLOBIN 11.6 GM/DL (11.6-15.3)
[2017-10-23] MEDS: PANTOPRAZOLE INJ 80 MG in SODIUM CHLORIDE 0.9% INJ 100 ML IV SCH ×3 (01:40→21:09)
[2017-10-23 04:00] VITALS: BP 118/94; PULSE 94; RESP 19; TEMP 97.8; O2SAT 96
[2017-10-23] MEDS: metroNIDAZOLE 500 MG INJ 100 ML IV SCH ×3 (06:12→21:08)
[2017-10-23] MEDS: MESALAMINE HD 800 MG DELAYED RELEASE TAB PO SCH ×3 (06:19→21:08)
--- NOTE | 2017-10-23 07:11 | HHI.FPPN ---
Subjective Remarks This progress note is written in conjunction with resident H&P dated 10/22/2017. Viji Wagoner is an 82yo lady currently under treatment for C Diff colitis admitted for bright red blood per rectum. She was sent from her SNF, [facility]. Overnight, her hemoglobin remained stable. This morning, she denies any diarrhea, abdominal pain, blood in stool. (Of note , she has large amount of melena noted in bed) She has no complaints. Review of medical records reveals she had leukocytosis noted on outpt labs on , with WBC 21. After that lab, it appears that flagyl 500mg PO BID was started x 10 days. ROS: No abdominal pain, nausea, diarrhea. PMH/PSxH/SocHx/FamHx: Significant for: Dementia; C Diff colitis; sacral pressure ulcer currently being treated. AICD, h/o cardiac cath. Was staying at [facility]. Objective Vitals Vital Signs Date Time Temp Pulse Resp B/P (MAP) Pulse Ox O2 Delivery O2 Flow Rate FiO2 10/23/17 04:00 97.8 94 19 118/94 (102) 96 10/23/17 00:00 97.3 97 17 116/73 (87) 96 10/22/17 20:00 97.3 77 19 129/77 (94) 100 10/22/17 19:05 112 16 120/59 (79) 97 Nasal Cannula 3.00 10/22/17 15:40 98.8 10/22/17 15:13 94 24 131/71 (91) Result Diagram: 10/22/17 2215 10/22/17 1540 Objective Remarks Significant for: Pale. No resp distress, nontoxic. +BS, soft, nontender, nondistended. Prajapati catheter in place, draining clear yellow urine. Sacral pressure ulcer noted, likely grade 3, measuring ~8cm in diameter. Large amount of melena noted in the bed. Unable to clear melena to evaluate rectum. A/P Assessment and Plan Patient is an 82-year-old female with past history of dementia, CHF, HTN who presented from her correction ([facility]) for rectal bleeding. Also found to be mildly tachypnea, tachycardic with possible source of infection being sacral ulcer. Reported to have C. difficile. Discharge Planning Patient has a poor overall prognosis, given multiple co-morbidities. Will consult palliative care to assist with setting goals. Attending Attestation Patient seen, examined, and discussed with resident team. The patient has been seen and examined. The chart and all resident notes have been reviewed. I agree that inpatient care is appropriate and that a two midnight stay is expected for the reasons documented in the resident history and physical. I have discussed this with the resident and certify the resident s order for inpatient admission. Problem List: (1) GI bleed ICD Codes: K92.2 - Gastrointestinal hemorrhage, unspecified Status: Acute Plan: Patient with reported 3 days of GI bleed. Large amount of melena noted today. -Follow-up every 6 hours H&H; H/H currently stable. -Protonix. -Follow-up GI consult; appreciate recs. -Will not anticoagulate at this time due to active bleed (2) SIRS (systemic inflammatory response syndrome) ICD Codes: R65.10 - Systemic inflammatory response syndrome (SIRS) of non- infectious origin without acute organ dysfunction Plan: Patient presented with RR 24, P 94, bands 25. Consider C Diff colitis (although negative 10/23/2017); infection from sacral ulcer vs GI bleed as etiology -lactic acid 1.6 -Vanc and Zosyn have been started -F/U wound, blood cultures (3) C. difficile colitis ICD Codes: A04.72 - Enterocolitis due to Clostridium difficile, not specified as recurrent Plan: Reported she is currently being treated for C. difficile at her correction. -C Diff PCR 10/23/2017 negative, but it appears that patient has been re-started on medications as of 10/18/2017 (In [facility], Flagyl 500mg BID was started x 10 days). (4) Sacral decubitus ulcer ICD Codes: L89.159 - Pressure ulcer of sacral region, unspecified stage Plan: Sacral decubitus ulcer, likely stage III. Possible source of infection. -follow-up wound consults recommendations -Vancomycin and Zosyn have been started. (5) HTN (hypertension) ICD Codes: I10 - HTN (hypertension) Status: Chronic Plan: History of hypertension -Continue home medications. -Continue to monitor BP. (6) HLD (hyperlipidemia) ICD Codes: E78.5 - Hyperlipidemia, unspecified Status: Chronic Plan: History of hyperlipidemia. -Continue home medications (7) Hyponatremia ICD Codes: E87.1 - Hypo-osmolality and hyponatremia Status: Resolved Plan: Likely secondary to dehydration from bleeding and diarrhea. Resolved. Monitor BMPs (8) Hyperkalemia ICD Codes: E87.5 - Hyperkalemia Status: Resolved Plan: Resolved. Monitor BMP in AM. Problem Qualifiers (1) GI bleed: Qualified Codes: K92.2 - Gastrointestinal hemorrhage, unspecified (2) Sacral decubitus ulcer: Qualified Codes: L89.153 - Pressure ulcer of sacral region, stage 3 (3) HTN (hypertension): Qualified Codes: I10 - Essential (primary) hypertension Juliane Phillip MD Oct 23, 2017 07:11
[2017-10-23 08:00] VITALS: BP 110/56; PULSE 97; RESP 16; TEMP 98.1; O2SAT 98
[2017-10-23 08:12] LABS: HEMATOCRIT 36.7 % (35.0-46.0); HEMOGLOBIN 12.2 GM/DL (11.6-15.3); MEAN CELL VOLUME 93.5 FL (80.0-100.0); MEAN CORPUSCULAR HGB CONC 33.1 % (32.0-36.0); MEAN PLATELET VOLUME 7.4 FL (7.0-11.0); PLATELET COUNT 111 TH/MM3 (150-450); RED BLOOD COUNT 3.92 MIL/MM3 (4.00-5.30); RED CELL DISTRIBUTION WIDTH 17.4 % (11.6-17.2); WHITE BLOOD COUNT 7.9 TH/MM3 (4.0-11.0)
[2017-10-23 08:45] LABS: CALCIUM 7.5 MG/DL (8.5-10.1); CREATININE 0.85 MG/DL (0.50-1.00)
[2017-10-23] MEDS ORDERED: ASPIRIN 81 MG CHEW TAB CHEW SCH (09:00)
[2017-10-23] MEDS: COLLAGENASE OINT 30 GM TUBE TOPICAL SCH (09:00)
[2017-10-23] MEDS ORDERED: METOPROLOL TARTRATE 50 MG TAB PO SCH (09:00)
[2017-10-23] MEDS: SODIUM CHLOR 0.9% 1000 ML INJ 1,000 ML IV SCH ×3 (10:00→21:16)
[2017-10-23] MEDS: FENOFIBRATE 145 MG TAB PO SCH (11:23)
[2017-10-23] MEDS: LISINOPRIL 10 MG TAB PO SCH (11:23)
[2017-10-23] MEDS: CITALOPRAM HYDROBROMIDE 40 MG TAB PO SCH (11:24)
[2017-10-23] MEDS: TOPIRAMATE 25 MG TAB PO SCH (11:24)
[2017-10-23] MEDS: FAMOTIDINE 20 MG TAB PO SCH (11:25)
[2017-10-23 12:04] VITALS: BP 131/60; PULSE 101; O2SAT 98
--- NOTE | 2017-10-23 13:28 | PD.CONS ---
HPI History of Present Illness This is a 82 year old F with PMH significant for CHF, HTN, GERD, hyperlipidemia , and recent treatment for C. Diff, according to [place] records was started on Flagyl and Cholestyramine October 19. Pt was sent from her custodial last night for reports of rectal bleeding. Pt has dementia and unable to provide history, therefore history has been obtained through chart review. Pt seen by our service for C. Diff colitis in August, was placed on PO Vanco and our service signed off. No previous colonoscopy or EGD seen in chart. No blood thinners on [facility]. (Abby Hernandez) PFSH Past Medical History Hyperlipidemia Dementia C Diff colitis GERD HTN Depression (Abby Hernandez) Coded Allergies: codeine (Unverified Allergy, Severe, Nausea/Vomiting, 10/22/17) ciprofloxacin (Verified Allergy, Intermediate, Rash, 10/22/17) Rash with itching when given intravenously Review of Systems Pt denies any complaints at this time. Per OPERATIONAL ASSISTANT pt has had multiple bloody BMs (Abby Hernandez) GI Exam Vitals I&O Vital Signs Date Time Temp Pulse Resp B/P (MAP) Pulse Ox O2 Delivery O2 Flow Rate FiO2 10/23/17 12:04 101 131/60 (83) 98 10/23/17 08:00 98.1 97 16 110/56 (74) 98 10/23/17 04:00 97.8 94 19 118/94 (102) 96 10/23/17 00:00 97.3 97 17 116/73 (87) 96 10/22/17 20:00 97.3 77 19 129/77 (94) 100 10/22/17 19:05 112 16 120/59 (79) 97 Nasal Cannula 3.00 10/22/17 15:40 98.8 10/22/17 15:13 94 24 131/71 (91) I/O 10/22/17 10/22/17 10/22/17 10/23/17 10/23/17 10/23/17 07:00 15:00 23:00 07:00 15:00 23:00 Output Total 650 ml Balance -650 ml Output Urine Total 650 ml # Bowel Movements 2 Imaging Last Impressions Chest X-Ray 10/22/17 0000 Signed Impressions: CONCLUSION: No evidence of acute cardiopulmonary disease. Laboratory Test 10/22/17 15:40 10/22/17 15:50 10/22/17 16:09 10/22/17 18:15 White Blood Count 10.7 TH/MM3 Red Blood Count 4.22 MIL/MM3 Hemoglobin 13.1 GM/DL Hematocrit 39.2 % Mean Corpuscular Volume 92.9 FL Mean Corpuscular Hemoglobin 31.0 PG Mean Corpuscular Hemoglobin Concent 33.3 % Red Cell Distribution Width 17.0 % Platelet Count 145 TH/MM3 Mean Platelet Volume 8.0 FL Neutrophils (%) (Auto) 52.5 % Lymphocytes (%) (Auto) 41.8 % Monocytes (%) (Auto) 5.5 % Eosinophils (%) (Auto) 0.1 % Basophils (%) (Auto) 0.1 % Neutrophils # (Auto) 5.6 TH/MM3 Lymphocytes # (Auto) 4.5 TH/MM3 Monocytes # (Auto) 0.6 TH/MM3 Eosinophils # (Auto) 0.0 TH/MM3 Basophils # (Auto) 0.0 TH/MM3 CBC Comment AUTO DIFF Differential Total Cells Counted 100 Neutrophils % (Manual) 48 % Band Neutrophils % 25 % Lymphocytes % 19 % Monocytes % 7 % Neutrophils # (Manual) 7.9 TH/MM3 Metamyelocytes 1 % Differential Comment FINAL DIFF MANUAL Platelet Estimate NORMAL Platelet Morphology Comment NORMAL Red Cell Morphology Comment NORMAL Prothrombin Time 15.1 SEC Prothromb Time International Ratio 1.5 RATIO Activated Partial Thromboplast Time 20.1 SEC Blood Urea Nitrogen 43 MG/DL Creatinine 0.95 MG/DL Random Glucose 121 MG/DL Calcium Level 7.8 MG/DL Sodium Level 133 MEQ/L Potassium Level 5.5 MEQ/L Chloride Level 104 MEQ/L Carbon Dioxide Level 16.2 MEQ/L Anion Gap 13 MEQ/L Estimat Glomerular Filtration Rate 57 ML/MIN Troponin I LESS THAN 0.02 NG/ML B-Type Natriuretic Peptide 44 PG/ML Blood Gas Puncture Site RT RADIAL Blood Gas Patient Temperature 98.6 Blood Gas HCO3 17 mmol/L Blood Gas Base Excess -6.0 mmol/L Blood Gas Oxygen Saturation 94 % Arterial Blood pH 7.50 Arterial Blood Partial Pressure CO2 21 mmHg Arterial Blood Partial Pressure O2 65 mmHG Arterial Blood Oxygen Content 16.6 Vol % Arterial Blood Carboxyhemoglobin 0.9 % Arterial Blood Methemoglobin 0.5 % Blood Gas Hemoglobin 12.6 G/DL Oxygen Delivery Device NASAL CANNULA Blood Gas Liter Flow 3 L/M Urine Color YELLOW Urine Turbidity CLEAR Urine pH 5.5 Urine Specific [place] 1.022 Urine Protein NEG mg/dL Urine Glucose (UA) NEG mg/dL Urine Ketones NEG mg/dL Urine Occult Blood TRACE Urine Nitrite NEG Urine Bilirubin NEG Urine Urobilinogen LESS THAN 2.0 MG/DL Urine Leukocyte Esterase SMALL Urine RBC 1 /hpf Urine WBC 2 /hpf Urine Squamous Epithelial Cells 1 /hpf Urine Mucus FEW /lpf Microscopic Urinalysis Comment CATH-CULT NOT IND Test 10/22/17 19:00 10/22/17 22:15 10/23/17 03:20 10/23/17 07:34 Lactic Acid Level 1.6 mmol/L Hemoglobin 11.6 GM/DL 12.2 GM/DL Hematocrit 34.9 % 36.7 % Stool C. difficile Toxin (PCR) NEGATIVE Stl C. difficile Toxin Epiderm 027 PRESUMPTIVE NEGATIVE White Blood Count 7.9 TH/MM3 Red Blood Count 3.92 MIL/MM3 Mean Corpuscular Volume 93.5 FL Mean Corpuscular Hemoglobin 31.0 PG Mean Corpuscular Hemoglobin Concent 33.1 % Red Cell Distribution Width 17.4 % Platelet Count 111 TH/MM3 Mean Platelet Volume 7.4 FL Blood Urea Nitrogen 37 MG/DL Creatinine 0.85 MG/DL Random Glucose 91 MG/DL Calcium Level 7.5 MG/DL Sodium Level 138 MEQ/L Potassium Level 4.4 MEQ/L Chloride Level 109 MEQ/L Carbon Dioxide Level 17.0 MEQ/L Anion Gap 12 MEQ/L Estimat Glomerular Filtration Rate 64 ML/MIN Date/Time Source Procedure Growth Status 10/22/17 18:55 Blood Peripheral Aerobic Blood Culture - Preliminary NO GROWTH IN 1 DAY Resulted 10/22/17 18:55 Blood Peripheral Anaerobic Blood Culture - Preliminary NO GROWTH IN 1 DAY Resulted 10/23/17 04:05 Wound Buttock Gram Stain Pending Received 10/23/17 04:05 Wound Buttock Wound Culture Pending Received Physical Examination HEENT: Normocephalic; atraumatic CHEST: Even/unlabored CARDIAC: RRR ABDOMEN: Obese, soft, nontender, bowel sounds active EXTREMITIES: BLE edema SKIN: Pale COMMUNITY SERVICE DIRECTOR: Alert, confused (Abby Hernandez) Assessment and Plan Plan Assessment: - Rectal bleeding with recent diagnosis of C. Diff According to [place] records, pt started on Flagyl and Cholestyramine on October 19, previously seen by our service in August for C. Diff and started on Vanco. C. diff tested is negative. Currently on Zosyn, Flagyl, Asacol H/H stable at this time No previous EGD or colonoscopy in chart - Dementia- pt unable to provide history - BLE edema Plan: Colonoscopy tomorrow Obtain consent Clear liquids today NPO after MN Golytely prep Serial H/H Zosyn and Flagyl Asacol Further recommendations based on clinical course and results of above Pt has been seen and examined by myself and Dr. Stevenson and this note is written on his behalf (Abby Hernandez) Physician Comments Seen with Abby, plan as above, Colonoscopy in AM. Thank you for the consult. (Tiffanie Stevenson MD) Abby Hernandez Oct 23, 2017 13:27 Tiffanie Stevenson MD Oct 23, 2017 14:51
[2017-10-23 15:23] LABS: HEMATOCRIT 32.4 % (35.0-46.0); HEMOGLOBIN 10.8 GM/DL (11.6-15.3)
[2017-10-23 15:30] VITALS: BP 106/53; PULSE 70; RESP 18; TEMP 97.3; O2SAT 96
--- NOTE | 2017-10-23 15:49 | EKG ---
Date Performed: 10/22/2017 Time Performed: 15:39:37 PTAGE: 82 years EKG: ELECTRONIC VENTRICULAR PACEMAKER ABNORMAL RHYTHM ECG PREVIOUS TRACING : 09/04/2017 16.33 Since previous tracing, no significant change. DOCTOR: Jason Ferguson Interpretating Date/Time 10/23/2017 15:48:42
[2017-10-23] MEDS ORDERED: PEG (High)/E-LYTE SOLN 4000 ML BTL PO ONE (16:00)
[2017-10-23] MEDS ORDERED: LACTATED RINGER'S 1000 ML IV PRN (18:45)
[2017-10-23] MEDS ORDERED: CHLORHEXIDINE GLUCONATE 2 % 1 PACK (2 CLOTHS) TOPICAL PRN (18:45)
[2017-10-23] MEDS ORDERED: SODIUM CHLORID 0.9% 500 ML IV PRN (18:45)
[2017-10-23] MEDS ORDERED: METOPROLOL TARTRATE 25 MG TAB PO PRN (18:45)
[2017-10-23] MEDS ORDERED: POVIDONE IODINE 5% (ANTISEPSIS KIT) 4 APPLICATIONS EACH NARE PRN (18:45)
[2017-10-23] MEDS: LORazepam 0.5 MG TAB PO PRN (18:52)
[2017-10-23 20:30] VITALS: BP 133/63; PULSE 80; RESP 22; TEMP 97.9; O2SAT 97
[2017-10-23] MEDS: DONEPEZIL HCL 5 MG TAB PO SCH (21:07)
[2017-10-23] MEDS: ATORVASTATIN 20 MG TAB PO SCH (21:08)
[2017-10-23 22:56] LABS: HEMATOCRIT 33.2 % (35.0-46.0)
[2017-10-24] VITALS (7 sets, daily range): BP systolic 100–113; BP diastolic 49–61; PULSE 80–98; RESP 18–22; TEMP 96.7–98.3; O2SAT 96–100
[2017-10-24] MEDS: SODIUM CHLOR 0.9% 1000 ML INJ 1,000 ML IV SCH ×2 (02:00→11:40)
[2017-10-24] MEDS: MESALAMINE HD 800 MG DELAYED RELEASE TAB PO SCH ×3 (05:34→22:25)
[2017-10-24] MEDS: metroNIDAZOLE 500 MG INJ 100 ML IV SCH ×2 (05:34→13:02)
[2017-10-24] MEDS: PIPERACIL-TAZO 3.375 GM PREMIX 50 ML IV SCH ×3 (05:52→22:25)
[2017-10-24] MEDS: PANTOPRAZOLE INJ 80 MG in SODIUM CHLORIDE 0.9% INJ 100 ML IV SCH ×2 (08:27→17:22)
[2017-10-24] MEDS: LISINOPRIL 10 MG TAB PO SCH (09:00)
[2017-10-24] MEDS: TOPIRAMATE 25 MG TAB PO SCH (09:00)
[2017-10-24] MEDS: VANCOMYCIN INJ 1,000 MG in SODIUM CHLOR 0.9% 250 ML INJ 250 ML IV SCH ×2 (10:21→22:55)
--- NOTE | 2017-10-24 11:04 | HHI.FPPN ---
Subjective Remarks 82 yo female admitted for GI bleed, sacral ulcer, and possible ongoing C difficile infection being seen for follow up. Today she "hurts all over." Stable pain level from yesterday. Still having bloody stools. No shortness of breath. Wound on sacrum not any more or less painful than yesterday. (Marcelo Hdez MD R2) Objective Vitals Vital Signs Date Time Temp Pulse Resp B/P (MAP) Pulse Ox O2 Delivery O2 Flow Rate FiO2 10/24/17 08:03 96.7 85 18 102/54 (70) 97 10/24/17 04:00 98.3 80 22 113/61 (78) 97 10/24/17 00:00 97.6 86 22 105/58 (74) 100 10/23/17 20:30 97.9 80 22 133/63 (86) 97 10/23/17 15:30 97.3 70 18 106/53 (70) 96 10/23/17 12:04 101 131/60 (83) 98 I/O 10/23/17 10/23/17 10/23/17 10/24/17 10/24/17 10/24/17 07:00 15:00 23:00 07:00 15:00 23:00 Intake Total 450 ml Output Total 650 ml 200 ml Balance -650 ml 250 ml Intake Oral 450 ml Output Urine Total 650 ml 200 ml # Bowel Movements 8 2 3 (Marcelo Hdez MD R2) Result Diagram: 10/23/17 2218 10/23/17 0734 Imaging Last Impressions Chest X-Ray 10/22/17 0000 Signed Impressions: CONCLUSION: No evidence of acute cardiopulmonary disease. Objective Remarks Pale elderly white female No resp distress, nontoxic. Soft, nontender, nondistended. Prajapati catheter in place, draining clear yellow urine. Sacral pressure ulcer noted, likely grade 3, measuring ~8 cm in diameter. No surrounding Smaller bloody stool on bed sheet. 1+ pitting edema up to mid-bob Medications and IVs Current Medications Medications (Trade) Dose Ordered Sig/Dianne Route Start Time Stop Time Status Last Admin Sodium Chloride 1,000 ml @ 50 mls/hr Q20H IV 10/22/17 18:00 10/23/17 21:16 (Zofran Odt) 4 mg Q6H PRN PO 10/22/17 18:15 (Aspirin Chew) 81 mg DAILY CHEW 10/23/17 09:00 Future Hold 10/23/17 11:24 (Lipitor) 20 mg HS PO 10/22/17 21:00 10/23/17 21:08 (CeleXA) 40 mg DAILY PO 10/23/17 09:00 10/23/17 11:24 (Santyl Oint) 1 applic DAILY TOPICAL 10/23/17 09:00 10/23/17 09:00 (Aricept) 5 mg HS PO 10/22/17 21:00 10/23/17 21:07 (Pepcid) 20 mg DAILY PO 10/23/17 09:00 10/23/17 11:25 (Tricor) 145 mg DAILY PO 10/23/17 09:00 10/23/17 11:23 (Prinivil) 10 mg DAILY PO 10/23/17 09:00 10/23/17 11:23 (Ativan) 0.5 mg Q6H PRN PO 10/22/17 18:30 10/23/17 18:52 (Asacol Hd Dr) 1,600 mg Q8HR PO 10/22/17 22:00 10/24/17 05:34 (Lopressor) 50 mg DAILY PO 10/23/17 09:00 Future Hold 10/23/17 11:23 (Topamax) 25 mg DAILY PO 10/23/17 09:00 10/23/17 11:24 Pantoprazole Sodium 80 mg/ Sodium Chloride 100 ml @ 10 mls/hr Q10H IV 10/23/17 02:00 10/24/17 08:27 Metronidazole 100 ml @ 100 mls/hr Q8H IV 10/22/17 21:00 11/05/17 20:59 10/24/17 05:34 Vancomycin HCl 1000 mg/Sodium Chloride 250 ml @ 250 mls/hr Q12H IV 10/22/17 23:00 10/24/17 10:21 Piperacillin Sod/ Tazobactam Sod 50 ml @ 100 mls/hr Q8H IV 10/22/17 22:00 10/24/17 05:52 Lactated Ringer's 1,000 ml @ 30 mls/hr Q24H PRN IV 10/23/17 18:45 10/26/17 18:44 Sodium Chloride 500 ml @ 30 mls/hr [id number] PRN IV 10/23/17 18:45 10/26/17 18:44 (Lopressor) 25 mg CONTINUOUS PROCESS MACHINE OPERATOR PRN PO 10/23/17 18:45 10/26/17 18:44 (Betadine 5% Antisepsis Kit) 1 applic CONTINUOUS PROCESS MACHINE OPERATOR PRN EACH NARE 10/23/17 18:45 10/26/17 18:44 (Chlorhexidine 2% Cloth) 3 pack CONTINUOUS PROCESS MACHINE OPERATOR PRN TOPICAL 10/23/17 18:45 10/26/17 18:44 (Marcelo Hdez MD R2) A/P Assessment and Plan Patient is an 82-year-old female with past history of dementia, CHF, HTN who presented from her correction ([facility]) with: (Marcelo Hdez MD R2) Attending Attestation Patient seen and examined, discussed with resident team. I agree with assessment and management as documented and discussed with me. Pt sleepy from sedation from colonoscopy at the time of my exam/interview. Appreciate GI. (Juliane Phillip MD) Problem List: (1) GI bleed ICD Codes: K92.2 - Gastrointestinal hemorrhage, unspecified Status: Acute Plan: Patient with reported 3 days of GI bleed. H/H stable -GI consulted, appreciate recs -Protonix. -Colonoscopy today -Will not anticoagulate at this time due to active bleed (2) SIRS (systemic inflammatory response syndrome) ICD Codes: R65.10 - Systemic inflammatory response syndrome (SIRS) of non- infectious origin without acute organ dysfunction Status: Resolved Plan: Patient presented with RR 24, P 94, bands 25. Suspect possible sacral ulcer infection; GI pathology less likely Consider C Diff colitis (although negative 10/23/2017) lactic acid 1.6 -Continue Vanc and Zosyn have been started -F/U wound, blood cultures -Sacral ulcer management as below (3) C. difficile colitis ICD Codes: A04.72 - Enterocolitis due to Clostridium difficile, not specified as recurrent Plan: Reported she is currently being treated for C. difficile at her correction Diarrhea likely due to gross GIB C diff PCR negative 10/23/17, confirmatory negative -Continue Flagyl to finish treatment course started as outpatient (4) Sacral decubitus ulcer ICD Codes: L89.159 - Pressure ulcer of sacral region, unspecified stage Plan: Sacral decubitus ulcer, likely stage III. Likely source of infection. -follow-up wound consults recommendations -Continue vanc/zosyn -Ulcer protocol (5) HTN (hypertension) ICD Codes: I10 - HTN (hypertension) Status: Chronic Plan: History of hypertension -Continue home medications. -Continue to monitor BP. (6) HLD (hyperlipidemia) ICD Codes: E78.5 - Hyperlipidemia, unspecified Status: Chronic Plan: History of hyperlipidemia. -Continue home medications (7) FEN/PPX Plan: Fluids: NS @ 50 cc/hr Elecs: Monitor, replete PRN Nutrition: NPO until colonoscopy GI: PPI DVT: SCDs (active GIB contraindicates pharm. ppx) Code status: Full code Dispo: Patient has a poor overall prognosis, given multiple co-morbidities. Will consult palliative care to assist with setting goals. (Marcelo Hdez MD R2) Problem Qualifiers (1) GI bleed: Qualified Codes: K92.2 - Gastrointestinal hemorrhage, unspecified (2) Sacral decubitus ulcer: Qualified Codes: L89.153 - Pressure ulcer of sacral region, stage 3 (3) HTN (hypertension): Qualified Codes: I10 - Essential (primary) hypertension Marcelo Hdez MD R2 Oct 24, 2017 11:04 Juliane Phillip MD Oct 24, 2017 20:29
[2017-10-24] MEDS ORDERED: PHENYLEPH/NS 1000 MCG/10 ML SYR IV ONE (12:00)
[2017-10-24] MEDS ORDERED: PROPOFOL 200 MG/20 ML AMP IV ONE (12:00)
[2017-10-24] MEDS ORDERED: LIDOCAINE HCL 1% PF 5 ML SYRINGE OTHER ONE (12:00)
--- NOTE | 2017-10-24 12:36 | GIPROC ---
[facility] [address] [facility]. [facility], [address] COLONOSCOPY PROCEDURE REPORT EXAM DATE: 10/24/2017 PATIENT NAME: Viji Wagoner MR #: [id number] BIRTHDATE: 1935 ENDOSCOPIST: Tiffanie Stevenson MD ORDER #: [id number] ASSISTANT PLANT CONTROLLER: Javi Min and Tracey Cadena STATUS: inpatient INDICATIONS: The patient is a 82 yr old female here for a colonoscopy due to hematochezia PROCEDURE PERFORMED: Sigmoidoscopy, biopsy MEDICATIONS: None and Per Anesthesia. PREP QUALITY: poor PREP TYPE:Magnesium Citrate ESTIMATED BLOOD LOSS: None CONSENT: The patient understands the risks and benefits of the procedure and understands that these risks include, but are not limited to: sedation, allergic reaction, infection, perforation and/or bleeding. Alternative means of evaluation and treatment include, among others: physical exam, x-rays, and/or surgical intervention. The patient elects to proceed with this endoscopic procedure. medical equipment was checked for proper function. Hand hygiene and appropriate measures for infection prevention was taken. After the risks, benefits and alternatives of the procedure were thoroughly explained, Informed consent was verified, confirmed and timeout was successfully executed by the treatment team. A digital exam revealed no abnormalities of the rectum The Pentax [id number] endoscope was introduced through the anus and advanced to the descending colon. The instrument was then slowly withdrawn as the colon was fully examined. COLON FINDINGS: A small patch of colitis was found in the sigmoid colon and rectum. The mucosa was edematous, erythematous and friable. Multiple biopsies of the area were performed using cold forceps. Retroflexion was not performed due to a narrow rectal vault The scope was then completely withdrawn from the patient and the procedure terminated. PROCEDURE WITHDRAWAL TIME:8minutes ADVERSE EVENTS: There were no complications. IMPRESSIONS: 1. Small colitis was found in the sigmoid colon and rectum; The mucosa was edematous, erythematous and friable; multiple biopsies of the area were performed using cold forceps , role out ischemic vs infectious. 2. Retroflexion was not performed due to a narrow rectal vault RECOMMENDATIONS: Await biopsy results. Biopsy results will not be ready for 7-10 days. If you don't hear from us in two weeks, call our office for results. RECALL: NONE Tiffanie Stevenson MD eSigned: Tiffanie Stevenson MD 10/24/2017 12:35 PM cc: PATIENT NAME: Viji Wagoner MR#: [id number]
[2017-10-24] MEDS: LACTOBACILLUS ACIDOPHILUS 1 GM PACKET PO SCH ×2 (13:00→17:22)
[2017-10-24] MEDS: COLLAGENASE OINT 30 GM TUBE TOPICAL SCH (13:04)
[2017-10-24] MEDS: CITALOPRAM HYDROBROMIDE 40 MG TAB PO SCH (13:05)
[2017-10-24] MEDS: FAMOTIDINE 20 MG TAB PO SCH (13:05)
[2017-10-24] MEDS: FENOFIBRATE 145 MG TAB PO SCH (13:06)
[2017-10-24] MEDS ORDERED: ACETAMINOPHEN/HYDROcodone 325 MG/5 MG TAB PO PRN ×2 (14:45)
--- NOTE | 2017-10-24 15:03 | PD.CONS ---
Consult Service Palliative Care Consult Requested By Dr. Szymanski/ Dr. Kenji MD. Primary Care Physician Unknown Reason for Consultation a. To assist with evaluation and management of symptoms including: Debility , Dyspnea. b. To assist medical decision maker(s) with: better understanding of current medical conditions; weighing benefits/burdens of medical treatment options; making medical treatment decisions. . HPI History of Present Illness Ms. Wagoner is an 82 y/o female with a medical history significant for dementia, CHF, C. difficile colitis, osteoarthritis, hypertension, GERD and generalized debility. Patient presented to ED via EMS on 10/22/17 for evaluation of rectal bleed present for the prior [address] [facility] short-term rehab since 09/13/17 due to generalized weakness post hospitalization from 09/03 to 09/13 secondary to C. difficile colitis, UTI and leukocytosis. ED workup to include chest x-ray negative for acute process. Laboratory workup revealing WBC 10.7, Hgb 13.1, platelet count 145. Sodium 133 , potassium 5.5, BUN/creatinine 43/0.95. Troponin less than 0.02. ABG with PCO2 of 21 on 3 L nasal cannula. Patient was found hypotensive and tachypneic. She was admitted for further monitoring and management. Gastroenterology, Dr. Stevenson consulted on 10/23/17. Patient with active rectal bleeding with a recent diagnosis of C. difficile colitis. C. difficile CPR negative on 10/23/17. Patient underwent sigmoidoscopy with biopsy on 10/24/17. No complications reported. Small colitis was found in the sigmoid colon and rectum , multiple biopsies performed. H&H remained stable, patient was continued on Protonix anticoagulation on hold at this time secondary to active bleeding. Patient has been continued on vancomycin son Zosyn. Patient with stage III sacral wound measuring approximately 8 cm in diameter, concerns of infectious process. Palliative care has been consulted for further clarifications of goals of care given overall guarded prognosis in the setting of GI bleed, C. difficile colitis, multiple chronic comorbidities, advanced age and profound physical deconditioning. Reviewed recent prior hospitalization from 09/03 to 09/08/17. Patient presented to ED with complaints of diarrhea. CT abdomen/pelvis consistent with colitis. Positive C. difficile, leukocytosis of 21,000. GI and ID were consulted. Patient was continued with antibiotic treatment, number of stools were greatly reduced. Patient was discharge to [facility] for acute rehab given profound deconditioning.. Patient seen in her room. Remains lightly sleepy status post sigmoidoscopy. Patient alert and oriented x self, confused as to place and situation. Endorsing generalized pain, very tender to touch of extremities during my assessment. Endorsing generalized abdominal discomfort, denies nausea or vomiting. Afebrile, stable hemodynamically. Currently tolerating O2 via nasal cannula at 3L. Hemoglobin remained stable at 11.0. History of CHF, BNP 44. Buttocks wound culture positive for Pseudomonas. Telephone conversation with patient's nephew Jerrod Giordano. In this first visit, reviewed the role of palliative care in advanced illness in regards to symptom management as well as support surrounding goals of care and advance care planning. Nephew receptive to conversation. Obtained patient's past medical history and psychosocial history. Reviewed events leading to this hospitalization, clinical course and current medical management. Share concerns of patient's clinical condition and high risk for further decompensation, cont decline and in the setting of GI bleed, C. difficile colitis, multiple chronic comorbidities, advanced age and profound physical deconditioning. Nephew tells me that patient has a signed DNR at home, encourage nephew to bring copy for records. Nephew requesting to change CODE STATUS to DNR/DNI as per patient's known wishes. Goals of treatment remain aggressive at this time short of no resuscitation. Nephew to visit patient tomorrow, he is expected to leave to [place] on , 10/27/17, his daughter Fiona will be local contact. . Function/Cognitive Trajectory Patient residing independently prior to August 2017. Ambulating with walker. After acute hospitalization from 09/03/17 to 09/13/17, patient was transferred to [facility] for short-term acute rehabilitation secondary to physical deconditioning. Nephew reports that patient has been mostly bedbound since previous acute care hospitalization in August. Mild dementia baseline. . Review of Systems ROS Limitations: Clinical Condition, Altered Mental Status Constitutional: COMPLAINS OF: Change in appetite, Pain, Generalized weakness, DENIES: Fever Endocrine: DENIES: Heat/cold intolerance Eyes: DENIES: Eye inflammation Ears, nose, mouth, throat: DENIES: Hearing loss, Nasal discharge, Oral lesions , Running Nose, Epistaxis Respiratory: COMPLAINS OF: Shortness of breath, DENIES: Cough Cardiovascular: COMPLAINS OF: Dyspnea on Exertion, DENIES: Chest pain, Lower Extremity Edema Gastrointestinal: COMPLAINS OF: Bloody stools, DENIES: Nausea, Vomiting, Difficulty Swallowing Genitourinary: DENIES: Hematuria Musculoskeletal: COMPLAINS OF: Muscle aches Integumentary: DENIES: Rash, Tumors Hematologic/Lymphatics: COMPLAINS OF: Bruising Immunologic/Allergic: DENIES: Eczema Neurologic: COMPLAINS OF: Poor Balance, DENIES: Localized weakness, Seizures, Tremor Psychiatric: COMPLAINS OF: Anxiety, Confusion, DENIES: Hallucinations, Agitation Past Family Social History Coded Allergies: codeine (Unverified Allergy, Severe, Nausea/Vomiting, 10/22/17) ciprofloxacin (Verified Allergy, Intermediate, Rash, 10/22/17) Rash with itching when given intravenously Past Medical History CHF Hypertension Mild dementia Hyperlipidemia C Diff colitis GERD Depression Osteoarthritis Breast cancer status post mastectomy . Past Surgical History Mastectomy AICD Cardiac catheterization Right total hip arthroplasty Dupuytren's release in both hands . Reported Medications Mesalamine DR (Mesalamine) 800 Mg Tab 1,600 Mg PO Q8HR 5 Days Vancomycin Inj (Vancomycin HCl) 500 Mg Inj 250 Mg PO QID 11 Days Santyl Topical (Collagenase) 250 Unit/Gm Oint 1 Applic TOPICAL DAILY Metronidazole 500 Mg Tab 500 Mg PO BID Aricept (Donepezil) 23 Mg Tab 5 Mg PO HS Fosinopril (Fosinopril Sodium) 10 Mg Tab 10 Mg PO DAILY Fenofibrate 145 Mg Tab 145 Mg PO DAILY Atorvastatin (Atorvastatin Calcium) 20 Mg Tab 20 Mg PO HS Aspirin Low Dose (Aspirin) 81 Mg Chew 81 Mg CHEW DAILY Metoprolol Tartrate 50 Mg Tab 50 Mg PO DAILY Topiramate 25 Mg Tab 25 Mg PO DAILY Famotidine 20 Mg Tab 20 Mg PO DAILY Citalopram (Citalopram Hydrobromide) 40 Mg Tab 40 Mg PO DAILY Tramadol (Tramadol HCl) 50 Mg Tab 50 Mg PO Q6H PRN Lorazepam 0.5 Mg Tab 0.5 Mg PO Q6H PRN . Current Medications Medications (Trade) Dose Ordered Sig/Dianne Route Start Time Stop Time Status Last Admin Sodium Chloride 1,000 ml @ 50 mls/hr Q20H IV 10/22/17 18:00 10/23/17 21:16 (Zofran Odt) 4 mg Q6H PRN PO 10/22/17 18:15 (Aspirin Chew) 81 mg DAILY CHEW 10/23/17 09:00 Future Hold 10/23/17 11:24 (Lipitor) 20 mg HS PO 10/22/17 21:00 10/23/17 21:08 (CeleXA) 40 mg DAILY PO 10/23/17 09:00 10/24/17 13:05 (Santyl Oint) 1 applic DAILY TOPICAL 10/23/17 09:00 10/24/17 13:04 (Aricept) 5 mg HS PO 10/22/17 21:00 10/23/17 21:07 (Pepcid) 20 mg DAILY PO 10/23/17 09:00 10/24/17 13:05 (Tricor) 145 mg DAILY PO 10/23/17 09:00 10/24/17 13:06 (Prinivil) 10 mg DAILY PO 10/23/17 09:00 10/24/17 09:00 (Ativan) 0.5 mg Q6H PRN PO 10/22/17 18:30 10/23/17 18:52 (Asacol Hd ) 1,600 mg Q8HR PO 10/22/17 22:00 10/24/17 05:34 (Lopressor) 50 mg DAILY PO 10/23/17 09:00 Future Hold 10/23/17 11:23 (Topamax) 25 mg DAILY PO 10/23/17 09:00 10/24/17 09:00 Pantoprazole Sodium 80 mg/ Sodium Chloride 100 ml @ 10 mls/hr Q10H IV 10/23/17 02:00 10/24/17 08:27 Metronidazole 100 ml @ 100 mls/hr Q8H IV 10/22/17 21:00 11/05/17 20:59 10/24/17 13:02 Vancomycin HCl 1000 mg/Sodium Chloride 250 ml @ 250 mls/hr Q12H IV 10/22/17 23:00 10/24/17 10:21 Piperacillin Sod/ Tazobactam Sod 50 ml @ 100 mls/hr Q8H IV 10/22/17 22:00 10/24/17 05:52 Lactated Ringer's 1,000 ml @ 30 mls/hr Q24H PRN IV 10/23/17 18:45 10/26/17 18:44 Sodium Chloride 500 ml @ 30 mls/hr Q17Q60V PRN IV 10/23/17 18:45 10/26/17 18:44 (Lopressor) 25 mg OCCASIONAL BABYSITTER PRN PO 10/23/17 18:45 10/26/17 18:44 (Betadine 5% Antisepsis Kit) 1 applic OCCASIONAL BABYSITTER PRN EACH NARE 10/23/17 18:45 10/26/17 18:44 (Chlorhexidine 2% Cloth) 3 pack OCCASIONAL BABYSITTER PRN TOPICAL 10/23/17 18:45 10/26/17 18:44 (Lactinex Pkt) 1 gm TID PO 10/24/17 13:00 10/24/17 13:00 Family History Patient's father at 89 years old. Patient's mother of unknown causes. . Substance Use Tobacco: Denies. Alcohol: Denies. Prescription med abuse: Denies. Illicits: Denies. . Psychosocial History Patient originally from [place]. Patient is . Has no biological children. Nephamarilys Bae has been taking care of patient for the past 7 years. She worked in a [employer]. . Spiritual/Cultural Factors Sabianist ebenezer. . Durable Power of Calender Inspector: Copy in medical record Date completed: 07/22/2010. . Health Care Surrogate(s): DURABLE POWER OF MECHANICAL TECHNOLOGIST for financial matters only. Patient is , no biological children. Both parents are , no siblings. POA nephamarilys Bae is healthcare proxy decision maker in the absence of healthcare surrogate designation. . Family/friends goals: Aggressive management short of no resuscitation. . Ethical and Legal Issues No ethical legal issues identified. . Physical Exam Vital Signs Date Time Temp Pulse Resp B/P (MAP) Pulse Ox O2 Delivery O2 Flow Rate FiO2 10/24/17 12:29 96.9 87 18 100/55 (70) 98 10/24/17 08:03 96.7 85 18 102/54 (70) 97 10/24/17 04:00 98.3 80 22 113/61 (78) 97 10/24/17 00:00 97.6 86 22 105/58 (74) 100 10/23/17 20:30 97.9 80 22 133/63 (86) 97 10/23/17 15:30 97.3 70 18 106/53 (70) 96 10/24/17 10/25/17 19:00 07:00 Intake Total 100 ml Balance 100 ml Other 100 ml Exam CONSTITUTIONAL/GENERAL: This is an elderly lady resting in bed in moderate distress secondary to reported generalized pain. Facial grimacing noted. TUBES/LINES/DRAINS: Nasal cannula, PIV, Prajapati catheter. SKIN: No jaundice, rashes, or lesions. Large areas of ecchymoses on upper extremities. Venous stasis skin changes to bilateral lower extremities. No wounds seen anteriorly. Skin temperature appropriate. Sacral pressure ulcer reported but not seen, pt supine. HEAD: Atraumatic. Normocephalic. EYES: Pupils equal and round and reactive. Extraocular motions intact. No scleral icterus. No injection or drainage. ENT: Hearing grossly normal. Nose without bleeding or purulent drainage. Moist oral mucosa. NECK: Trachea midline. Supple, nontender. CARDIOVASCULAR: Regular rate and rhythm. Peripheral pulses symmetric. RESPIRATORY/CHEST: Symmetric, unlabored respirations. Clear, diminished to auscultation. Breath sounds equal bilaterally. GASTROINTESTINAL: Abdomen soft, large, nondistended, tender to palpation. Bowel sounds present. GENITOURINARY: Without palpable bladder distension. Prajapati catheter in place. MUSCULOSKELETAL: Extremities without clubbing, cyanosis. No mottling or clubbing. Edema to bilateral upper extremities, weeping edema to left arm. NEUROLOGICAL: Sleepy. Alert to self, confused as to place and situation. Moves all extremities. PSYCHIATRIC: Calm. . Diagnostic Tests Laboratory Laboratory Tests Test 10/22/17 15:40 10/22/17 15:50 10/22/17 16:09 10/22/17 18:15 White Blood Count 10.7 TH/MM3 (4.0-11.0) Red Blood Count 4.22 MIL/MM3 (4.00-5.30) Hemoglobin 13.1 GM/DL (11.6-15.3) Hematocrit 39.2 % (35.0-46.0) Mean Corpuscular Volume 92.9 FL (80.0-100.0) Mean Corpuscular Hemoglobin 31.0 PG (27.0-34.0) Mean Corpuscular Hemoglobin Concent 33.3 % (32.0-36.0) Red Cell Distribution Width 17.0 % (11.6-17.2) Platelet Count 145 TH/MM3 (150-450) Mean Platelet Volume 8.0 FL (7.0-11.0) Neutrophils (%) (Auto) 52.5 % (16.0-70.0) Lymphocytes (%) (Auto) 41.8 % (9.0-44.0) Monocytes (%) (Auto) 5.5 % (0.0-8.0) Eosinophils (%) (Auto) 0.1 % (0.0-4.0) Basophils (%) (Auto) 0.1 % (0.0-2.0) Neutrophils # (Auto) 5.6 TH/MM3 (1.8-7.7) Lymphocytes # (Auto) 4.5 TH/MM3 (1.0-4.8) Monocytes # (Auto) 0.6 TH/MM3 (0-0.9) Eosinophils # (Auto) 0.0 TH/MM3 (0-0.4) Basophils # (Auto) 0.0 TH/MM3 (0-0.2) CBC Comment AUTO DIFF Differential Total Cells Counted 100 Neutrophils % (Manual) 48 % (16-70) Band Neutrophils % 25 % (0-6) Lymphocytes % 19 % (9-44) Monocytes % 7 % (0-8) Neutrophils # (Manual) 7.9 TH/MM3 (1.8-7.7) Metamyelocytes 1 % (0-1) Differential Comment FINAL DIFF MANUAL Platelet Estimate NORMAL (NORMAL) Platelet Morphology Comment NORMAL (NORMAL) Red Cell Morphology Comment NORMAL (NORMAL) Prothrombin Time 15.1 SEC (9.8-11.6) Prothromb Time International Ratio 1.5 RATIO Activated Partial Thromboplast Time 20.1 SEC (24.3-30.1) Blood Urea Nitrogen 43 MG/DL (7-18) Creatinine 0.95 MG/DL (0.50-1.00) Random Glucose 121 MG/DL (74-106) Calcium Level 7.8 MG/DL (8.5-10.1) Sodium Level 133 MEQ/L (136-145) Potassium Level 5.5 MEQ/L (3.5-5.1) Chloride Level 104 MEQ/L (98-107) Carbon Dioxide Level 16.2 MEQ/L (21.0-32.0) Anion Gap 13 MEQ/L (5-15) Estimat Glomerular Filtration Rate 57 ML/MIN (>89) Troponin I LESS THAN 0.02 NG/ML B-Type Natriuretic Peptide 44 PG/ML (0-100) Blood Gas Puncture Site RT RADIAL Blood Gas Patient Temperature 98.6 Blood Gas HCO3 17 mmol/L (22-26) Blood Gas Base Excess -6.0 mmol/L (-2-2) Blood Gas Oxygen Saturation 94 % (90-100) Arterial Blood pH 7.50 (7.380-7.420) Arterial Blood Partial Pressure CO2 21 mmHg (38-42) Arterial Blood Partial Pressure O2 65 mmHG (61-120) Arterial Blood Oxygen Content 16.6 Vol % (12.0-20.0) Arterial Blood Carboxyhemoglobin 0.9 % (0-4) Arterial Blood Methemoglobin 0.5 % (0-2) Blood Gas Hemoglobin 12.6 G/DL (12.0-16.0) Oxygen Delivery Device NASAL CANNULA Blood Gas Liter Flow 3 L/M Urine Color YELLOW (YELLW/STRAW) Urine Turbidity CLEAR (CLEAR) Urine pH 5.5 (5.0-8.5) Urine Specific [place] 1.022 (1.002-1.035) Urine Protein NEG mg/dL (NEG-TRACE) Urine Glucose (UA) NEG mg/dL (NEG) Urine Ketones NEG mg/dL (NEG) Urine Occult Blood TRACE (NEG) Urine Nitrite NEG (NEG) Urine Bilirubin NEG (NEG) Urine Urobilinogen LESS THAN 2.0 MG/DL (LESS Urine Leukocyte Esterase SMALL (NEG) Urine RBC 1 /hpf (0-3) Urine WBC 2 /hpf (0-5) Urine Squamous Epithelial Cells 1 /hpf (0-5) Urine Mucus FEW /lpf (OCC) Microscopic Urinalysis Comment CATH-CULT NOT IND Test 10/22/17 19:00 10/22/17 22:15 10/23/17 03:20 10/23/17 07:34 Lactic Acid Level 1.6 mmol/L (0.4-2.0) Hemoglobin 11.6 GM/DL (11.6-15.3) 12.2 GM/DL (11.6-15.3) Hematocrit 34.9 % (35.0-46.0) 36.7 % (35.0-46.0) Stool C. difficile Toxin (PCR) NEGATIVE (NEGATIVE) Stl C. difficile Toxin Epiderm 027 PRESUMPTIVE NEGATIVE White Blood Count 7.9 TH/MM3 (4.0-11.0) Red Blood Count 3.92 MIL/MM3 (4.00-5.30) Mean Corpuscular Volume 93.5 FL (80.0-100.0) Mean Corpuscular Hemoglobin 31.0 PG (27.0-34.0) Mean Corpuscular Hemoglobin Concent 33.1 % (32.0-36.0) Red Cell Distribution Width 17.4 % (11.6-17.2) Platelet Count 111 TH/MM3 (150-450) Mean Platelet Volume 7.4 FL (7.0-11.0) Blood Urea Nitrogen 37 MG/DL (7-18) Creatinine 0.85 MG/DL (0.50-1.00) Random Glucose 91 MG/DL (74-106) Calcium Level 7.5 MG/DL (8.5-10.1) Sodium Level 138 MEQ/L (136-145) Potassium Level 4.4 MEQ/L (3.5-5.1) Chloride Level 109 MEQ/L (98-107) Carbon Dioxide Level 17.0 MEQ/L (21.0-32.0) Anion Gap 12 MEQ/L (5-15) Estimat Glomerular Filtration Rate 64 ML/MIN (>89) Test 10/23/17 14:36 10/23/17 22:18 Hemoglobin 10.8 GM/DL (11.6-15.3) 11.0 GM/DL (11.6-15.3) Hematocrit 32.4 % (35.0-46.0) 33.2 % (35.0-46.0) Result Diagram: 10/23/17 2218 10/23/17 0734 Microbiology Microbiology Date/Time Source Procedure Growth Status 10/22/17 18:55 Blood Peripheral Aerobic Blood Culture - Preliminary NO GROWTH IN 2 DAYS Resulted 10/22/17 18:55 Blood Peripheral Anaerobic Blood Culture - Preliminary NO GROWTH IN 2 DAYS Resulted 10/22/17 18:50 Blood Peripheral Aerobic Blood Culture - Preliminary NO GROWTH IN 2 DAYS Resulted 10/22/17 18:50 Blood Peripheral Anaerobic Blood Culture - Preliminary NO GROWTH IN 2 DAYS Resulted 10/23/17 04:05 Wound Buttock Gram Stain - Final Resulted 10/23/17 04:05 Wound Culture - Preliminary Pseudomonas Species Resulted Imaging Last Impressions Chest X-Ray 10/22/17 0000 Signed Impressions: CONCLUSION: No evidence of acute cardiopulmonary disease. Procedures * 10/24/17 -sigmoidoscopy with biopsy . Patient/Family Conference Present at Family Conference: Patient, lissy Bae. . Family Conference Time (mins): 35 Family Conference Location: Bedside, Telephone Issues Discussed: * Palliative care role, purpose, approach * Additional medical, psychosocial, and spiritual history * Patients general health, functional status, and cognitive changes in the months leading up to the current hospitalization * Patient/family understanding of the current medical problems * Patient/family understanding of prognosis * Patients goals of care as best understood from advance directives and/or conversations and/or values * Current medical treatment options and benefits/burdens of those options * Questions answered to the best of my ability * Palliative care contact information provided * Risks, benefits and limitations of CPR, intubation and mechanical ventilation . Assessment and Plan Disease Oriented Problem List: (1) GI bleed (2) C. difficile colitis (3) SIRS (systemic inflammatory response syndrome) (4) Sacral decubitus ulcer (5) Physical deconditioning Symptom Scale: (1) Debility 0-10 Scale: Unable to quantify (2) Shortness of breath 0-10 Scale: Unable to quantify (3) Pain 0-10 Scale: Unable to quantify Pertinent Non-Medical Issues Psychosocial: Patient originally from [place]. Patient is . Has no biological children. Lissy Bae has been taking care of patient for the past 7 years. She worked in a [employer]. Spiritual: Sabianist ebenezer. Legal: Advance directives completed. Ethical issues impacting care: No ethical issues identified. . Important Contacts Nephamarilys/YANETH Bae Faustino Raymond . Prognosis Ms. Wagoner is an 82 y/o female with a medical history significant for dementia, CHF, C. difficile colitis, osteoarthritis, hypertension, GERD and generalized debility. Patient presented to ED via EMS on 10/22/17 for evaluation of rectal bleed present for the prior [address] [facility] short-term rehab since 09/13/17 due to generalized weakness post hospitalization from 09/03 to 09/13 secondary to C. difficile colitis, UTI and leukocytosis. She was admitted for further monitoring and management. Patient at high risk for further complications, continue decline as given GI bleed , C. difficile colitis, multiple chronic comorbidities, advanced age and profound physical deconditioning. Overall prognosis guarded. . Code Status: No Code Plan * CODE STATUS: DNR/DNI. Pt's nephew Jerrod reports that patient has a signed community DNR at home, he will bring for our records. * HEALTHCARE DECISION-MAKING: Patient with limited participation in goals of care today secondary to sedation status post sigmoidoscopy. Mild dementia at baseline but family reports that she was able to participate previously. Power of trust and estates attorney in records for financial matters only. Patient is , no biological children, both parents are and no siblings. As per [place] statue, in the absence of surrogate decision-maker, healthcare proxy decision making falls to patient's only next of kin/nephew Jerrod Bae/patient's POA for financial matters. * GOALS OF CARE: As per patient's nephew Jerrod Bae acting as healthcare proxy decision maker, goal of therapy remains aggressive short of NO resuscitation. He will like to maximize patient's medical management, allow a few days for clinical improvement. Nephew receptive to palliative care follow-up given patient's overall condition and guarded prognosis. * SYMPTOMS: = Dyspnea: Multifactorial secondary to CHF, acute illness and physical deconditioning. Currently tolerating O2 via nasal cannula 3 L. = Pain : History of chronic pain. Home regimen of tramadol 50 mg every 6 hours as needed. Minto 5/325 mg 1-2 tabs available every 6 hours as needed, none given in the past 24 hours. No recommendations at this time. =Debility: Progressive. Worsened since acute C. difficile colitis in August. Patient receiving acute rehabilitation prior to this hospitalization. Nephew reports that patient has been mostly bedbound since August. Debility not likely to improve. * Case discussed with bedside FAY Freitas. * Palliative care contact information has been provided to patient and family. * Palliative care will continue to follow up for further clarification of goals of care as patient's clinical course continues to evolve. . Time Spent Total Floor Time (mins): 62 (Total time to include reviewing summarization of available medical records to include prior acute hospitalization, physical exam , goals of care conversation with patient nephew, case discussion with bedside RN.) >50% Counseling/Coord of Care: Yes Thank you for the opportunity to participate in the care of Ms. Wagoner. Attestation To help prompt me to consider important information that might be impacting today's encounter and assessment, information from prior notes written by myself or my colleagues may have been "brought forward" into today's note. My signature on this note, however, is an attestation that I personally performed the exam, history, and/or decision-making noted today, and, unless otherwise indicated, the interactions with patient, family, and staff as well as the review of records all occurred today. I also attest that the listed assessment and stated plan reflect my best clinical judgment today based on the combination of historical information, prior notes, and today's exam/ interactions. When time spent is documented, it refers only to time spent today by the signer, or if indicated, combined time spent today by collaborating physician/nurse practitioner. Chela Owen Oct 24, 2017 15:00
[2017-10-24] MEDS: ACETAMINOPHEN 325 MG TAB PO SCH ×2 (15:15→22:25)
--- NOTE | 2017-10-24 17:16 | OTSOAPIP ---
RECEIVED OCCUPATIONAL THERAPY ORDERS. ATTEMPTED TO SEE PATIENT, HOWEVER PATIENT WAS OFF FLOOR. WILL REATTEMPT TOMORROW. INTERDISCIPLINARY COMMUNICATION: REVIEWED ELECTRONIC MEDICAL RECORD Therapist: Enid Mccord OTR/Lizzie Signature on file
[2017-10-24 17:19] LABS: HEMATOCRIT 35.6 % (35.0-46.0); HEMOGLOBIN 11.8 GM/DL (11.6-15.3)
--- NOTE | 2017-10-24 17:28 | PD.WCN.NOT ---
Wound Consult Description: Consult for WOUND MANAGEMENT of Decubitus ulcer per Faileric MCGARRY on 10/22/17. Communicated with: Zena APONTE Recommendation: Continue to cleanse wound with NS and apply the already ordered Santyl daily to sacrum unstageable pressure injury. Reposition patient Q2H from LEFT to RIGHT sides only, limiting time spent on back for therapies only. Obtain and place patient on Hartley AIRAPY low air loss mattress and use ONLY ultrasorb pad under neath patient for moisture. Additional Information: Patient seen on for wound evaluation of sacrum. Patient was positioned to her left side for assessment with FAY Freitas. Patient was positive for hematochezia, constantly being cleansed during assessment of unstageable wound on sacrum. Wound measures 7.2cm x 5cm x necrotic slough. Periwound is noted with partial thickness skin loss and jagged wound margins that were skin prepped with Cavilon skin barrier film. Wound was cleansed with NS and gauze prior to applying nickel thick Santyl to sterile 4x4 gauze pad slightly moistened with NS. Moistened gauze pad with Santyl was applied to wound bed from edge to edge of wound margins and secured with a bordered gauze dressing. Patient was then repositioned to remove all soiled underpads and placed on her right side. Evelina Yeung [facility] Oct 24, 2017 17:28
[2017-10-24] MEDS: DONEPEZIL HCL 5 MG TAB PO SCH (22:26)
[2017-10-24] MEDS: metroNIDAZOLE 500 MG TAB PO SCH (22:26)
[2017-10-24] MEDS: ATORVASTATIN 20 MG TAB PO SCH (22:26)
[2017-10-25 00:30] VITALS: BP 114/54; PULSE 96; RESP 18; TEMP 98.4; O2SAT 95
[2017-10-25] MEDS: ACETAMINOPHEN 325 MG TAB PO SCH ×3 (04:06→15:21)
[2017-10-25] MEDS: PANTOPRAZOLE INJ 80 MG in SODIUM CHLORIDE 0.9% INJ 100 ML IV SCH (04:06)
[2017-10-25 05:14] VITALS: BP 107/53; PULSE 80; RESP 18; TEMP 97.4; O2SAT 97
[2017-10-25] MEDS: MESALAMINE HD 800 MG DELAYED RELEASE TAB PO SCH ×2 (05:52→13:00)
[2017-10-25] MEDS: metroNIDAZOLE 500 MG TAB PO SCH ×2 (05:52→13:00)
[2017-10-25] MEDS: PIPERACIL-TAZO 3.375 GM PREMIX 50 ML IV SCH ×2 (05:52→13:00)
[2017-10-25] MEDS: SODIUM CHLOR 0.9% 1000 ML INJ 1,000 ML IV SCH (07:40)
[2017-10-25 08:20] VITALS: BP 96/46; PULSE 76; RESP 18; TEMP 96.7; O2SAT 95
[2017-10-25] MEDS: FENOFIBRATE 145 MG TAB PO SCH (08:22)
[2017-10-25] MEDS: TOPIRAMATE 25 MG TAB PO SCH (08:22)
[2017-10-25] MEDS: LACTOBACILLUS ACIDOPHILUS 1 GM PACKET PO SCH ×3 (08:23→17:47)
[2017-10-25] MEDS: FAMOTIDINE 20 MG TAB PO SCH (08:23)
[2017-10-25] MEDS: CITALOPRAM HYDROBROMIDE 40 MG TAB PO SCH (08:23)
[2017-10-25] MEDS: LISINOPRIL 10 MG TAB PO SCH ×2 (08:23→08:25)
[2017-10-25] MEDS: COLLAGENASE OINT 30 GM TUBE TOPICAL SCH (08:24)
--- NOTE | 2017-10-25 09:37 | HHI.FPPN ---
Subjective Remarks No acute events overnight. Patient had a rectal tube placed overnight due to watery/runny bloody diarrhea and nearby sacral ulcer. Vitals stable. Patient confused this AM, no change from baseline. (Michaela Menon MD R1) Objective Vitals Vital Signs Date Time Temp Pulse Resp B/P (MAP) Pulse Ox O2 Delivery O2 Flow Rate FiO2 10/25/17 08:20 96.7 76 18 96/46 (63) 95 10/25/17 05:14 97.4 80 18 107/53 (71) 97 10/25/17 00:30 98.4 96 18 114/54 (74) 95 10/24/17 20:24 97.8 98 18 96 10/24/17 20:00 103/55 (71) 10/24/17 16:13 98.0 89 18 112/49 (70) 98 10/24/17 12:29 96.9 87 18 100/55 (70) 98 I/O 10/24/17 10/24/17 10/24/17 10/25/17 10/25/17 10/25/17 07:00 15:00 23:00 07:00 15:00 23:00 Intake Total 450 ml 100 ml 50 ml 490 ml Output Total 200 ml 250 ml Balance 250 ml -150 ml 50 ml 490 ml Intake Oral 450 ml 240 ml IV Total 50 ml 250 ml Other 100 ml Output Urine Total 200 ml 250 ml # Voids 1 # Bowel Movements 3 3 (Michaela Menon MD R1) Result Diagram: 10/24/17 1632 10/23/17 0734 Objective Remarks Pale elderly white female No resp distress, nontoxic. lungs clear to auscultation bilaterally. Regular rate and rhythm. Soft, nontender, nondistended. Prajapati catheter in place, draining clear yellow urine.Left midline PICC in place (from [facility]). Rectal tube in place, no drainage visible. 1+ pitting edema up to mid-bob (Michaela Menon MD R1) A/P Assessment and Plan Patient is an 82-year-old female with past history of dementia, CHF, HTN who presented from her snf ([facility]) with: Discharge Planning Per palliative note: "GOALS OF CARE: As per patient's nephew Jerrod Bae acting as healthcare proxy decision maker, goal of therapy remains aggressive short of NO resuscitation. He will like to maximize patient's medical management, allow a few days for clinical improvement. Nephew receptive to palliative care follow-up given patient's overall condition and guarded prognosis." Plan to monitor in the next few days for decreased bloody stool output and to continue abx and wound care. (Michaela Menon MD R1) Attending Attestation Patient seen and examined, discussed with resident team. I agree with assessment and management as documented and discussed with me. PT continues to have bloody diarrhea from colitis. Continue antibiotics. Prognosis remains guarded. (Juliane Phillip MD) Problem List: (1) GI bleed ICD Codes: K92.2 - Gastrointestinal hemorrhage, unspecified Status: Acute Plan: H/H stable Diff: ischemic v cdiff -GI consulted, appreciate recs -Protonix. -Colonoscopy 10/24: Small colitis in the sigmoid colon and rectum, mucosa was edematous, erythematous and friable, multiple biopsies to rule out. Infectious vs ischemia. - Rectal tube in place (10/24-). Con't to monitor for improvement (2) C. difficile colitis ICD Codes: A04.72 - Enterocolitis due to Clostridium difficile, not specified as recurrent Plan: C diff PCR negative 10/23/17, confirmatory negative Colitis seen per colonoscopy, con't flagyl per GI recs (to finish course) Con't Vanc to ensure adequate treatment for colitis recurrence -Continue Flagyl to finish treatment course started as outpatient, switch to PO flagyl today (more effective) (3) Sacral decubitus ulcer ICD Codes: L89.159 - Pressure ulcer of sacral region, unspecified stage Plan: Sacral decubitus ulcer, likely stage III. Cx + for MRSA and Pseudomonas. Sensitivities to zosyn and cefepime -Appreciate wound consults recommendations: - cleanse w/normal saline - apply nickel thick Santyl to sterile gauze pads - apply gauze to wound bed to extent of wound margins - secure w/gauze dressing - Continue vanc/zosyn (4) HTN (hypertension) ICD Codes: I10 - HTN (hypertension) Status: Chronic Plan: History of hypertension -Continue lisinopril. Hold if SBP<100 -Continue to monitor BP. (5) HLD (hyperlipidemia) ICD Codes: E78.5 - Hyperlipidemia, unspecified Status: Chronic Plan: History of hyperlipidemia. -Continue home lipitor (6) FEN/PPX Plan: Fluids: NS @ 50 cc/hr Elecs: Monitor, replete PRN Nutrition: NPO until colonoscopy GI: PPI DVT: SCDs (active GIB contraindicates pharm. ppx) Code status: Full code Dispo: Patient has a poor overall prognosis, given multiple co-morbidities. (Michaela Menon MD R1) Problem Qualifiers (1) GI bleed: Qualified Codes: K92.2 - Gastrointestinal hemorrhage, unspecified (2) Sacral decubitus ulcer: Qualified Codes: L89.153 - Pressure ulcer of sacral region, stage 3 (3) HTN (hypertension): Qualified Codes: I10 - Essential (primary) hypertension Michaela Menon MD R1 Oct 25, 2017 09:37 Juliane Phillip MD Oct 25, 2017 21:08
--- NOTE | 2017-10-25 10:05 | HHI.GIFU ---
Subjective Remarks Pt resting in bed Flexiseal with bloody stool noted in tubing, no stool in collection bag Breakfast tray at bedside, pt states does not feel like eating Abdomen diffusely tender to palpation (Abby Hernandez LICENSED AIRCRAFT MAINTENANCE ENGINEER) Objective Vitals I&O Vital Signs Date Time Temp Pulse Resp B/P (MAP) Pulse Ox O2 Delivery O2 Flow Rate FiO2 10/25/17 08:20 96.7 76 18 96/46 (63) 95 10/25/17 05:14 97.4 80 18 107/53 (71) 97 10/25/17 00:30 98.4 96 18 114/54 (74) 95 10/24/17 20:24 97.8 98 18 96 10/24/17 20:00 103/55 (71) 10/24/17 16:13 98.0 89 18 112/49 (70) 98 10/24/17 12:29 96.9 87 18 100/55 (70) 98 I/O 10/24/17 10/24/17 10/24/17 10/25/17 10/25/17 10/25/17 07:00 15:00 23:00 07:00 15:00 23:00 Intake Total 450 ml 100 ml 50 ml 490 ml Output Total 200 ml 250 ml Balance 250 ml -150 ml 50 ml 490 ml Intake Oral 450 ml 240 ml IV Total 50 ml 250 ml Other 100 ml Output Urine Total 200 ml 250 ml # Voids 1 # Bowel Movements 3 3 Laboratory Laboratory Tests Test 10/24/17 16:32 Hemoglobin 11.8 Hematocrit 35.6 Date/Time Source Procedure Growth Status 10/22/17 18:55 Blood Peripheral Aerobic Blood Culture - Preliminary NO GROWTH IN 2 DAYS Resulted 10/22/17 18:55 Blood Peripheral Anaerobic Blood Culture - Preliminary NO GROWTH IN 2 DAYS Resulted 10/23/17 04:05 Wound Buttock Gram Stain - Final Resulted 10/23/17 04:05 Wound Culture - Preliminary Pseudomonas Species Resulted Imaging Last Impressions Chest X-Ray 10/22/17 0000 Signed Impressions: CONCLUSION: No evidence of acute cardiopulmonary disease. Physical Exam HEENT: Normocephalic; atraumatic CHEST: Even/unlabored CARDIAC: RRR ABDOMEN: Soft, nondistended, diffusely tender, bowel sounds active. Flexiseal with bloody stool in tubing, no stool in collection bag . EXTREMITIES: BLE edema (Abby Hernandez) Assessment and Plan Plan Assessment: - Rectal bleeding with recent diagnosis of C. Diff According to [place] records, pt started on Flagyl and Cholestyramine on October 19, previously seen by our service in August for C. Diff and started on Vanco. C. diff tested is negative. Currently on Zosyn, Flagyl, Asacol H/H stable at this time No previous EGD or colonoscopy in chart - Dementia- pt unable to provide history - BLE edema (10/25) S/P colonoscopy yesterday. Pt with bloody stool in Flexiseal tubing, no stool in collection bag. H/H remains stable, no blood transfusion since admission. Remains on Flagyl and Vanco Colonoscopy --> Small colitis in the sigmoid colon and rectum, mucosa was edematous, erythematous and friable, multiple biopsies to rule out infectious vs ischemic. Plan: Zosyn and Flagyl Asacol Monitor stool output Further recommendations based on clinical course and results of above Pt has been seen and examined by myself and Dr. Stevenson and this note is written on his behalf (Abby Hernandez) Physician Comments Stable overnight, plan as above, colitis by colonoscopy suggestive of infectious colitis vs ischemic. Continue current treatment plan. Will follow up with you. (Tiffanie Stevenson MD) Abby Hernandez Oct 25, 2017 10:05 Tiffanie Stevenson MD Oct 25, 2017 12:21
[2017-10-25] MEDS: VANCOMYCIN INJ 1,000 MG in SODIUM CHLOR 0.9% 250 ML INJ 250 ML IV SCH (10:10)
[2017-10-25 10:56] LABS: AUTOMATED NEUTROPHIL # 3.6 TH/MM3 (1.8-7.7); BASOPHIL % 0.2 % (0.0-2.0); EOSINOPHIL % 0.4 % (0.0-4.0); HEMATOCRIT 28.5 % (35.0-46.0); HEMOGLOBIN 9.5 GM/DL (11.6-15.3); LYMPH % 47.9 % (9.0-44.0); LYMPHOCYTE # 3.7 TH/MM3 (1.0-4.8); MEAN CORPUSCULAR HEMOGLOBIN 30.9 PG (27.0-34.0); MEAN CORPUSCULAR HGB CONC 33.3 % (32.0-36.0); MEAN PLATELET VOLUME 7.4 FL (7.0-11.0); MONOCYTE # 0.3 TH/MM3 (0-0.9); NEUT % 47.5 % (16.0-70.0); PLATELET COUNT 134 TH/MM3 (150-450); RED BLOOD COUNT 3.06 MIL/MM3 (4.00-5.30); WHITE BLOOD COUNT 7.6 TH/MM3 (4.0-11.0)
[2017-10-25] MEDS ORDERED: PANTOPRAZOLE SODIUM 40 MG VIAL IV PUSH SCH (11:00)
[2017-10-25 11:14] LABS: BICARBONATE 17.2 MEQ/L (21.0-32.0); CALCIUM 7.6 MG/DL (8.5-10.1); CREATININE 1.1 MG/DL (0.50-1.00)
[2017-10-25 12:17] VITALS: BP 86/45; PULSE 82; RESP 18; TEMP 97.3; O2SAT 95
--- NOTE | 2017-10-25 13:03 | HHI.HCPN ---
Reason for visit a. To assist with evaluation and management of symptoms including: Debility , Dyspnea. b. To assist medical decision maker(s) with: better understanding of current medical conditions; weighing benefits/burdens of medical treatment options; making medical treatment decisions. . Subjective/Interval History Follow-up for further goals of care clarification. Patient seen in her room, resting in air mattress moderate distress. Facial grimacing noted, patient endorsing abdominal pain but unable to elaborate any further. Patient alert and oriented x self, confused as to place and situation. Endorsing feeling "pretty bad" secondary to pain. Reports poor appetite, denies nausea/vomiting. Wound care following for sacral wound, patient currently on air mattress. Rectal tube in place with small amount of bloody stools in tubing. Laboratory workup today revealing hemoglobin of 9.5 from 11.8 yesterday, BUN/creatinine 36/ 1.10. No new imaging for review. Patient afebrile, slightly hypertensive with SBP in the mid 80s to mid 90s since earlier this morning. Tolerating O2 via nasal cannula at 3 L with oxygen saturation in the mid 90s. . Family/friend interactions Met with patient's nephew/YANETH Jerrod Bae. Medical update provided. Reviewed patient's overall poor prognosis in the setting of GI bleed, C. difficile colitis, multiple chronic comorbidities, advanced age and profound physical deconditioning. Nephew reports that patient's quality of life has been greatly affected since August 2017, receiving rehabilitation since with minimal improvement. Patient mostly bedbound since August and currently experiencing sequela from it such as pressure ulcer and worsening debility. Nephew verbalized that patient's quality of life if there are main goal. Hospice philosophy and benefits introduced given overall poor prognosis. Discussed continuation of conservative management short of no code versus comfort directed care with hospice. Nephew considering transition to comfort with hospice, likely discharge to hospice care center for symptom management and end- of-life care. Hospice referral made. Case discussed with bedside RN. . Advance Directives Durable Power of Post Form Remover: Copy in medical record Advance Directive Specifics Date completed: 07/22/2010. . Health Care Surrogate(s): DURABLE POWER OF BEATER ROOM HELPER for financial matters only. Patient is , no biological children. Both parents are , no siblings. PODevin yuan Jerrod Bae is healthcare proxy decision maker in the absence of healthcare surrogate designation. . Significant change in goals: Comfort directed care with hospice. . Objective Vital Signs Date Time Temp Pulse Resp B/P (MAP) Pulse Ox O2 Delivery O2 Flow Rate FiO2 10/25/17 12:17 97.3 82 18 86/45 (59) 95 10/25/17 08:20 96.7 76 18 96/46 (63) 95 10/25/17 05:14 97.4 80 18 107/53 (71) 97 10/25/17 00:30 98.4 96 18 114/54 (74) 95 10/24/17 20:24 97.8 98 18 96 10/24/17 20:00 103/55 (71) 10/24/17 16:13 98.0 89 18 112/49 (70) 98 Intake & Output 10/25/17 10/25/17 07:00 19:00 Intake Total 540 ml Balance 540 ml Intake Oral 240 ml IV Total 300 ml # Voids 1 # Bowel Movements 3 Physical Exam CONSTITUTIONAL/GENERAL: This is an elderly lady resting in bed in moderate distress secondary to pain. Facial grimacing noted. TUBES/LINES/DRAINS: Nasal cannula, PIV, Prajapati catheter, rectal tube. PICC line to left arm. SKIN: No jaundice, rashes, or lesions. Large areas of ecchymoses on upper extremities. Venous stasis skin changes to bilateral lower extremities. No wounds seen anteriorly. Skin temperature appropriate. Sacral pressure ulcer reported but not seen, pt supine. HEAD: Atraumatic. Normocephalic. EYES: Pupils equal and round and reactive. Extraocular motions intact. No scleral icterus. No injection or drainage. ENT: Hearing grossly normal. Nose without bleeding or purulent drainage. Moist oral mucosa. NECK: Trachea midline. Supple, nontender. CARDIOVASCULAR: Regular rate and rhythm. Peripheral pulses symmetric. RESPIRATORY/CHEST: Symmetric, unlabored respirations. Clear, diminished to auscultation. Breath sounds equal bilaterally. GASTROINTESTINAL: Abdomen soft, large, nondistended, tender to palpation. Bowel sounds present. Rectal tube in place with small amount of bloody stools in tube. GENITOURINARY: Without palpable bladder distension. Prajapati catheter in place. MUSCULOSKELETAL: Extremities without clubbing, cyanosis. No mottling or clubbing. Edema to bilateral upper extremities, weeping edema to left arm. NEUROLOGICAL: Sleepy. Alert to self, confused as to place and situation. Moves all extremities. PSYCHIATRIC: anxious. . Diagnostic Tests Laboratory Laboratory Tests Test 10/22/17 15:40 10/22/17 15:50 10/22/17 16:09 10/22/17 18:15 White Blood Count 10.7 TH/MM3 (4.0-11.0) Red Blood Count 4.22 MIL/MM3 (4.00-5.30) Hemoglobin 13.1 GM/DL (11.6-15.3) Hematocrit 39.2 % (35.0-46.0) Mean Corpuscular Volume 92.9 FL (80.0-100.0) Mean Corpuscular Hemoglobin 31.0 PG (27.0-34.0) Mean Corpuscular Hemoglobin Concent 33.3 % (32.0-36.0) Red Cell Distribution Width 17.0 % (11.6-17.2) Platelet Count 145 TH/MM3 (150-450) Mean Platelet Volume 8.0 FL (7.0-11.0) Neutrophils (%) (Auto) 52.5 % (16.0-70.0) Lymphocytes (%) (Auto) 41.8 % (9.0-44.0) Monocytes (%) (Auto) 5.5 % (0.0-8.0) Eosinophils (%) (Auto) 0.1 % (0.0-4.0) Basophils (%) (Auto) 0.1 % (0.0-2.0) Neutrophils # (Auto) 5.6 TH/MM3 (1.8-7.7) Lymphocytes # (Auto) 4.5 TH/MM3 (1.0-4.8) Monocytes # (Auto) 0.6 TH/MM3 (0-0.9) Eosinophils # (Auto) 0.0 TH/MM3 (0-0.4) Basophils # (Auto) 0.0 TH/MM3 (0-0.2) CBC Comment AUTO DIFF Differential Total Cells Counted 100 Neutrophils % (Manual) 48 % (16-70) Band Neutrophils % 25 % (0-6) Lymphocytes % 19 % (9-44) Monocytes % 7 % (0-8) Neutrophils # (Manual) 7.9 TH/MM3 (1.8-7.7) Metamyelocytes 1 % (0-1) Differential Comment FINAL DIFF MANUAL Platelet Estimate NORMAL (NORMAL) Platelet Morphology Comment NORMAL (NORMAL) Red Cell Morphology Comment NORMAL (NORMAL) Prothrombin Time 15.1 SEC (9.8-11.6) Prothromb Time International Ratio 1.5 RATIO Activated Partial Thromboplast Time 20.1 SEC (24.3-30.1) Blood Urea Nitrogen 43 MG/DL (7-18) Creatinine 0.95 MG/DL (0.50-1.00) Random Glucose 121 MG/DL (74-106) Calcium Level 7.8 MG/DL (8.5-10.1) Sodium Level 133 MEQ/L (136-145) Potassium Level 5.5 MEQ/L (3.5-5.1) Chloride Level 104 MEQ/L (98-107) Carbon Dioxide Level 16.2 MEQ/L (21.0-32.0) Anion Gap 13 MEQ/L (5-15) Estimat Glomerular Filtration Rate 57 ML/MIN (>89) Troponin I LESS THAN 0.02 NG/ML B-Type Natriuretic Peptide 44 PG/ML (0-100) Blood Gas Puncture Site RT RADIAL Blood Gas Patient Temperature 98.6 Blood Gas HCO3 17 mmol/L (22-26) Blood Gas Base Excess -6.0 mmol/L (-2-2) Blood Gas Oxygen Saturation 94 % (90-100) Arterial Blood pH 7.50 (7.380-7.420) Arterial Blood Partial Pressure CO2 21 mmHg (38-42) Arterial Blood Partial Pressure O2 65 mmHG (61-120) Arterial Blood Oxygen Content 16.6 Vol % (12.0-20.0) Arterial Blood Carboxyhemoglobin 0.9 % (0-4) Arterial Blood Methemoglobin 0.5 % (0-2) Blood Gas Hemoglobin 12.6 G/DL (12.0-16.0) Oxygen Delivery Device NASAL CANNULA Blood Gas Liter Flow 3 L/M Urine Color YELLOW (YELLW/STRAW) Urine Turbidity CLEAR (CLEAR) Urine pH 5.5 (5.0-8.5) Urine Specific Iron 1.022 (1.002-1.035) Urine Protein NEG mg/dL (NEG-TRACE) Urine Glucose (UA) NEG mg/dL (NEG) Urine Ketones NEG mg/dL (NEG) Urine Occult Blood TRACE (NEG) Urine Nitrite NEG (NEG) Urine Bilirubin NEG (NEG) Urine Urobilinogen LESS THAN 2.0 MG/DL (LESS Urine Leukocyte Esterase SMALL (NEG) Urine RBC 1 /hpf (0-3) Urine WBC 2 /hpf (0-5) Urine Squamous Epithelial Cells 1 /hpf (0-5) Urine Mucus FEW /lpf (OCC) Microscopic Urinalysis Comment CATH-CULT NOT IND Test 10/22/17 19:00 10/22/17 22:15 10/23/17 03:20 10/23/17 07:34 Lactic Acid Level 1.6 mmol/L (0.4-2.0) Hemoglobin 11.6 GM/DL (11.6-15.3) 12.2 GM/DL (11.6-15.3) Hematocrit 34.9 % (35.0-46.0) 36.7 % (35.0-46.0) Stool C. difficile Toxin (PCR) NEGATIVE (NEGATIVE) Stl C. difficile Toxin Epiderm 027 PRESUMPTIVE NEGATIVE White Blood Count 7.9 TH/MM3 (4.0-11.0) Red Blood Count 3.92 MIL/MM3 (4.00-5.30) Mean Corpuscular Volume 93.5 FL (80.0-100.0) Mean Corpuscular Hemoglobin 31.0 PG (27.0-34.0) Mean Corpuscular Hemoglobin Concent 33.1 % (32.0-36.0) Red Cell Distribution Width 17.4 % (11.6-17.2) Platelet Count 111 TH/MM3 (150-450) Mean Platelet Volume 7.4 FL (7.0-11.0) Blood Urea Nitrogen 37 MG/DL (7-18) Creatinine 0.85 MG/DL (0.50-1.00) Random Glucose 91 MG/DL (74-106) Calcium Level 7.5 MG/DL (8.5-10.1) Sodium Level 138 MEQ/L (136-145) Potassium Level 4.4 MEQ/L (3.5-5.1) Chloride Level 109 MEQ/L (98-107) Carbon Dioxide Level 17.0 MEQ/L (21.0-32.0) Anion Gap 12 MEQ/L (5-15) Estimat Glomerular Filtration Rate 64 ML/MIN (>89) Test 10/23/17 14:36 10/23/17 22:18 10/24/17 16:32 10/25/17 09:40 Hemoglobin 10.8 GM/DL (11.6-15.3) 11.0 GM/DL (11.6-15.3) 11.8 GM/DL (11.6-15.3) 9.5 GM/DL (11.6-15.3) Hematocrit 32.4 % (35.0-46.0) 33.2 % (35.0-46.0) 35.6 % (35.0-46.0) 28.5 % (35.0-46.0) White Blood Count 7.6 TH/MM3 (4.0-11.0) Red Blood Count 3.06 MIL/MM3 (4.00-5.30) Mean Corpuscular Volume 93.0 FL (80.0-100.0) Mean Corpuscular Hemoglobin 30.9 PG (27.0-34.0) Mean Corpuscular Hemoglobin Concent 33.3 % (32.0-36.0) Red Cell Distribution Width 17.0 % (11.6-17.2) Platelet Count 134 TH/MM3 (150-450) Mean Platelet Volume 7.4 FL (7.0-11.0) Neutrophils (%) (Auto) 47.5 % (16.0-70.0) Lymphocytes (%) (Auto) 47.9 % (9.0-44.0) Monocytes (%) (Auto) 4.0 % (0.0-8.0) Eosinophils (%) (Auto) 0.4 % (0.0-4.0) Basophils (%) (Auto) 0.2 % (0.0-2.0) Neutrophils # (Auto) 3.6 TH/MM3 (1.8-7.7) Lymphocytes # (Auto) 3.7 TH/MM3 (1.0-4.8) Monocytes # (Auto) 0.3 TH/MM3 (0-0.9) Eosinophils # (Auto) 0.0 TH/MM3 (0-0.4) Basophils # (Auto) 0.0 TH/MM3 (0-0.2) CBC Comment DIFF FINAL Differential Comment Blood Urea Nitrogen 36 MG/DL (7-18) Creatinine 1.10 MG/DL (0.50-1.00) Random Glucose 163 MG/DL (74-106) Calcium Level 7.6 MG/DL (8.5-10.1) Sodium Level 141 MEQ/L (136-145) Potassium Level 3.7 MEQ/L (3.5-5.1) Chloride Level 113 MEQ/L (98-107) Carbon Dioxide Level 17.2 MEQ/L (21.0-32.0) Anion Gap 11 MEQ/L (5-15) Estimat Glomerular Filtration Rate 48 ML/MIN (>89) Result Diagram: 10/25/1740 10/25/17 0940 Microbiology Microbiology Date/Time Source Procedure Growth Status 10/22/17 18:55 Blood Peripheral Aerobic Blood Culture - Preliminary NO GROWTH IN 3 DAYS Resulted 10/22/17 18:55 Blood Peripheral Anaerobic Blood Culture - Preliminary NO GROWTH IN 3 DAYS Resulted 10/22/17 18:50 Blood Peripheral Aerobic Blood Culture - Preliminary NO GROWTH IN 3 DAYS Resulted 10/22/17 18:50 Blood Peripheral Anaerobic Blood Culture - Preliminary NO GROWTH IN 3 DAYS Resulted 10/23/17 04:05 Wound Buttock Gram Stain - Final Resulted 10/23/17 04:05 Wound Culture - Preliminary S. Aureus Mrsa Pseudomonas Aeruginosa Resulted Procedures * 10/24/17 -sigmoidoscopy with biopsy . Assessment and Plan Disease Oriented Problem List: (1) GI bleed (2) C. difficile colitis (3) SIRS (systemic inflammatory response syndrome) (4) Sacral decubitus ulcer (5) Physical deconditioning Symptom Scale: (1) Debility 0-10 Scale: Unable to quantify (2) Shortness of breath 0-10 Scale: Unable to quantify (3) Pain 0-10 Scale: Unable to quantify Pertinent Non-Medical Issues Psychosocial: Patient originally from [place]. Patient is . Has no biological children. Nephew Jerrod Bae has been taking care of patient for the past 7 years. She worked in a [employer]. Spiritual: Holiness ebenezer. Legal: Advance directives completed. Ethical issues impacting care: No ethical issues identified. . Important Contacts Nephew/RANDA Jerrod Bae Ninelson Jaimes Segundo . Prognosis Ms. Wagoner is an 82 y/o female with a medical history significant for dementia, CHF, C. difficile colitis, osteoarthritis, hypertension, GERD and generalized debility. Patient presented to ED via EMS on 10/22/17 for evaluation of rectal bleed present for the prior 2 days. Patient at [facility] short-term rehab since 09/13/17 due to generalized weakness post hospitalization from 09/03 to 09/13 secondary to C. difficile colitis, UTI and leukocytosis. She was admitted for further monitoring and management. Patient at high risk for further complications, continue decline as given GI bleed , C. difficile colitis, multiple chronic comorbidities, advanced age and profound physical deconditioning. Overall prognosis guarded. . Code Status: No Code Plan * CODE STATUS: DNR/DNI. Pt's nephamarilys Elder reports that patient has a signed community DNR at home, he will bring for our records. * HEALTHCARE DECISION-MAKING: Patient with limited participation in goals of care today secondary to sedation status post sigmoidoscopy. Mild dementia at baseline but family reports that she was able to participate previously. Power of business attorney in records for financial matters only. Patient is , no biological children, both parents are and no siblings. As per [place] statue, in the absence of surrogate decision-maker, healthcare proxy decision making falls to patient's only next of kin/nephew Jerrod Bae/patient's POA for financial matters. * GOALS OF CARE: Patient's nephew Jerrod Bae acting as healthcare proxy decision maker is considering transitioning patient to comfort-directed care with hospice given patient's overall poor prognosis and known wished. Hospice referral made, likely DC to hospice care center for symptom management of pain, dyspnea, anxiety. * SYMPTOMS: = Dyspnea: Multifactorial secondary to CHF, acute illness and physical deconditioning. Currently tolerating O2 via nasal cannula 3 L. = Pain : History of chronic pain. Home regimen of tramadol 50 mg every 6 hours as needed. [place] 5/325 mg 1-2 tabs available every 6 hours as needed, 1 dose given in the past 24 hours. No recommendations at this time. =Debility: Progressive. Worsened since acute C. difficile colitis in August. Patient receiving acute rehabilitation prior to this hospitalization. Nephew reports that patient has been mostly bedbound since August. Debility not likely to improve. * Case discussed with bedside RN. * Palliative care contact information has been provided to patient and family. * Palliative care will continue to follow up for further clarification of goals of care as patient's clinical course continues to evolve. . Time Spent Total Floor Time (mins): 41 (Total time to include review of medical records, physical exam, goals of care conversation with patient's nephew/healthcare proxy , case discussion with bedside RN and an/ssn 2 4 operator.) >50% Counseling/Coord of Care: Yes Attestation To help prompt me to consider important information that might be impacting today's encounter and assessment, information from prior notes written by myself or my colleagues may have been "brought forward" into today's note. My signature on this note, however, is an attestation that I personally performed the exam, history, and/or decision-making noted today, and, unless otherwise indicated, the interactions with patient, family, and staff as well as the review of records all occurred today. I also attest that the listed assessment and stated plan reflect my best clinical judgment today based on the combination of historical information, prior notes, and today's exam/ interactions. When time spent is documented, it refers only to time spent today by the signer, or if indicated, combined time spent today by collaborating physician/nurse practitioner. Chela Owen Oct 25, 2017 13:03
[2017-10-25 13:11] VITALS: BP 115/51; PULSE 81; RESP 18; O2SAT 98
[2017-10-25 16:00] VITALS: BP 98/57; PULSE 84; RESP 18; TEMP 97.6; O2SAT 97
--- NOTE | 2017-10-25 16:47 | HHI.DCPOC ---
Discharge Care Plan Diagnosis: (1) C. difficile colitis (2) Sacral decubitus ulcer (3) SIRS (systemic inflammatory response syndrome) (4) Shortness of breath (5) Debility Goals to Promote Your Health * To prevent worsening of your condition and complications * To maintain your health at the optimal level Directions to Meet Your Goals Take your medications as prescribed Follow your dietary instruction Follow activity as directed Keep your appointments as scheduled Take your immunizations and boosters as scheduled If your symptoms worsen call your PCP, if no PCP go to Urgent Care Center or Emergency Room Smoking is Dangerous to Your Health. Avoid second hand smoke Call the 24-hour hour crisis hotline for domestic abuse at Marcelo Hdez MD R2 Oct 25, 2017 4:47 pm
[2017-10-25] MEDS: LORazepam 0.5 MG TAB PO PRN (18:30)
[2017-10-25] MEDS ORDERED: PIPERACIL-TAZO 2.25 GM PREMIX 50 ML IV SCH (20:00)
== END 2017-10-25 19:50 | disposition hospice, inpatient (51) | DRG 377 ==
LOC: NEPC 15:05 → NEDA 17:53 → N05B 20:07
PROVIDERS: ADMIT Family Medicine; ATTEND Family Medicine
PROC: 0DBN8ZX Excision of Sigmoid Colon, Via Natural or Artificial Opening Endoscopic, Diagnostic (ICD-10-PCS; 2017-10-24)
PROC: 0DBP8ZX Excision of Rectum, Via Natural or Artificial Opening Endoscopic, Diagnostic (ICD-10-PCS; principal; 2017-10-24 12:13)
DX: K92.2 Gastrointestinal hemorrhage, unspecified (principal); L89.153 Pressure ulcer of sacral region, stage 3; A04.72 Enterocolitis due to Clostridium difficile, not specified as recurrent; I11.0 Hypertensive heart disease with heart failure; I50.9 Heart failure, unspecified; R65.10 Systemic inflammatory response syndrome (SIRS) of non-infectious origin without acute organ dysfunction; F03.90 Unspecified dementia, unspecified severity, without behavioral disturbance, psychotic disturbance, mood disturbance, and anxiety; E87.1 Hypo-osmolality and hyponatremia; E86.0 Dehydration; K52.9 Noninfective gastroenteritis and colitis, unspecified; E78.5 Hyperlipidemia, unspecified; M81.0 Age-related osteoporosis without current pathological fracture; M19.90 Unspecified osteoarthritis, unspecified site; F32.9 Major depressive disorder, single episode, unspecified; K21.9 Gastro-esophageal reflux disease without esophagitis; R60.0 Localized edema; Z66 Do not resuscitate; Z85.3 Personal history of malignant neoplasm of breast; Z90.10 Acquired absence of unspecified breast and nipple; Z96.641 Presence of right artificial hip joint; Z87.891 Personal history of nicotine dependence
CPT/HCPCS: 36600; 51702; 71045; 76937; 80048; 81001; 82805; 83605; 83880; 84484; 85007; 85014; 85018; 85025; 85027; 85610; 85730; 86403; 86850; 86900; 86901; 87040; 87070; 87077; 87147; 87186; 87205; 87493; 88305; 93005; 96365; C9113; J2370; J2543; J3370; J7030; J7050